=== PATIENT | male | born 1970 | race Caucasian/White ===

== ENCOUNTER 2016-05-06 15:39 | Emergency (ER) | payer MEDICARE ==
[2015-06-15 11:07] VITALS: BMI 22.3
[~2016-05-06 15:39] MED LIST: HYDROCODONE-APA1 TAB PO; KEFLEX500 MG PO; OXYCONTIN80 MG PO; PROTONIX40 MG PO; ROXICODONE30 MG PO; XANAX2 MG PO
[2016-05-06 21:13] LABS: BASOPHILS 0.2 % (0.0-2.0); EOSINOPHILS 1.8 % (0-7); HEMATOCRIT 40.6 % (42.0-54.0); HEMOGLOBIN 13.5 g/dL (13.5-17.5); IMMATURE GRANULOCYTES 0.3 % (0-5); LYMPHOCYTES 9.7 % (15-50); MCH 29.2 pg (26.0-34.0); MCHC 33.3 g/dL (31.0-37.0); MCV 87.7 fL (80.0-100.0); MEAN PLATELET VOLUME 9.4 fL (7.4-10.4); MONOCYTES 12.5 % (2-11); NEUTROPHILS 75.5 % (40-80); PLATELET COUNT 202 10x3/uL (130-400); RBC 4.63 10x6/uL (4.20-6.10); RDW 13.8 % (11.5-14.5); WBC 11.7 10x3/uL (4.8-10.8)
[2016-05-06 21:39] LABS: ALKALINE PHOSPHATASE 358 U/L (46-116); ALT (SGPT) 145 U/L (10-68); BILIRUBIN - TOTAL 0.99 mg/dL (0.2-1.3); CALC OSMOLALITY 279 mosm/kg (275-300); CALCIUM 8.1 mg/dL (8.5-10.1); CARBON DIOXIDE 29.6 mmol/L (21.0-32.0); CHLORIDE - SERUM 101 mmol/L (98-107); CREATINE KINASE 122 UL (21-232); CREATININE - SERUM 0.7 mg/dL (0.6-1.3); GLUCOSE 99 mg/dL (74-106); POTASSIUM - SERUM 3.8 mmol/L (3.5-5.1); PROTEIN - SERUM 6.8 g/dL (6.4-8.2); SODIUM 140 mmol/L (136-145); UREA NITROGEN 14 mg/dL (7-18); eGFR NON AFRICAN AMERICAN > 90 mL/min (90-120)
[2016-05-16 16:14] LABS: AEROBE ID Final report (())
== END 2016-05-06 23:58 | disposition home or self-care (01) ==
LOC: D.ER 15:39
PROVIDERS: Emergency Medicine
DX: T24.311A Burn of third degree of right thigh, initial encounter (principal); T79.9XXA Unspecified early complication of trauma, initial encounter; W29.2XXA Contact with other powered household machinery, initial encounter; Y93.84 Activity, sleeping; Y92.019 Unspecified place in single-family (private) house as the place of occurrence of the external cause; R50.9 Fever, unspecified; G82.20 Paraplegia, unspecified; B19.20 Unspecified viral hepatitis C without hepatic coma; F32.9 Major depressive disorder, single episode, unspecified; F60.9 Personality disorder, unspecified

== ENCOUNTER 2016-06-04 15:12 | Emergency (ER) | payer MEDICARE ==
[2015-06-15 11:07] VITALS: BMI 22.3
== END 2016-06-04 17:37 | disposition home or self-care (01) ==
LOC: D.ER 15:12
DX: T24.201A Burn of second degree of unspecified site of right lower limb, except ankle and foot, initial encounter (principal); T31.0 Burns involving less than 10% of body surface; X16.XXXA Contact with hot heating appliances, radiators and pipes, initial encounter; Y93.89 Activity, other specified; Y92.019 Unspecified place in single-family (private) house as the place of occurrence of the external cause; L03.115 Cellulitis of right lower limb; B19.20 Unspecified viral hepatitis C without hepatic coma; F33.9 Major depressive disorder, recurrent, unspecified; F60.9 Personality disorder, unspecified

== ENCOUNTER 2016-07-09 11:14 | Emergency (ER) | payer MEDICARE ==
[2015-06-15 11:07] VITALS: BMI 22.3
== END 2016-07-09 15:56 | disposition home or self-care (01) ==
LOC: D.ER 11:14
DX: T24.001D Burn of unspecified degree of unspecified site of right lower limb, except ankle and foot, subsequent encounter (principal); X08.8XXD Exposure to other specified smoke, fire and flames, subsequent encounter; B19.20 Unspecified viral hepatitis C without hepatic coma; F60.9 Personality disorder, unspecified

== ENCOUNTER 2016-08-21 13:43 | Emergency (ER) | payer MEDICARE ==
[2015-06-15 11:07] VITALS: BMI 22.3
[2016-08-21 15:42] LABS: BASOPHILS 0.4 % (0-2); HEMATOCRIT 45.2 % (42.0-54.0); HEMOGLOBIN 14.3 g/dL (13.5-17.5); IMMATURE GRANULOCYTES 0.4 % (0-5); LYMPHOCYTES 17.4 % (15-50); MCH 28.8 pg (26.0-34.0); MCHC 31.6 g/dL (31.0-37.0); MCV 91.1 fL (80.0-100.0); MEAN PLATELET VOLUME 9.6 fL (7.4-10.4); MONOCYTES 9.2 % (2-11); NEUTROPHILS 70.6 % (40-80); PLATELET COUNT 237 10x3/uL (130-400); RBC 4.96 10x6/uL (4.20-6.10); RDW 14.1 % (11.5-14.5); WBC 9.7 10x3/uL (4.8-10.8)
[2016-08-21 16:16] LABS: ALBUMIN 3.5 g/dL (3.4-5.0); ALKALINE PHOSPHATASE 217 U/L (46-116); ALT (SGPT) 17 U/L (10-68); BILIRUBIN - TOTAL 0.29 mg/dL (0.2-1.3); CALC OSMOLALITY 278 mosm/kg (275-300); CALCIUM 8.5 mg/dL (8.5-10.1); CARBON DIOXIDE 25.1 mmol/L (21.0-32.0); CHLORIDE - SERUM 105 mmol/L (98-107); CREATININE - SERUM 0.6 mg/dL (0.6-1.3); GLUCOSE 89 mg/dL (74-106); LIPASE 60 U/L (73-393); POTASSIUM - SERUM 4.3 mmol/L (3.5-5.1); PROTEIN - SERUM 7.4 g/dL (6.4-8.2); SODIUM 141 mmol/L (136-145); UREA NITROGEN 11 mg/dL (7-18); eGFR NON AFRICAN AMERICAN > 90 mL/min (90-120)
== END 2016-08-21 17:28 | disposition home or self-care (01) ==
LOC: D.ER 13:43
PROVIDERS: Emergency Medicine
DX: S80.811A Abrasion, right lower leg, initial encounter (principal); X58.XXXA Exposure to other specified factors, initial encounter; Y93.89 Activity, other specified; Y92.89 Other specified places as the place of occurrence of the external cause; F17.200 Nicotine dependence, unspecified, uncomplicated

== ENCOUNTER 2017-02-18 12:05 | Inpatient (IN) | payer MEDICARE ==
[~2017-02-18] VITALS: Ht 180.3 cm; Wt 97.5 kg
[2017-02-18 13:53] LABS: BASOPHILS 0.4 % (0-2); EOSINOPHILS 3.8 % (0-7); HEMATOCRIT 44.2 % (42.0-54.0); HEMOGLOBIN 14.1 g/dL (13.5-17.5); IMMATURE GRANULOCYTES 0.2 % (0-5); LYMPHOCYTES 10.9 % (15-50); MCHC 31.9 g/dL (31.0-37.0); MCV 90.8 fL (80.0-100.0); MEAN PLATELET VOLUME 9.1 fL (7.4-10.4); MONOCYTES 8.1 % (2-11); NEUTROPHILS 76.6 % (40-80); PLATELET COUNT 271 10x3/uL (130-400); RBC 4.87 10x6/uL (4.20-6.10); RDW 14.2 % (11.5-14.5); WBC 10.5 10x3/uL (4.8-10.8)
[2017-02-18 14:04] LABS: INR 0.95 (0.85-1.17); PROTIME 12.5 SECONDS (11.6-15.0)
[2017-02-18 14:07] LABS: ALBUMIN 3.6 g/dL (3.4-5.0); ALKALINE PHOSPHATASE 182 U/L (46-116); ALT (SGPT) 17 U/L (10-68); BILIRUBIN - TOTAL 0.59 mg/dL (0.2-1.3); CALC OSMOLALITY 278 mosm/kg (275-300); CALCIUM 8.9 mg/dL (8.5-10.1); CARBON DIOXIDE 30.2 mmol/L (21.0-32.0); CHLORIDE - SERUM 101 mmol/L (98-107); CREATININE - SERUM 0.8 mg/dL (0.6-1.3); GLUCOSE 89 mg/dL (74-106); POTASSIUM - SERUM 3.6 mmol/L (3.5-5.1); PROTEIN - SERUM 8.6 g/dL (6.4-8.2); SODIUM 140 mmol/L (136-145); UREA NITROGEN 14 mg/dL (7-18); eGFR NON AFRICAN AMERICAN > 90 mL/min (90-120)
[2017-02-18 14:15] LABS: MAGNESIUM - SERUM 2.4 mg/dL (1.8-2.4); PRO BNP 38 pg/mL (0-125)
[2017-02-18 14:30] LABS: UDS - AMPHET NEGATIVE QUAL (NEGATIVE); UDS - BARB NEGATIVE QUAL (NEGATIVE); UDS - BENZO NEGATIVE QUAL (NEGATIVE); UDS - COCAINE NEGATIVE QUAL (NEGATIVE); UDS - OPIATE NEGATIVE QUAL (NEGATIVE); UDS - PCP NEGATIVE QUAL (NEGATIVE); UDS - THC NEGATIVE QUAL (NEGATIVE)
[2017-02-18 14:33] LABS: APPEARANCE CLOUDY (CLEAR); COLOR YELLOW (YELLOW)
[2017-02-18 14:34] LABS: BACTERIA MANY /hpf (NONE SEEN); BILIRUBIN NEGATIVE (NEGATIVE); EPITHELIAL CELLS 0-5 /hpf (0-5); GLUCOSE NEGATIVE (NEGATIVE); KETONE NEGATIVE (NEGATIVE); MUCUS <1+ /lpf (NONE SEEN); NITRITE POSITIVE (NEGATIVE); PROTEIN TRACE mg/dL (NEGATIVE); SPECIFIC GRAVITY 1.015 (1.005-1.020); UROBILINOGEN NORMAL (NORMAL); WHITE CELLS - URINE >50 /hpf (0-5)
[2017-02-18 16:51] LABS: ERYTHROCYTE SEDIMENTATION RATE 37 mm/hr (0-15)
[2017-02-18] MEDS ORDERED: XANAX1 MG PO (18:25)
[2017-02-18 18:28] VITALS: BP 111/60
--- NOTE | 2017-02-18 18:45 | NUR ---
ADMISSION COMPLETED. MIDLIINE TO R AC PATENT. REDNESS NOTED TO R FOOT WITH MULTIPLE SCABBED AREAS AND SORES TO RLE. REDNESS NOTED TO BUTTOCKS AND BACK. PARALYSIS TO LOWER EXTREMITES.
[2017-02-18 20:00] VITALS: BP 106/63
--- NOTE | 2017-02-18 20:00 | NUR ---
ASSESSMENT PER FLOWSHEET. IV PATENT RT AC MIDLINE OF NS AT 30CC'S/HR SITE CLEAR. RT FOOT RED SWOLLEN WITH FLAKES OF SKIN PEELING OFF. SCABS AND SORES NOTED TO BACK AND LEGS. PT IS A PARAPLEGIC VOIDS IN URINAL. SR UP X2 CALL LIGHT WITHIN REACH.
--- NOTE | 2017-02-18 21:00 | NUR ---
MEDS GIVEN PER MAR.
--- NOTE | 2017-02-19 00:09 | NUR ---
C/O PAIN IN RT FOOT AREA. RATES PAIN LEVEL #5-6. MORPHINE 4MG IVP GIVEN FOR PAIN CONTROL.
--- NOTE | 2017-02-19 02:45 | NUR ---
EYES CLOSED RESPIRATIONS WITH EASE AND UNLABORED. SR UP X2 CALL LIGHT WITHIN REACH.
[2017-02-19 04:00] VITALS: BP 100/56
[2017-02-19 05:12] LABS: BASOPHILS 0.1 % (0-2); EOSINOPHILS 4.4 % (0-7); HEMATOCRIT 35.8 % (42.0-54.0); HEMOGLOBIN 11.6 g/dL (13.5-17.5); IMMATURE GRANULOCYTES 0.3 % (0-5); LYMPHOCYTES 13.2 % (15-50); MCH 29.3 pg (26.0-34.0); MCHC 32.4 g/dL (31.0-37.0); MCV 90.4 fL (80.0-100.0); MONOCYTES 8.8 % (2-11); NEUTROPHILS 73.2 % (40-80); PLATELET COUNT 220 10x3/uL (130-400); RBC 3.96 10x6/uL (4.20-6.10); RDW 14.4 % (11.5-14.5)
[2017-02-19 05:15] LABS: WBC 7.3 10x3/uL (4.8-10.8)
[2017-02-19 05:49] LABS: ALKALINE PHOSPHATASE 186 U/L (46-116); CALC OSMOLALITY 273 mosm/kg (275-300); CALCIUM 8.1 mg/dL (8.5-10.1); CHLORIDE - SERUM 103 mmol/L (98-107); CREATININE - SERUM 0.8 mg/dL (0.6-1.3); GLUCOSE 104 mg/dL (74-106); POTASSIUM - SERUM 3.7 mmol/L (3.5-5.1); SODIUM 137 mmol/L (136-145); UREA NITROGEN 13 mg/dL (7-18); eGFR NON AFRICAN AMERICAN > 90 mL/min (90-120)
[2017-02-19 06:11] LABS: ALBUMIN 2.6 g/dL (3.4-5.0); ALT (SGPT) 58 U/L (10-68); PROTEIN - SERUM 6.4 g/dL (6.4-8.2)
--- NOTE | 2017-02-19 07:40 | NUR ---
ASSESSMENT PER FLOW SHEET.PT WITHOUT DISTRESS.REQUEST PAIN MEDS WITH AM MEDS. STATES PAIN 8/10 TO RIGHT FOOT.SWELLING NOTED TO BLE,BUT SWELLING MORE PROMINENT ON RIGHT. SCATTERED SCABS SPORATIC ON BODY.MONITOR FOR NEEDS.CALL LIGHT IN REACH.
[2017-02-19 08:13] VITALS: BP 97/64
[2017-02-19 11:48] VITALS: BP 107/67
[2017-02-19 16:56] VITALS: BP 107/72
--- NOTE | 2017-02-19 18:14 | NUR ---
REMAINS WITHOUT NEEDS.PAIN CONTROLLED WITH MEDS ORDERED.CONT PLAN OF CARE
[2017-02-19 20:00] VITALS: BP 121/70
[2017-02-20] VITALS: BP 108/56
[2017-02-20 04:00] VITALS: BP 105/62
[2017-02-20 05:51] LABS: BASOPHILS 0.2 % (0-2); EOSINOPHILS 9.6 % (0-7); HEMATOCRIT 36.5 % (42.0-54.0); HEMOGLOBIN 11.4 g/dL (13.5-17.5); IMMATURE GRANULOCYTES 0.3 % (0-5); LYMPHOCYTES 21.1 % (15-50); MCH 28.3 pg (26.0-34.0); MCHC 31.2 g/dL (31.0-37.0); MCV 90.6 fL (80.0-100.0); MEAN PLATELET VOLUME 9.2 fL (7.4-10.4); MONOCYTES 12.2 % (2-11); NEUTROPHILS 56.6 % (40-80); PLATELET COUNT 232 10x3/uL (130-400); RBC 4.03 10x6/uL (4.20-6.10); RDW 14.7 % (11.5-14.5); WBC 5.8 10x3/uL (4.8-10.8)
[2017-02-20 06:24] LABS: ALBUMIN 2.6 g/dL (3.4-5.0); ALKALINE PHOSPHATASE 162 U/L (46-116); ALT (SGPT) 51 U/L (10-68); CALC OSMOLALITY 275 mosm/kg (275-300); CHLORIDE - SERUM 103 mmol/L (98-107); CREATININE - SERUM 0.9 mg/dL (0.6-1.3); GLUCOSE 104 mg/dL (74-106); PROTEIN - SERUM 6.4 g/dL (6.4-8.2); SODIUM 137 mmol/L (136-145); UREA NITROGEN 17 mg/dL (7-18); eGFR NON AFRICAN AMERICAN > 90 mL/min (90-120)
[2017-02-20 07:54] VITALS: BP 101/66
--- NOTE | 2017-02-20 08:45 | NUR ---
PT RESTING, FAMILY AT BEDSIDE, NO SIGNS OF ACUTE DISTRESS. BED IN LOWEST POSITION, SIDE RAILS UP X 2, CALL LIGHT WITHIN REACH.
--- NOTE | 2017-02-20 10:16 | NUR ---
Patient Name: SIDNEY KOWALSKI Admission Status: ER Accout number: [id number] Admission Date: 02-18-2017 : 1970 Admission Diagnosis: Attending: JERRY ALATORRE Current LOS: 2 Anticipated DC Date: 02-25-2017 Planned Disposition: Home Primary Insurance: MEDICARE A & B Discharge Planning Comments: CM MET WITH PATIENT AND FAMILY REGARDING D/C NEEDS AND PLANS. PATIENT STATED HE LIVES WITH HIS FAMILY AND THEY WILL DRIVE HIM HOME AT DISCHARGE. PATIENT IS A PARAPLEGIC. PAITIENT STATED NO STEPS TO ENTER HOME BUT HAS STAIRS INSIDE HOME. PATIENTS ROOM IS DOWNSTAIRS AND FAMILY HELPS TAKE CARE OF HIM. PATIENT HAS A HOSPITAL BED AND WHEELCHAIR AT HOME. PATIENT DOES NOT HAVE A PCP AND PHARMACY IS [facility]. PATIENT DOES NOT WANT HH AT THIS TIME. CM WILL CONTINUE TO FOLLOW PATIENT WITH D/C NEEDS AND PLANS. PCP NONE [facility]- [phone] MATT ([facility]) [phone] Rerecording Mixer: Agnes Dumont Is the patient Alert and Oriented? Yes 0 * How many steps to enter\exit or inside your home? 0 0 * PCP NONE 0 * Pharmacy [facility] 0 * Preadmission Environment Home with Family 0 * ADLs Partial Dependent 0 * Partial ADLs (Assistance needed) Bathing Dressing Toileting Transfers 0 * Equipment Hospital Bed Wheelchair 0 * List name and contact numbers for known caregivers / representatives who currently or will assist patient after discharge: MATT ([facility]) [phone] 0 * Community resources currently utilized None 0 * Additional services required to return to the preadmission environment? Yes 0 * Can the patient safely return to the preadmission environment? Yes 0 * Has this patient been hospitalized within the prior 30 days at any hospital? No 0 Grand Total: 0
[2017-02-20 12:00] VITALS: BP 109/61
[2017-02-20 12:34] VITALS: Ht 180.3 cm; Wt 97.5 kg
[2017-02-20 15:27] VITALS: BP 90/52
[2017-02-20 20:00] VITALS: BP 97/54
--- NOTE | 2017-02-20 21:57 | NUR ---
C/O OF 8/10 BURNING PAIN TO EXTREMITIES. NO OTHER NEEDS NOTED.
[2017-02-21] VITALS: BP 95/42
[2017-02-21 04:00] VITALS: BP 97/53
--- NOTE | 2017-02-21 04:40 | NUR ---
NO CHANGES SINCE ASSESSMENT
--- NOTE | 2017-02-21 04:43 | NUR ---
PT SITTING UP IN BED AWAKE. NO DISTRESS NOTED. DENIES NEEDS. EMPTIED URINAL 350 CC'S. CONTINUE AUTOMOTIVE BUYER'S PLAN OF CARE.
[2017-02-21 05:12] LABS: BASOPHILS 0.3 % (0-2); EOSINOPHILS 10.6 % (0-7); HEMATOCRIT 37.1 % (42.0-54.0); HEMOGLOBIN 11.8 g/dL (13.5-17.5); IMMATURE GRANULOCYTES 0.3 % (0-5); LYMPHOCYTES 17.4 % (15-50); MCH 28.7 pg (26.0-34.0); MCHC 31.8 g/dL (31.0-37.0); MCV 90.3 fL (80.0-100.0); MEAN PLATELET VOLUME 9.1 fL (7.4-10.4); MONOCYTES 10.3 % (2-11); NEUTROPHILS 61.1 % (40-80); PLATELET COUNT 224 10x3/uL (130-400); RBC 4.11 10x6/uL (4.20-6.10); RDW 14.7 % (11.5-14.5); WBC 5.9 10x3/uL (4.8-10.8)
[2017-02-21 05:55] LABS: ALBUMIN 2.7 g/dL (3.4-5.0); ALKALINE PHOSPHATASE 175 U/L (46-116); ALT (SGPT) 54 U/L (10-68); CALC OSMOLALITY 275 mosm/kg (275-300); CALCIUM 7.8 mg/dL (8.5-10.1); CARBON DIOXIDE 26.9 mmol/L (21.0-32.0); CHLORIDE - SERUM 102 mmol/L (98-107); CREATININE - SERUM 0.8 mg/dL (0.6-1.3); GLUCOSE 123 mg/dL (74-106); POTASSIUM - SERUM 3.8 mmol/L (3.5-5.1); PROTEIN - SERUM 6.7 g/dL (6.4-8.2); SODIUM 137 mmol/L (136-145); UREA NITROGEN 16 mg/dL (7-18); eGFR NON AFRICAN AMERICAN > 90 mL/min (90-120)
[2017-02-21 07:06] VITALS: BP 108/64
--- NOTE | 2017-02-21 08:00 | NUR ---
ASSESSMENT PER FLOW SHEET.PT WITHOUT DISTRESS.CALL LIGHT IN REACH
[2017-02-21 10:58] VITALS: BP 112/69
[2017-02-21] MEDS ORDERED: LEVAQUIN750 MG PO (12:21)
[2017-02-21] MEDS ORDERED: CLEOCIN HCL300 MG PO (12:21)
--- NOTE | 2017-02-21 12:30 | NUR ---
TO PT ROOM TO GO OVER DISCHARGE PAPERS.PT IS WANTING TO EAT LUNCH BEFORE PAPERS ARE REVIEWED.PAIN MEDS ORDERED PER MAR
--- NOTE | 2017-02-21 14:40 | NUR ---
STILL HASNT EATEN LUNCH. PT IS RESERVED. INSTRUCTED PT WE WOULD BE GOING OVER DC PAPERS AND INSTRUCTED HIM HE WOULD NEED TO CALL FOR RIDE HOME. HE SAID HE NEEEDED A BIT LONGER.
[2017-02-21 15:02] VITALS: BP 121/62
--- NOTE | 2017-02-21 15:12 | NUR ---
IV ABX ORDERED. PT STILL VERY RELUCTANT ABOUT DISCARGE PAPERS AND DC HOME.
--- NOTE | 2017-02-21 16:15 | NUR ---
ATTEMPTED TO GO OVER DC PAPERS. PT STILL NOT WANTING TO AT THIS TIME.PT STATES HE HAS SOME NAUSEA.
--- NOTE | 2017-02-21 18:09 | NUR ---
DISCHARGE INSTRUCTIONS WITH PT. HE STATES FAMILY IS NOT HOME AT THIS TIME.HE ALSO STATED HE WOULD NOT HAVE A RIDE HOME TODAY,BUT WOULD IN AM. I HAVE SPOKE TO VAL WITH CASE MANAGEMENT AND PT WOULD QUALIFY FOR AMBULANCS TRANSPORT TO HOME.
--- NOTE | 2017-02-21 18:14 | NUR ---
SPOKE WITH MATT KOWALSKI [phone] SHE IS HIS CAREGIVER. SHE IS UNABLE TO DRIVE AT NIGHT.
--- NOTE | 2017-02-21 18:17 | NUR ---
CALL TO DR. ABRAHAM RYAN. PT POSS DC IN AM WHEN FAMILY CAN COME PICK HIM UP.PT STATES HE DOESNT WANT AMBULANCE TRANSPORT BECAUSE HE HAS TO PAY 3800.00 EACH TIME.
--- NOTE | 2017-02-21 18:25 | NUR ---
SPOKE WITH PT WILL DC IN AM.
--- NOTE | 2017-02-21 18:30 | NUR ---
SPOKE WITH MATT, PT MOTHER AND CAREGIVER. SHE HAS BEEN INFORMED PT WILL DC BY 0800 IN AM. SHE SAYS SHE WILL BE HERE TO PICK HIM UP.
[2017-02-21 20:00] VITALS: BP 102/50
[2017-02-22] VITALS: BP 110/63
--- NOTE | 2017-02-22 00:36 | NUR ---
PATIENT REQUESTED PAIN MEDICATION FOR 8/10 PAIN. NURSE AND AIDE DOING BED BATH WITH LINEN CHANGE
--- NOTE | 2017-02-22 01:00 | NUR ---
OPEN SORE NOTED TO THE HEAD OF THE PENIS
--- NOTE | 2017-02-22 01:32 | NUR ---
PT SITTING UP IN BED AWAKE WATCHING TV. DENIES NEEDS. NO DISTRESS NOTED. CONTINUE SHIPPING CLERK CRATING'S PLAN OF CARE.
[2017-02-22 04:00] VITALS: BP 113/71
[2017-02-22 05:50] LABS: BASOPHILS 0.5 % (0-2); EOSINOPHILS 8.6 % (0-7); HEMATOCRIT 36.8 % (42.0-54.0); HEMOGLOBIN 11.9 g/dL (13.5-17.5); IMMATURE GRANULOCYTES 0.5 % (0-5); LYMPHOCYTES 16.3 % (15-50); MCH 29.2 pg (26.0-34.0); MCHC 32.3 g/dL (31.0-37.0); MCV 90.4 fL (80.0-100.0); MEAN PLATELET VOLUME 9.2 fL (7.4-10.4); MONOCYTES 13.7 % (2-11); NEUTROPHILS 60.4 % (40-80); PLATELET COUNT 211 10x3/uL (130-400); RBC 4.07 10x6/uL (4.20-6.10); RDW 14.9 % (11.5-14.5); WBC 6.4 10x3/uL (4.8-10.8)
[2017-02-22 06:20] LABS: ALBUMIN 2.6 g/dL (3.4-5.0); ALKALINE PHOSPHATASE 281 U/L (46-116); CALC OSMOLALITY 275 mosm/kg (275-300); CALCIUM 7.8 mg/dL (8.5-10.1); CHLORIDE - SERUM 105 mmol/L (98-107); CREATININE - SERUM 0.6 mg/dL (0.6-1.3); GLUCOSE 99 mg/dL (74-106); POTASSIUM - SERUM 3.9 mmol/L (3.5-5.1); PROTEIN - SERUM 6.5 g/dL (6.4-8.2); SODIUM 138 mmol/L (136-145); UREA NITROGEN 12 mg/dL (7-18); eGFR NON AFRICAN AMERICAN > 90 mL/min (90-120)
[2017-02-22 06:24] LABS: ALT (SGPT) 101 U/L (10-68)
--- NOTE | 2017-02-22 07:30 | NUR ---
ASSESSMENT PER FLOW SHEET.PT WITHOUT DISTRESS.MIDLINE DCD WITH CATH TIP INTACT.
[2017-02-22 08:54] VITALS: BP 106/63
[2017-02-22] MEDS ORDERED: ULTRAM50 MG PO (09:00)
--- NOTE | 2017-02-22 09:15 | NUR ---
MEDS CALLED TO [facility]
--- NOTE | 2017-02-22 09:25 | NUR ---
LEFT UNIT VIA WHEELCHAIR FOR TRANSPORT HOME
== END 2017-02-22 09:25 | disposition home or self-care (01) | DRG 603 ==
LOC: D.ER 12:05 → D.MS 14:48
PROVIDERS: Nurse Practitioner Family; Orthopaedic Surgery; ADMIT Family Medicine Adult Medicine
PROC: 05HB33Z Insertion of Infusion Device into Right Basilic Vein, Percutaneous Approach (ICD-10-PCS; principal; 2017-02-18)
PROC: B54MZZA Ultrasonography of Right Upper Extremity Veins, Guidance (ICD-10-PCS; 2017-02-18)
DX: L03.115 Cellulitis of right lower limb (principal); G82.20 Paraplegia, unspecified; S91.301A Unspecified open wound, right foot, initial encounter; X58.XXXA Exposure to other specified factors, initial encounter; B19.20 Unspecified viral hepatitis C without hepatic coma; F60.9 Personality disorder, unspecified; F41.9 Anxiety disorder, unspecified; G89.29 Other chronic pain; R21 Rash and other nonspecific skin eruption

== ENCOUNTER 2017-02-25 10:35 | Emergency (ER) | payer MEDICARE ==
[2017-02-20 12:34] VITALS: BMI 29.9
[~2017-02-25 10:35] MED LIST changes: +CLEOCIN HCL300 MG PO; +LEVAQUIN750 MG PO; +ULTRAM50 MG PO; +XANAX1 MG PO
== END 2017-02-25 12:53 | disposition home or self-care (01) ==
LOC: D.ER 10:35
DX: L03.115 Cellulitis of right lower limb (principal); G82.20 Paraplegia, unspecified; B19.20 Unspecified viral hepatitis C without hepatic coma

== ENCOUNTER 2017-04-09 07:30 | Inpatient (IN) | payer MEDICARE ==
[~2017-04-09] VITALS: Ht 180.3 cm; Wt 90.7 kg
[2017-04-09 08:36] LABS: HEMATOCRIT 42.1 % (42.0-54.0); HEMOGLOBIN 13.9 g/dL (13.5-17.5); LYMPHOCYTES 10.3 % (15-50); MCH 28.7 pg (26.0-34.0); MCV 86.8 fL (80.0-100.0); MEAN PLATELET VOLUME 8.9 fL (7.4-10.4); NEUTROPHILS 78.3 % (40-80); PLATELET COUNT 250 10x3/uL (130-400); RBC 4.85 10x6/uL (4.20-6.10); WBC 11.1 10x3/uL (4.8-10.8)
[2017-04-09 08:54] LABS: ALBUMIN 3.5 g/dL (3.4-5.0); ALKALINE PHOSPHATASE 171 U/L (46-116); ALT (SGPT) 17 U/L (10-68); BILIRUBIN - TOTAL 0.74 mg/dL (0.2-1.3); CALC OSMOLALITY 270 mosm/kg (275-300); CALCIUM 8.7 mg/dL (8.5-10.1); CARBON DIOXIDE 28.4 mmol/L (21.0-32.0); CHLORIDE - SERUM 100 mmol/L (98-107); CREATININE - SERUM 0.9 mg/dL (0.6-1.3); GLUCOSE 96 mg/dL (74-106); POTASSIUM - SERUM 3.7 mmol/L (3.5-5.1); PROTEIN - SERUM 7.7 g/dL (6.4-8.2); SODIUM 136 mmol/L (136-145); UREA NITROGEN 10 mg/dL (7-18); eGFR NON AFRICAN AMERICAN > 90 mL/min (90-120)
[2017-04-09] MEDS ORDERED: OXYCONTIN30 MG PO (15:46)
[2017-04-09] MEDS ORDERED: XANAX2 MG PO (15:47)
[2017-04-09 15:48] VITALS: BP 147/84; BMI 27.9
[2017-04-09 15:59] VITALS: BP 147/84
[2017-04-09 20:00] VITALS: BP 129/75
[2017-04-10] VITALS: BP 131/82
[2017-04-10 04:00] VITALS: BP 119/83
[2017-04-10 05:19] LABS: BASOPHILS 0.4 % (0-2); EOSINOPHILS 5.6 % (0-7); HEMATOCRIT 40.1 % (42.0-54.0); HEMOGLOBIN 12.8 g/dL (13.5-17.5); IMMATURE GRANULOCYTES 0.2 % (0-5); LYMPHOCYTES 12.7 % (15-50); MCH 28.6 pg (26.0-34.0); MCHC 31.9 g/dL (31.0-37.0); MEAN PLATELET VOLUME 9.3 fL (7.4-10.4); MONOCYTES 10.8 % (2-11); NEUTROPHILS 70.3 % (40-80); PLATELET COUNT 225 10x3/uL (130-400); RBC 4.47 10x6/uL (4.20-6.10); RDW 14.5 % (11.5-14.5)
[2017-04-10 05:23] LABS: MCV 89.7 fL (80.0-100.0); WBC 8.3 10x3/uL (4.8-10.8)
[2017-04-10 05:34] LABS: ALBUMIN 2.7 g/dL (3.4-5.0); ALKALINE PHOSPHATASE 171 U/L (46-116); BILIRUBIN - TOTAL 0.36 mg/dL (0.2-1.3); CALCIUM 8.1 mg/dL (8.5-10.1); CARBON DIOXIDE 25.4 mmol/L (21.0-32.0); CHLORIDE - SERUM 104 mmol/L (98-107); CREATININE - SERUM 0.8 mg/dL (0.6-1.3); GLUCOSE 113 mg/dL (74-106); POTASSIUM - SERUM 3.6 mmol/L (3.5-5.1); PROTEIN - SERUM 6.6 g/dL (6.4-8.2); SODIUM 137 mmol/L (136-145); eGFR NON AFRICAN AMERICAN > 90 mL/min (90-120)
[2017-04-10 05:36] LABS: ALT (SGPT) 24 U/L (10-68); CALC OSMOLALITY 274 mosm/kg (275-300); UREA NITROGEN 13 mg/dL (7-18)
[2017-04-10 07:55] VITALS: BP 134/85
[2017-04-10 11:11] VITALS: BMI 27.9
[2017-04-10 12:13] VITALS: BP 136/83
[2017-04-10 16:30] VITALS: BP 121/83
[2017-04-10 20:00] VITALS: BP 109/63
[2017-04-11] VITALS: BP 96/56
[2017-04-11 04:00] VITALS: BP 131/83
[2017-04-11 07:49] LABS: BASOPHILS 0.2 % (0-2); EOSINOPHILS 5.5 % (0-7); HEMATOCRIT 41.2 % (42.0-54.0); HEMOGLOBIN 13.2 g/dL (13.5-17.5); IMMATURE GRANULOCYTES 0.3 % (0-5); LYMPHOCYTES 10.7 % (15-50); MCH 28.6 pg (26.0-34.0); MCV 89.4 fL (80.0-100.0); MEAN PLATELET VOLUME 9.1 fL (7.4-10.4); NEUTROPHILS 74.3 % (40-80); PLATELET COUNT 207 10x3/uL (130-400); RBC 4.61 10x6/uL (4.20-6.10); RDW 14.3 % (11.5-14.5); WBC 9.1 10x3/uL (4.8-10.8)
[2017-04-11 08:10] LABS: ALBUMIN 2.9 g/dL (3.4-5.0); ALKALINE PHOSPHATASE 209 U/L (46-116); ALT (SGPT) 40 U/L (10-68); BILIRUBIN - TOTAL 0.47 mg/dL (0.2-1.3); CALC OSMOLALITY 276 mosm/kg (275-300); CALCIUM 8.1 mg/dL (8.5-10.1); CARBON DIOXIDE 28.2 mmol/L (21.0-32.0); CHLORIDE - SERUM 102 mmol/L (98-107); CREATININE - SERUM 0.7 mg/dL (0.6-1.3); GLUCOSE 100 mg/dL (74-106); POTASSIUM - SERUM 4.4 mmol/L (3.5-5.1); PROTEIN - SERUM 6.3 g/dL (6.4-8.2); SODIUM 138 mmol/L (136-145); UREA NITROGEN 14 mg/dL (7-18); eGFR NON AFRICAN AMERICAN > 90 mL/min (90-120)
[2017-04-11 09:56] VITALS: BP 132/66
[2017-04-11 12:38] VITALS: BP 123/83
[2017-04-11 16:45] VITALS: BP 145/73
[2017-04-11 20:00] VITALS: BP 130/80
[2017-04-12] VITALS: BP 130/79
[2017-04-12 06:18] LABS: BASOPHILS 0.3 % (0-2); EOSINOPHILS 8.2 % (0-7); HEMATOCRIT 39.4 % (42.0-54.0); HEMOGLOBIN 12.7 g/dL (13.5-17.5); IMMATURE GRANULOCYTES 0.9 % (0-5); LYMPHOCYTES 12.3 % (15-50); MCH 28.5 pg (26.0-34.0); MCHC 32.2 g/dL (31.0-37.0); MCV 88.3 fL (80.0-100.0); MEAN PLATELET VOLUME 9.4 fL (7.4-10.4); MONOCYTES 10.1 % (2-11); NEUTROPHILS 68.2 % (40-80); PLATELET COUNT 222 10x3/uL (130-400); RBC 4.46 10x6/uL (4.20-6.10); RDW 14.4 % (11.5-14.5); WBC 7.8 10x3/uL (4.8-10.8)
[2017-04-12 06:56] LABS: ALBUMIN 2.8 g/dL (3.4-5.0); ALKALINE PHOSPHATASE 197 U/L (46-116); ALT (SGPT) 50 U/L (10-68); BILIRUBIN - TOTAL 0.27 mg/dL (0.2-1.3); CALC OSMOLALITY 278 mosm/kg (275-300); CALCIUM 7.9 mg/dL (8.5-10.1); CARBON DIOXIDE 26.8 mmol/L (21.0-32.0); CHLORIDE - SERUM 103 mmol/L (98-107); CREATININE - SERUM 0.8 mg/dL (0.6-1.3); GLUCOSE 91 mg/dL (74-106); POTASSIUM - SERUM 4.3 mmol/L (3.5-5.1); PROTEIN - SERUM 6.3 g/dL (6.4-8.2); SODIUM 139 mmol/L (136-145); UREA NITROGEN 16 mg/dL (7-18); eGFR NON AFRICAN AMERICAN > 90 mL/min (90-120)
[2017-04-12 08:44] VITALS: BP 116/83
[2017-04-12 16:36] VITALS: BP 144/79
[2017-04-12 20:00] VITALS: BP 129/83
[2017-04-13] VITALS: BP 124/76
[2017-04-13 04:50] LABS: BASOPHILS 0.3 % (0-2); EOSINOPHILS 10.1 % (0-7); HEMATOCRIT 39.2 % (42.0-54.0); HEMOGLOBIN 12.4 g/dL (13.5-17.5); IMMATURE GRANULOCYTES 0.8 % (0-5); LYMPHOCYTES 18.2 % (15-50); MCH 28.2 pg (26.0-34.0); MCHC 31.6 g/dL (31.0-37.0); MCV 89.1 fL (80.0-100.0); MEAN PLATELET VOLUME 9.2 fL (7.4-10.4); MONOCYTES 11.7 % (2-11); NEUTROPHILS 58.9 % (40-80); PLATELET COUNT 213 10x3/uL (130-400); RDW 14.2 % (11.5-14.5); WBC 6.4 10x3/uL (4.8-10.8)
[2017-04-13 05:21] LABS: ALBUMIN 2.7 g/dL (3.4-5.0); ALKALINE PHOSPHATASE 256 U/L (46-116); BILIRUBIN - TOTAL 0.26 mg/dL (0.2-1.3); CALC OSMOLALITY 276 mosm/kg (275-300); CALCIUM 8.5 mg/dL (8.5-10.1); CARBON DIOXIDE 28.8 mmol/L (21.0-32.0); CHLORIDE - SERUM 102 mmol/L (98-107); CREATININE - SERUM 0.8 mg/dL (0.6-1.3); GLUCOSE 105 mg/dL (74-106); POTASSIUM - SERUM 4.2 mmol/L (3.5-5.1); PROTEIN - SERUM 6.2 g/dL (6.4-8.2); SODIUM 138 mmol/L (136-145); UREA NITROGEN 15 mg/dL (7-18); eGFR NON AFRICAN AMERICAN > 90 mL/min (90-120)
[2017-04-13 05:22] LABS: ALT (SGPT) 109 U/L (10-68)
[2017-04-13 06:00] VITALS: BP 121/67
[2017-04-13 08:04] VITALS: BP 141/90
[2017-04-13 12:07] VITALS: BP 139/78
[2017-04-13 14:27] VITALS: Ht 180.3 cm; Wt 90.7 kg
[2017-04-13 16:55] VITALS: BP 135/72
[2017-04-13 22:05] VITALS: BP 113/68
[2017-04-14 01:44] VITALS: BP 122/50
[2017-04-14 04:00] VITALS: BP 133/88
[2017-04-14 04:42] LABS: BASOPHILS 0.4 % (0-2); EOSINOPHILS 9.8 % (0-7); HEMATOCRIT 37.8 % (42.0-54.0); HEMOGLOBIN 12.1 g/dL (13.5-17.5); IMMATURE GRANULOCYTES 0.7 % (0-5); LYMPHOCYTES 17.8 % (15-50); MCH 28.3 pg (26.0-34.0); MCV 88.3 fL (80.0-100.0); MEAN PLATELET VOLUME 9.4 fL (7.4-10.4); MONOCYTES 10.3 % (2-11); PLATELET COUNT 231 10x3/uL (130-400); RBC 4.28 10x6/uL (4.20-6.10); RDW 14.4 % (11.5-14.5); WBC 6.7 10x3/uL (4.8-10.8)
[2017-04-14 04:51] LABS: ALBUMIN 2.7 g/dL (3.4-5.0); ALKALINE PHOSPHATASE 332 U/L (46-116); BILIRUBIN - TOTAL 0.38 mg/dL (0.2-1.3); CALC OSMOLALITY 272 mosm/kg (275-300); CALCIUM 8.4 mg/dL (8.5-10.1); CARBON DIOXIDE 26.5 mmol/L (21.0-32.0); CHLORIDE - SERUM 101 mmol/L (98-107); CREATININE - SERUM 0.8 mg/dL (0.6-1.3); GLUCOSE 93 mg/dL (74-106); PROTEIN - SERUM 6.8 g/dL (6.4-8.2); SODIUM 136 mmol/L (136-145); UREA NITROGEN 14 mg/dL (7-18); eGFR NON AFRICAN AMERICAN > 90 mL/min (90-120)
[2017-04-14 04:55] LABS: ALT (SGPT) 220 U/L (10-68)
[2017-04-14 08:35] VITALS: BP 140/90
[2017-04-14] MEDS ORDERED: VIBRAMYCIN 100100 MG PO (11:23)
[2017-04-14 12:30] VITALS: BP 140/80
== END 2017-04-14 19:02 | disposition home or self-care (01) | DRG 603 ==
LOC: D.ER 07:30 → D.MS 13:51
PROVIDERS: Emergency Medicine
DX: L03.115 Cellulitis of right lower limb (principal); G82.20 Paraplegia, unspecified; F41.9 Anxiety disorder, unspecified; K21.9 Gastro-esophageal reflux disease without esophagitis; R21 Rash and other nonspecific skin eruption; S91.301A Unspecified open wound, right foot, initial encounter; G89.29 Other chronic pain; B95.7 Other staphylococcus as the cause of diseases classified elsewhere

== ENCOUNTER 2017-04-15 08:59 | Emergency (ER) | payer MEDICARE ==
[2017-04-13 14:27] VITALS: BMI 27.9
[~2017-04-15 08:59] MED LIST changes: +OXYCONTIN30 MG PO; +VIBRAMYCIN 100100 MG PO
== END 2017-04-15 11:25 | disposition home or self-care (01) ==
LOC: D.ER 08:59
DX: R42 Dizziness and giddiness (principal)

== ENCOUNTER 2017-04-16 16:32 | Emergency (ER) | payer MEDICARE ==
[2017-04-13 14:27] VITALS: BMI 27.9
[2017-04-16 17:09] LABS: APPEARANCE CLEAR (CLEAR); BILIRUBIN NEGATIVE (NEGATIVE); COLOR DK YELLOW (YELLOW); GLUCOSE NEGATIVE (NEGATIVE); KETONE NEGATIVE (NEGATIVE); NITRITE NEGATIVE (NEGATIVE); PROTEIN NEGATIVE (NEGATIVE); SPECIFIC GRAVITY 1.015 (1.005-1.020); UROBILINOGEN NORMAL (NORMAL)
[2017-04-16 17:11] LABS: BACTERIA FEW /hpf (NONE SEEN); EPITHELIAL CELLS 0-5 /hpf (0-5)
== END 2017-04-16 17:33 | disposition home or self-care (01) ==
LOC: D.ER 16:32
PROVIDERS: Emergency Medicine
DX: N39.0 Urinary tract infection, site not specified (principal); M79.661 Pain in right lower leg; M54.9 Dorsalgia, unspecified; B19.20 Unspecified viral hepatitis C without hepatic coma

== ENCOUNTER 2017-05-08 12:09 | Emergency (ER) | payer MEDICARE ==
[2017-04-13 14:27] VITALS: BMI 27.9
== END 2017-05-08 16:29 | disposition home or self-care (01) ==
LOC: D.ER 12:09
DX: L03.115 Cellulitis of right lower limb (principal); B19.20 Unspecified viral hepatitis C without hepatic coma

== ENCOUNTER 2017-05-14 03:40 | Emergency (ER) | payer MEDICARE ==
[2017-04-13 14:27] VITALS: BMI 27.9
[2017-05-14 05:22] LABS: BASOPHILS 0.4 % (0-2); EOSINOPHILS 7.5 % (0-7); HEMATOCRIT 37.9 % (42.0-54.0); HEMOGLOBIN 12.2 g/dL (13.5-17.5); IMMATURE GRANULOCYTES 0.3 % (0-5); LYMPHOCYTES 18.7 % (15-50); MCH 28.3 pg (26.0-34.0); MCHC 32.2 g/dL (31.0-37.0); MCV 87.9 fL (80.0-100.0); MEAN PLATELET VOLUME 8.7 fL (7.4-10.4); MONOCYTES 10.6 % (2-11); NEUTROPHILS 62.5 % (40-80); RBC 4.31 10x6/uL (4.20-6.10); RDW 14.6 % (11.5-14.5); WBC 6.9 10x3/uL (4.8-10.8)
[2017-05-14 05:25] LABS: PLATELET COUNT 170 10x3/uL (130-400)
[2017-05-14 05:38] LABS: ALBUMIN 3.2 g/dL (3.4-5.0); ALKALINE PHOSPHATASE 172 U/L (46-116); ALT (SGPT) 37 U/L (10-68); CALC OSMOLALITY 277 mosm/kg (275-300); CALCIUM 8.4 mg/dL (8.5-10.1); CARBON DIOXIDE 30.4 mmol/L (21.0-32.0); CHLORIDE - SERUM 103 mmol/L (98-107); CREATININE - SERUM 0.9 mg/dL (0.6-1.3); GLUCOSE 97 mg/dL (74-106); POTASSIUM - SERUM 4.7 mmol/L (3.5-5.1); PROTEIN - SERUM 7.1 g/dL (6.4-8.2); SODIUM 138 mmol/L (136-145); UREA NITROGEN 19 mg/dL (7-18); eGFR NON AFRICAN AMERICAN > 90 mL/min (90-120)
[2017-05-14 05:45] LABS: PRO BNP 82 pg/mL (0-125)
== END 2017-05-14 06:40 | disposition home or self-care (01) ==
LOC: D.ER 03:40
PROVIDERS: Emergency Medicine
DX: L03.116 Cellulitis of left lower limb (principal); L03.115 Cellulitis of right lower limb; B19.20 Unspecified viral hepatitis C without hepatic coma; F17.200 Nicotine dependence, unspecified, uncomplicated

== ENCOUNTER 2017-06-09 08:43 | Inpatient (IN) | payer MEDICARE ==
[~2017-06-09] VITALS: Ht 180.3 cm; Wt 97.7 kg
[2017-06-09 09:33] LABS: BASOPHILS 0.7 % (0-2); EOSINOPHILS 4.3 % (0-7); HEMATOCRIT 42.5 % (42.0-54.0); HEMOGLOBIN 13.5 g/dL (13.5-17.5); IMMATURE GRANULOCYTES 0.4 % (0-5); MCH 28.5 pg (26.0-34.0); MCHC 31.8 g/dL (31.0-37.0); MCV 89.9 fL (80.0-100.0); MEAN PLATELET VOLUME 9.5 fL (7.4-10.4); MONOCYTES 11.6 % (2-11); RBC 4.73 10x6/uL (4.20-6.10); RDW 14.6 % (11.5-14.5); WBC 7.6 10x3/uL (4.8-10.8)
[2017-06-09 09:34] LABS: PLATELET COUNT 212 10x3/uL (130-400)
[2017-06-09 09:46] LABS: ALBUMIN 3.5 g/dL (3.4-5.0); ALKALINE PHOSPHATASE 168 U/L (46-116); ALT (SGPT) 20 U/L (10-68); BILIRUBIN - TOTAL 0.32 mg/dL (0.2-1.3); CALC OSMOLALITY 281 mosm/kg (275-300); CALCIUM 9.2 mg/dL (8.5-10.1); CARBON DIOXIDE 29.6 mmol/L (21.0-32.0); CHLORIDE - SERUM 104 mmol/L (98-107); CREATININE - SERUM 0.8 mg/dL (0.6-1.3); GLUCOSE 92 mg/dL (74-106); POTASSIUM - SERUM 4.1 mmol/L (3.5-5.1); SODIUM 141 mmol/L (136-145); UREA NITROGEN 16 mg/dL (7-18); eGFR NON AFRICAN AMERICAN > 90 mL/min (90-120)
[2017-06-09 10:21] LABS: APPEARANCE CLEAR (CLEAR); BACTERIA FEW /hpf (NONE SEEN); BILIRUBIN NEGATIVE (NEGATIVE); COLOR YELLOW (YELLOW); EPITHELIAL CELLS 0-5 /hpf (0-5); GLUCOSE NEGATIVE (NEGATIVE); KETONE NEGATIVE (NEGATIVE); MUCUS <1+ /lpf (NONE SEEN); NITRITE NEGATIVE (NEGATIVE); PROTEIN NEGATIVE (NEGATIVE); SPECIFIC GRAVITY 1.015 (1.005-1.020); UROBILINOGEN NORMAL (NORMAL)
[2017-06-10 04:00] VITALS: BP 117/87
[2017-06-10 04:23] VITALS: BP 93/62
[2017-06-10 04:50] LABS: BASOPHILS 0.5 % (0-2); EOSINOPHILS 5.4 % (0-7); HEMATOCRIT 37.6 % (42.0-54.0); HEMOGLOBIN 11.7 g/dL (13.5-17.5); IMMATURE GRANULOCYTES 0.3 % (0-5); LYMPHOCYTES 21.7 % (15-50); MCH 27.9 pg (26.0-34.0); MCHC 31.1 g/dL (31.0-37.0); MCV 89.7 fL (80.0-100.0); MEAN PLATELET VOLUME 9.5 fL (7.4-10.4); MONOCYTES 10.4 % (2-11); NEUTROPHILS 61.7 % (40-80); PLATELET COUNT 194 10x3/uL (130-400); RBC 4.19 10x6/uL (4.20-6.10); RDW 14.8 % (11.5-14.5); WBC 6.1 10x3/uL (4.8-10.8)
[2017-06-10 05:01] LABS: CALC OSMOLALITY 282 mosm/kg (275-300); CALCIUM 7.9 mg/dL (8.5-10.1); CHLORIDE - SERUM 104 mmol/L (98-107); CREATININE - SERUM 0.9 mg/dL (0.6-1.3); GLUCOSE 95 mg/dL (74-106); POTASSIUM - SERUM 3.8 mmol/L (3.5-5.1); SODIUM 141 mmol/L (136-145); UREA NITROGEN 18 mg/dL (7-18); eGFR NON AFRICAN AMERICAN > 90 mL/min (90-120)
[2017-06-10 08:08] VITALS: BP 130/78
[2017-06-10 10:53] VITALS: BMI 29.9
[2017-06-10 12:53] VITALS: BP 152/94
[2017-06-10 12:57] VITALS: Ht 180.3 cm; Wt 97.7 kg
[2017-06-10 15:54] VITALS: BP 134/83
[2017-06-10 20:00] VITALS: BP 97/65
[2017-06-11] VITALS: BP 177/60
[2017-06-11 04:00] VITALS: BP 99/53
[2017-06-11 04:45] LABS: BASOPHILS 0.5 % (0-2); HEMOGLOBIN 11.9 g/dL (13.5-17.5); IMMATURE GRANULOCYTES 0.3 % (0-5); LYMPHOCYTES 21.7 % (15-50); MCH 28.1 pg (26.0-34.0); MCHC 31.3 g/dL (31.0-37.0); MCV 89.6 fL (80.0-100.0); MEAN PLATELET VOLUME 9.5 fL (7.4-10.4); MONOCYTES 10.7 % (2-11); NEUTROPHILS 61.8 % (40-80); PLATELET COUNT 185 10x3/uL (130-400); RBC 4.24 10x6/uL (4.20-6.10); RDW 14.6 % (11.5-14.5); WBC 5.8 10x3/uL (4.8-10.8)
[2017-06-11 04:56] LABS: CALC OSMOLALITY 275 mosm/kg (275-300); CARBON DIOXIDE 30.5 mmol/L (21.0-32.0); CHLORIDE - SERUM 102 mmol/L (98-107); CREATININE - SERUM 0.9 mg/dL (0.6-1.3); GLUCOSE 109 mg/dL (74-106); POTASSIUM - SERUM 3.7 mmol/L (3.5-5.1); SODIUM 137 mmol/L (136-145); UREA NITROGEN 15 mg/dL (7-18); eGFR NON AFRICAN AMERICAN > 90 mL/min (90-120)
[2017-06-11 07:55] VITALS: BP 119/79
[2017-06-11 12:30] VITALS: BP 98/68
[2017-06-11 15:46] VITALS: BP 112/72
[2017-06-11 20:00] VITALS: BP 122/71
[2017-06-12] VITALS: BP 115/59
[2017-06-12 04:00] VITALS: BP 123/69
[2017-06-12 04:25] LABS: BASOPHILS 0.6 % (0-2); EOSINOPHILS 6.1 % (0-7); HEMATOCRIT 39.7 % (42.0-54.0); HEMOGLOBIN 12.6 g/dL (13.5-17.5); IMMATURE GRANULOCYTES 0.2 % (0-5); LYMPHOCYTES 20.7 % (15-50); MCH 28.3 pg (26.0-34.0); MCHC 31.7 g/dL (31.0-37.0); MEAN PLATELET VOLUME 9.7 fL (7.4-10.4); MONOCYTES 9.6 % (2-11); NEUTROPHILS 62.8 % (40-80); PLATELET COUNT 186 10x3/uL (130-400); RBC 4.46 10x6/uL (4.20-6.10); RDW 14.7 % (11.5-14.5); WBC 5.4 10x3/uL (4.8-10.8)
[2017-06-12 04:27] LABS: CALC OSMOLALITY 274 mosm/kg (275-300); CALCIUM 8.2 mg/dL (8.5-10.1); CHLORIDE - SERUM 98 mmol/L (98-107); CREATININE - SERUM 0.8 mg/dL (0.6-1.3); GLUCOSE 107 mg/dL (74-106); POTASSIUM - SERUM 3.4 mmol/L (3.5-5.1); SODIUM 137 mmol/L (136-145); UREA NITROGEN 16 mg/dL (7-18); eGFR NON AFRICAN AMERICAN > 90 mL/min (90-120)
[2017-06-12 08:08] VITALS: BP 92/54
[2017-06-12 12:57] VITALS: BP 104/52
[2017-06-12 16:37] VITALS: BP 100/52
[2017-06-12 22:00] VITALS: BP 97/48
[2017-06-13 00:32] VITALS: BP 103/55
[2017-06-13 04:00] VITALS: BP 115/79
[2017-06-13 06:28] LABS: BASOPHILS 0.5 % (0-2); EOSINOPHILS 6.6 % (0-7); HEMATOCRIT 39.6 % (42.0-54.0); HEMOGLOBIN 12.7 g/dL (13.5-17.5); IMMATURE GRANULOCYTES 0.5 % (0-5); LYMPHOCYTES 25.4 % (15-50); MCH 28.5 pg (26.0-34.0); MCHC 32.1 g/dL (31.0-37.0); MCV 88.8 fL (80.0-100.0); MEAN PLATELET VOLUME 9.4 fL (7.4-10.4); MONOCYTES 11.2 % (2-11); NEUTROPHILS 55.8 % (40-80); PLATELET COUNT 179 10x3/uL (130-400); RBC 4.46 10x6/uL (4.20-6.10); RDW 14.9 % (11.5-14.5); WBC 5.9 10x3/uL (4.8-10.8)
[2017-06-13 06:39] LABS: CALC OSMOLALITY 270 mosm/kg (275-300); CALCIUM 8.5 mg/dL (8.5-10.1); CARBON DIOXIDE 32.6 mmol/L (21.0-32.0); CHLORIDE - SERUM 94 mmol/L (98-107); GLUCOSE 100 mg/dL (74-106); POTASSIUM - SERUM 3.4 mmol/L (3.5-5.1); SODIUM 134 mmol/L (136-145); eGFR NON AFRICAN AMERICAN 86 mL/min (90-120)
[2017-06-13 06:42] LABS: UREA NITROGEN 21 mg/dL (7-18)
[2017-06-13 08:03] VITALS: BP 100/62
[2017-06-13 12:16] VITALS: BP 125/56
[2017-06-13 16:14] VITALS: BP 106/65
[2017-06-13 20:00] VITALS: BP 98/48
[2017-06-14] VITALS: BP 110/60
[2017-06-14 04:00] VITALS: BP 108/58
[2017-06-14 04:12] LABS: BASOPHILS 0.5 % (0-2); EOSINOPHILS 9.3 % (0-7); HEMATOCRIT 38.9 % (42.0-54.0); HEMOGLOBIN 12.5 g/dL (13.5-17.5); IMMATURE GRANULOCYTES 0.4 % (0-5); LYMPHOCYTES 24.2 % (15-50); MCH 28.3 pg (26.0-34.0); MCHC 32.1 g/dL (31.0-37.0); MEAN PLATELET VOLUME 9.5 fL (7.4-10.4); MONOCYTES 11.5 % (2-11); NEUTROPHILS 54.1 % (40-80); PLATELET COUNT 186 10x3/uL (130-400); RBC 4.42 10x6/uL (4.20-6.10); RDW 14.9 % (11.5-14.5); WBC 5.5 10x3/uL (4.8-10.8)
[2017-06-14 04:31] LABS: CALC OSMOLALITY 276 mosm/kg (275-300); CALCIUM 8.5 mg/dL (8.5-10.1); CARBON DIOXIDE 32.7 mmol/L (21.0-32.0); CHLORIDE - SERUM 98 mmol/L (98-107); CREATININE - SERUM 1.1 mg/dL (0.6-1.3); GLUCOSE 116 mg/dL (74-106); POTASSIUM - SERUM 3.5 mmol/L (3.5-5.1); SODIUM 137 mmol/L (136-145); UREA NITROGEN 17 mg/dL (7-18); eGFR NON AFRICAN AMERICAN 77 mL/min (90-120)
[2017-06-14 08:06] VITALS: BP 133/78
[2017-06-14 12:12] VITALS: BP 115/65
[2017-06-14 15:51] LABS: INR 0.99 (0.85-1.17); PROTIME 12.7 SECONDS (11.6-15.0)
[2017-06-14 16:27] VITALS: BP 131/78
[2017-06-14 20:00] VITALS: BP 103/57
[2017-06-15] VITALS: BP 116/68
[2017-06-15 05:00] LABS: BASOPHILS 0.4 % (0-2); EOSINOPHILS 7.9 % (0-7); HEMATOCRIT 38.7 % (42.0-54.0); HEMOGLOBIN 12.5 g/dL (13.5-17.5); IMMATURE GRANULOCYTES 0.2 % (0-5); LYMPHOCYTES 23.4 % (15-50); MCH 28.5 pg (26.0-34.0); MCHC 32.3 g/dL (31.0-37.0); MCV 88.2 fL (80.0-100.0); MEAN PLATELET VOLUME 9.6 fL (7.4-10.4); MONOCYTES 14.5 % (2-11); NEUTROPHILS 53.6 % (40-80); PLATELET COUNT 188 10x3/uL (130-400); RBC 4.39 10x6/uL (4.20-6.10)
[2017-06-15 05:19] LABS: CALC OSMOLALITY 270 mosm/kg (275-300); CALCIUM 8.6 mg/dL (8.5-10.1); CHLORIDE - SERUM 98 mmol/L (98-107); GLUCOSE 100 mg/dL (74-106); POTASSIUM - SERUM 3.3 mmol/L (3.5-5.1); SODIUM 135 mmol/L (136-145); UREA NITROGEN 16 mg/dL (7-18)
[2017-06-15 05:20] LABS: CREATININE - SERUM 0.8 mg/dL (0.6-1.3); eGFR NON AFRICAN AMERICAN > 90 mL/min (90-120)
[2017-06-15 06:00] VITALS: BP 114/77
[2017-06-15 08:45] VITALS: BP 100/64
[2017-06-15 13:11] VITALS: BP 123/74
[2017-06-15 16:44] VITALS: BP 103/74
[2017-06-15 20:00] VITALS: BP 115/61
[2017-06-16 04:00] VITALS: BP 106/69
[2017-06-16 06:06] LABS: INR 1.03 (0.85-1.17); PROTIME 13.1 SECONDS (11.6-15.0)
[2017-06-16 07:44] LABS: POTASSIUM - SERUM 3.2 mmol/L (3.5-5.1)
[2017-06-16 08:55] VITALS: BP 120/75
[2017-06-16 09:47] LABS: ALBUMIN 3.3 g/dL (3.4-5.0); ALKALINE PHOSPHATASE 518 U/L (46-116); ALT (SGPT) 478 U/L (10-68); CALC OSMOLALITY 275 mosm/kg (275-300); CALCIUM 8.8 mg/dL (8.5-10.1); CARBON DIOXIDE 31.3 mmol/L (21.0-32.0); CHLORIDE - SERUM 98 mmol/L (98-107); CREATININE - SERUM 0.8 mg/dL (0.6-1.3); GLUCOSE 90 mg/dL (74-106); PROTEIN - SERUM 7.6 g/dL (6.4-8.2); SODIUM 138 mmol/L (136-145); UREA NITROGEN 13 mg/dL (7-18); eGFR NON AFRICAN AMERICAN > 90 mL/min (90-120)
[2017-06-16 09:54] LABS: BASOPHILS 0.5 % (0-2); EOSINOPHILS 8.9 % (0-7); HEMATOCRIT 39.9 % (42.0-54.0); HEMOGLOBIN 12.7 g/dL (13.5-17.5); IMMATURE GRANULOCYTES 0.4 % (0-5); LYMPHOCYTES 23.4 % (15-50); MCH 28.5 pg (26.0-34.0); MCHC 31.8 g/dL (31.0-37.0); MCV 89.5 fL (80.0-100.0); MEAN PLATELET VOLUME 10.1 fL (7.4-10.4); MONOCYTES 13.2 % (2-11); NEUTROPHILS 53.6 % (40-80); PLATELET COUNT 210 10x3/uL (130-400); RBC 4.46 10x6/uL (4.20-6.10); RDW 15.1 % (11.5-14.5); WBC 5.5 10x3/uL (4.8-10.8)
[2017-06-16 13:05] VITALS: BP 103/63
[2017-06-16 16:00] VITALS: BP 136/72
[2017-06-16 20:00] VITALS: BP 116/71
[2017-06-17] VITALS: BP 110/61
[2017-06-17 04:00] VITALS: BP 112/62
[2017-06-17 07:00] LABS: BASOPHILS 0.7 % (0-2); EOSINOPHILS 6.5 % (0-7); HEMATOCRIT 38.7 % (42.0-54.0); HEMOGLOBIN 12.3 g/dL (13.5-17.5); IMMATURE GRANULOCYTES 0.3 % (0-5); LYMPHOCYTES 21.1 % (15-50); MCH 28.1 pg (26.0-34.0); MCHC 31.8 g/dL (31.0-37.0); MCV 88.4 fL (80.0-100.0); MEAN PLATELET VOLUME 9.8 fL (7.4-10.4); MONOCYTES 12.2 % (2-11); NEUTROPHILS 59.2 % (40-80); PLATELET COUNT 206 10x3/uL (130-400); RBC 4.38 10x6/uL (4.20-6.10); WBC 5.9 10x3/uL (4.8-10.8)
[2017-06-17 07:35] LABS: ALBUMIN 3.1 g/dL (3.4-5.0); ALKALINE PHOSPHATASE 517 U/L (46-116); ALT (SGPT) 376 U/L (10-68); BILIRUBIN - TOTAL 0.64 mg/dL (0.2-1.3); CALC OSMOLALITY 272 mosm/kg (275-300); CALCIUM 8.6 mg/dL (8.5-10.1); CARBON DIOXIDE 31.4 mmol/L (21.0-32.0); CHLORIDE - SERUM 98 mmol/L (98-107); CREATININE - SERUM 0.7 mg/dL (0.6-1.3); GLUCOSE 112 mg/dL (74-106); POTASSIUM - SERUM 3.2 mmol/L (3.5-5.1); PROTEIN - SERUM 7.4 g/dL (6.4-8.2); SODIUM 136 mmol/L (136-145); UREA NITROGEN 12 mg/dL (7-18); eGFR NON AFRICAN AMERICAN > 90 mL/min (90-120)
[2017-06-17 08:49] VITALS: BP 134/85
[2017-06-17 11:22] LABS: INR 1.01 (0.85-1.17); PROTIME 12.9 SECONDS (11.6-15.0)
[2017-06-17 12:56] VITALS: BP 122/62
[2017-06-17 16:23] VITALS: BP 106/63
[2017-06-17 20:00] VITALS: BP 115/71
[2017-06-18] VITALS: BP 107/77
[2017-06-18 04:00] VITALS: BP 136/87
[2017-06-18 05:01] LABS: BASOPHILS 0.6 % (0-2); EOSINOPHILS 7.2 % (0-7); HEMATOCRIT 38.9 % (42.0-54.0); HEMOGLOBIN 12.6 g/dL (13.5-17.5); IMMATURE GRANULOCYTES 0.3 % (0-5); MCH 28.7 pg (26.0-34.0); MCHC 32.4 g/dL (31.0-37.0); MCV 88.6 fL (80.0-100.0); MEAN PLATELET VOLUME 9.6 fL (7.4-10.4); MONOCYTES 10.3 % (2-11); NEUTROPHILS 55.6 % (40-80); PLATELET COUNT 217 10x3/uL (130-400); RBC 4.39 10x6/uL (4.20-6.10); WBC 6.2 10x3/uL (4.8-10.8)
[2017-06-18 05:21] LABS: ALBUMIN 3.1 g/dL (3.4-5.0); ALKALINE PHOSPHATASE 463 U/L (46-116); ALT (SGPT) 312 U/L (10-68); CALCIUM 8.6 mg/dL (8.5-10.1); CARBON DIOXIDE 30.4 mmol/L (21.0-32.0); CHLORIDE - SERUM 100 mmol/L (98-107); CREATININE - SERUM 0.8 mg/dL (0.6-1.3); GLUCOSE 93 mg/dL (74-106); INR 1.13 (0.85-1.17); POTASSIUM - SERUM 3.5 mmol/L (3.5-5.1); PROTEIN - SERUM 7.4 g/dL (6.4-8.2); PROTIME 14.1 SECONDS (11.6-15.0); SODIUM 137 mmol/L (136-145); eGFR NON AFRICAN AMERICAN > 90 mL/min (90-120)
[2017-06-18 05:28] LABS: CALC OSMOLALITY 274 mosm/kg (275-300); UREA NITROGEN 16 mg/dL (7-18)
[2017-06-18 07:58] VITALS: BP 130/78
[2017-06-18] MEDS ORDERED: LOVENOX INJ100 MG/ML SC (11:39)
[2017-06-18] MEDS ORDERED: COUMADIN5 MG PO (11:39)
[2017-06-18] MEDS ORDERED: LASIX40 MG PO (11:40)
[2017-06-18 12:17] VITALS: BP 105/65
[2017-06-18 20:00] VITALS: BP 111/66
[2017-06-18 23:52] VITALS: BP 107/66
[2017-06-19 04:00] VITALS: BP 111/59
[2017-06-19 05:25] LABS: BASOPHILS 0.4 % (0-2); EOSINOPHILS 7.1 % (0-7); HEMATOCRIT 40.1 % (42.0-54.0); IMMATURE GRANULOCYTES 0.3 % (0-5); LYMPHOCYTES 26.2 % (15-50); MCH 28.6 pg (26.0-34.0); MCHC 32.4 g/dL (31.0-37.0); MCV 88.1 fL (80.0-100.0); MEAN PLATELET VOLUME 9.9 fL (7.4-10.4); MONOCYTES 10.8 % (2-11); NEUTROPHILS 55.2 % (40-80); PLATELET COUNT 254 10x3/uL (130-400); RBC 4.55 10x6/uL (4.20-6.10); RDW 15.2 % (11.5-14.5); WBC 6.9 10x3/uL (4.8-10.8)
[2017-06-19 05:31] LABS: INR 1.37 (0.85-1.17); PROTIME 16.4 SECONDS (11.6-15.0)
[2017-06-19 05:39] LABS: ALBUMIN 3.2 g/dL (3.4-5.0); ALKALINE PHOSPHATASE 451 U/L (46-116); ALT (SGPT) 258 U/L (10-68); BILIRUBIN - TOTAL 0.36 mg/dL (0.2-1.3); CALC OSMOLALITY 272 mosm/kg (275-300); CALCIUM 8.5 mg/dL (8.5-10.1); CARBON DIOXIDE 30.5 mmol/L (21.0-32.0); CHLORIDE - SERUM 98 mmol/L (98-107); CREATININE - SERUM 0.8 mg/dL (0.6-1.3); GLUCOSE 104 mg/dL (74-106); POTASSIUM - SERUM 3.2 mmol/L (3.5-5.1); PROTEIN - SERUM 7.7 g/dL (6.4-8.2); SODIUM 136 mmol/L (136-145); UREA NITROGEN 15 mg/dL (7-18); eGFR NON AFRICAN AMERICAN > 90 mL/min (90-120)
[2017-06-19 08:04] VITALS: BP 113/87
[2017-06-19 12:14] VITALS: BP 121/74
[2017-06-19 16:16] VITALS: BP 105/63
[2017-06-19 20:00] VITALS: BP 110/53
[2017-06-19 23:30] VITALS: BP 87/55
[2017-06-20 04:00] VITALS: BP 101/58
[2017-06-20 04:54] LABS: BASOPHILS 0.4 % (0-2); EOSINOPHILS 7.8 % (0-7); HEMATOCRIT 38.8 % (42.0-54.0); HEMOGLOBIN 12.4 g/dL (13.5-17.5); IMMATURE GRANULOCYTES 0.4 % (0-5); LYMPHOCYTES 27.4 % (15-50); MCH 28.3 pg (26.0-34.0); MCV 88.6 fL (80.0-100.0); MEAN PLATELET VOLUME 9.6 fL (7.4-10.4); MONOCYTES 11.3 % (2-11); NEUTROPHILS 52.7 % (40-80); PLATELET COUNT 244 10x3/uL (130-400); RBC 4.38 10x6/uL (4.20-6.10); WBC 7.2 10x3/uL (4.8-10.8)
[2017-06-20 05:18] LABS: INR 1.49 (0.85-1.17); PROTIME 17.6 SECONDS (11.6-15.0)
[2017-06-20 05:23] LABS: ALKALINE PHOSPHATASE 396 U/L (46-116); ALT (SGPT) 194 U/L (10-68); BILIRUBIN - TOTAL 0.28 mg/dL (0.2-1.3); CALC OSMOLALITY 275 mosm/kg (275-300); CALCIUM 8.3 mg/dL (8.5-10.1); CARBON DIOXIDE 31.6 mmol/L (21.0-32.0); CHLORIDE - SERUM 99 mmol/L (98-107); CREATININE - SERUM 0.8 mg/dL (0.6-1.3); GLUCOSE 94 mg/dL (74-106); POTASSIUM - SERUM 3.4 mmol/L (3.5-5.1); PROTEIN - SERUM 7.3 g/dL (6.4-8.2); SODIUM 137 mmol/L (136-145); UREA NITROGEN 17 mg/dL (7-18); eGFR NON AFRICAN AMERICAN > 90 mL/min (90-120)
[2017-06-20 10:56] VITALS: BP 103/63
[2017-06-20 15:03] VITALS: BP 108/60
[2017-06-20 16:52] VITALS: BP 113/70
[2017-06-20 20:00] VITALS: BP 138/75
[2017-06-21] VITALS: BP 116/72
[2017-06-21 04:00] VITALS: BP 138/81
[2017-06-21 06:16] LABS: BASOPHILS 0.6 % (0-2); HEMATOCRIT 41.3 % (42.0-54.0); HEMOGLOBIN 13.1 g/dL (13.5-17.5); IMMATURE GRANULOCYTES 0.3 % (0-5); LYMPHOCYTES 23.2 % (15-50); MCH 28.2 pg (26.0-34.0); MCHC 31.7 g/dL (31.0-37.0); MEAN PLATELET VOLUME 9.5 fL (7.4-10.4); MONOCYTES 9.1 % (2-11); NEUTROPHILS 58.8 % (40-80); PLATELET COUNT 256 10x3/uL (130-400); RBC 4.64 10x6/uL (4.20-6.10); RDW 14.9 % (11.5-14.5); WBC 6.3 10x3/uL (4.8-10.8)
[2017-06-21 06:22] LABS: INR 1.59 (0.85-1.17); PROTIME 18.4 SECONDS (11.6-15.0)
[2017-06-21 06:59] LABS: ALBUMIN 3.2 g/dL (3.4-5.0); ALKALINE PHOSPHATASE 465 U/L (46-116); ALT (SGPT) 166 U/L (10-68); CALC OSMOLALITY 279 mosm/kg (275-300); CALCIUM 8.6 mg/dL (8.5-10.1); CARBON DIOXIDE 32.5 mmol/L (21.0-32.0); CHLORIDE - SERUM 99 mmol/L (98-107); CREATININE - SERUM 0.8 mg/dL (0.6-1.3); GLUCOSE 135 mg/dL (74-106); POTASSIUM - SERUM 3.3 mmol/L (3.5-5.1); PROTEIN - SERUM 7.7 g/dL (6.4-8.2); SODIUM 138 mmol/L (136-145); UREA NITROGEN 18 mg/dL (7-18); eGFR NON AFRICAN AMERICAN > 90 mL/min (90-120)
[2017-06-21 08:07] VITALS: BP 120/79
[2017-06-21 11:57] VITALS: BP 116/70
[2017-06-21 15:29] VITALS: BP 114/64
[2017-06-21 20:55] VITALS: BP 120/69
[2017-06-22 05:40] VITALS: BP 99/60
[2017-06-22 06:00] LABS: BASOPHILS 0.3 % (0-2); EOSINOPHILS 5.7 % (0-7); HEMATOCRIT 39.7 % (42.0-54.0); HEMOGLOBIN 12.8 g/dL (13.5-17.5); IMMATURE GRANULOCYTES 0.2 % (0-5); MCH 28.4 pg (26.0-34.0); MCHC 32.2 g/dL (31.0-37.0); MCV 88.2 fL (80.0-100.0); MEAN PLATELET VOLUME 9.5 fL (7.4-10.4); MONOCYTES 8.9 % (2-11); NEUTROPHILS 66.9 % (40-80); PLATELET COUNT 272 10x3/uL (130-400); RDW 14.7 % (11.5-14.5); WBC 6.7 10x3/uL (4.8-10.8)
[2017-06-22 06:18] LABS: ALBUMIN 3.1 g/dL (3.4-5.0); ALKALINE PHOSPHATASE 552 U/L (46-116); ALT (SGPT) 197 U/L (10-68); BILIRUBIN - TOTAL 0.29 mg/dL (0.2-1.3); CALC OSMOLALITY 283 mosm/kg (275-300); CALCIUM 8.3 mg/dL (8.5-10.1); CARBON DIOXIDE 32.3 mmol/L (21.0-32.0); CHLORIDE - SERUM 103 mmol/L (98-107); CREATININE - SERUM 0.8 mg/dL (0.6-1.3); GLUCOSE 124 mg/dL (74-106); POTASSIUM - SERUM 3.8 mmol/L (3.5-5.1); PROTEIN - SERUM 7.5 g/dL (6.4-8.2); SODIUM 141 mmol/L (136-145); UREA NITROGEN 19 mg/dL (7-18); eGFR NON AFRICAN AMERICAN > 90 mL/min (90-120)
[2017-06-22 06:22] LABS: INR 2.14 (0.85-1.17); PROTIME 23.3 SECONDS (11.6-15.0)
[2017-06-22 09:39] VITALS: BP 135/68
== END 2017-06-22 11:16 | disposition home or self-care (01) | DRG 300 ==
LOC: D.ER 08:43 → D.EDHOLD 10:19 → D.MS 10:19
PROVIDERS: Emergency Medicine; Family Medicine Adult Medicine; Internal Medicine Nephrology
DX: I82.411 Acute embolism and thrombosis of right femoral vein (principal); G82.20 Paraplegia, unspecified; L03.115 Cellulitis of right lower limb; N39.0 Urinary tract infection, site not specified; G72.81 Critical illness myopathy; I82.441 Acute embolism and thrombosis of right tibial vein; I82.431 Acute embolism and thrombosis of right popliteal vein; K21.9 Gastro-esophageal reflux disease without esophagitis; I10 Essential (primary) hypertension; S91.301A Unspecified open wound, right foot, initial encounter; R21 Rash and other nonspecific skin eruption; Z91.19 Patient's noncompliance with other medical treatment and regimen

== ENCOUNTER 2017-10-15 15:52 | Emergency (ER) | payer MEDICARE ==
[~2017-10-15] VITALS: Ht 180.3 cm; Wt 81.8 kg
[~2017-10-15 15:52] MED LIST changes: +COUMADIN5 MG PO; +LASIX40 MG PO; +LOVENOX INJ100 MG/ML SC
[2017-10-15 16:05] VITALS: Ht 180.3 cm; Wt 81.8 kg
[2017-10-15 16:34] LABS: APPEARANCE CLEAR (CLEAR); BILIRUBIN NEGATIVE (NEGATIVE); COLOR YELLOW (YELLOW); GLUCOSE NEGATIVE (NEGATIVE); KETONE NEGATIVE (NEGATIVE); NITRITE NEGATIVE (NEGATIVE); PROTEIN NEGATIVE (NEGATIVE); UROBILINOGEN NORMAL (NORMAL)
[2017-10-15 16:37] LABS: BACTERIA MODERATE /hpf (NONE SEEN); EPITHELIAL CELLS 0-5 /hpf (0-5); MUCUS <1+ /lpf (NONE SEEN)
[2017-10-15] MEDS ORDERED: CIPRO500 MG PO (17:42)
[2017-10-15 17:48] LABS: BASOPHILS 0.3 % (0-2); EOSINOPHILS 2.9 % (0-7); HEMATOCRIT 43.2 % (42.0-54.0); HEMOGLOBIN 14.5 g/dL (13.5-17.5); IMMATURE GRANULOCYTES 0.3 % (0-5); LYMPHOCYTES 15.5 % (15-50); MCH 28.8 pg (26.0-34.0); MCHC 33.6 g/dL (31.0-37.0); MCV 85.7 fL (80.0-100.0); MEAN PLATELET VOLUME 9.2 fL (7.4-10.4); MONOCYTES 8.1 % (2-11); NEUTROPHILS 72.9 % (40-80); RBC 5.04 10x6/uL (4.20-6.10); RDW 15.2 % (11.5-14.5)
[2017-10-15 17:51] LABS: PLATELET COUNT 217 10x3/uL (130-400)
[2017-10-15 17:56] LABS: INR 0.96 (0.85-1.17); PROTIME 12.4 SECONDS (11.6-15.0)
[2017-10-15 17:58] LABS: D-DIMER-QUANTITATIVE 0.74 ug/mLFEU (0.20-0.54)
[2017-10-15 18:01] LABS: ALBUMIN 3.4 g/dL (3.4-5.0); ALKALINE PHOSPHATASE 176 U/L (46-116); ALT (SGPT) 22 U/L (10-68); CALC OSMOLALITY 275 mosm/kg (275-300); CALCIUM 8.3 mg/dL (8.5-10.1); CARBON DIOXIDE 27.9 mmol/L (21.0-32.0); CHLORIDE - SERUM 102 mmol/L (98-107); CREATININE - SERUM 0.8 mg/dL (0.6-1.3); GLUCOSE 85 mg/dL (74-106); POTASSIUM - SERUM 3.5 mmol/L (3.5-5.1); PROTEIN - SERUM 7.8 g/dL (6.4-8.2); SODIUM 140 mmol/L (136-145); UREA NITROGEN 8 mg/dL (7-18); eGFR NON AFRICAN AMERICAN > 90 mL/min (90-120)
[2017-10-15 18:21] LABS: APTT 20.4 SECONDS (22.8-39.4)
[2017-10-15 21:48] VITALS: BP 169/99
== END 2017-10-15 21:36 | disposition home or self-care (01) ==
LOC: D.ER 15:52
PROVIDERS: Emergency Medicine
DX: N39.0 Urinary tract infection, site not specified (principal); Z86.718 Personal history of other venous thrombosis and embolism; R20.0 Anesthesia of skin; Z86.73 Personal history of transient ischemic attack (TIA), and cerebral infarction without residual deficits; G82.20 Paraplegia, unspecified

== ENCOUNTER 2017-11-13 20:49 | Inpatient (IN) | payer MEDICARE ==
[~2017-11-13] VITALS: Ht 180.3 cm; Wt 97.5 kg
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
[~2017-11-13 20:49] MED LIST changes: +CIPRO500 MG PO
[2017-11-13 22:57] LABS: BASOPHILS 0.2 % (0-2); EOSINOPHILS 1.7 % (0-7); HEMATOCRIT 41.6 % (42.0-54.0); HEMOGLOBIN 13.9 g/dL (13.5-17.5); IMMATURE GRANULOCYTES 0.4 % (0-5); LYMPHOCYTES 7.8 % (15-50); MCH 28.5 pg (26.0-34.0); MCHC 33.4 g/dL (31.0-37.0); MCV 85.2 fL (80.0-100.0); MONOCYTES 10.1 % (2-11); NEUTROPHILS 79.8 % (40-80); RBC 4.88 10x6/uL (4.20-6.10); RDW 15.7 % (11.5-14.5); WBC 14.1 10x3/uL (4.8-10.8)
[2017-11-13 22:59] LABS: PLATELET COUNT 356 10x3/uL (130-400)
[2017-11-13 23:21] LABS: ALBUMIN 3.5 g/dL (3.4-5.0); ALKALINE PHOSPHATASE 369 U/L (46-116); ALT (SGPT) 63 U/L (10-68); BILIRUBIN - TOTAL 0.82 mg/dL (0.2-1.3); CALC OSMOLALITY 271 mosm/kg (275-300); CALCIUM 8.8 mg/dL (8.5-10.1); CARBON DIOXIDE 29.1 mmol/L (21.0-32.0); CHLORIDE - SERUM 102 mmol/L (98-107); CREATININE - SERUM 0.8 mg/dL (0.6-1.3); GLUCOSE 123 mg/dL (74-106); POTASSIUM - SERUM 3.2 mmol/L (3.5-5.1); PROTEIN - SERUM 8.7 g/dL (6.4-8.2); SODIUM 136 mmol/L (136-145); UREA NITROGEN 10 mg/dL (7-18); eGFR NON AFRICAN AMERICAN > 90 mL/min (90-120)
[2017-11-14] VITALS (8 sets, daily range): BP systolic 129–150; BP diastolic 75–94
[2017-11-14 00:47] LABS: C-REACTIVE PROTEIN 7.7 mg/dL (0.0-0.9)
[2017-11-14 00:52] LABS: INR 1.19 (0.85-1.17); PROTIME 14.7 SECONDS (11.6-15.0)
[2017-11-14 02:52] LABS: UDS - AMPHET NEGATIVE QUAL (NEGATIVE); UDS - BARB NEGATIVE QUAL (NEGATIVE); UDS - BENZO POSITIVE QUAL (NEGATIVE); UDS - COCAINE NEGATIVE QUAL (NEGATIVE); UDS - OPIATE POSITIVE QUAL (NEGATIVE); UDS - PCP NEGATIVE QUAL (NEGATIVE); UDS - THC POSITIVE QUAL (NEGATIVE)
[2017-11-15 01:11] VITALS: BP 129/82
[2017-11-15 04:30] VITALS: BP 134/84
[2017-11-15 09:37] VITALS: BP 134/81
[2017-11-15 14:35] VITALS: BP 131/66
[2017-11-15 16:50] VITALS: BP 129/66
[2017-11-15 20:35] VITALS: BP 116/74
[2017-11-16 01:31] VITALS: BP 111/75
[2017-11-16 04:18] VITALS: BP 118/76
[2017-11-16 06:56] LABS: CALC OSMOLALITY 278 mosm/kg (275-300); CALCIUM 8.3 mg/dL (8.5-10.1); CARBON DIOXIDE 28.5 mmol/L (21.0-32.0); CHLORIDE - SERUM 104 mmol/L (98-107); CREATININE - SERUM 0.7 mg/dL (0.6-1.3); GLUCOSE 80 mg/dL (74-106); POTASSIUM - SERUM 3.6 mmol/L (3.5-5.1); SODIUM 141 mmol/L (136-145); UREA NITROGEN 11 mg/dL (7-18); eGFR NON AFRICAN AMERICAN > 90 mL/min (90-120)
[2017-11-16 07:09] LABS: BASOPHILS 0.9 % (0-2); EOSINOPHILS 5.5 % (0-7); IMMATURE GRANULOCYTES 0.3 % (0-5); LYMPHOCYTES 21.9 % (15-50); MCHC 32.4 g/dL (31.0-37.0); MCV 86.4 fL (80.0-100.0); MEAN PLATELET VOLUME 9.4 fL (7.4-10.4); MONOCYTES 10.7 % (2-11); NEUTROPHILS 60.7 % (40-80); PLATELET COUNT 324 10x3/uL (130-400); RBC 4.28 10x6/uL (4.20-6.10); RDW 15.6 % (11.5-14.5); WBC 5.8 10x3/uL (4.8-10.8)
[2017-11-16 08:43] VITALS: BP 134/71
[2017-11-16 13:04] VITALS: BP 118/76
[2017-11-16 14:04] VITALS: Ht 180.3 cm; Wt 97.5 kg
[2017-11-16 16:24] VITALS: BP 132/79
[2017-11-16 21:16] VITALS: BP 156/92
[2017-11-17 04:27] VITALS: BP 93/62
[2017-11-17 21:06] VITALS: BP 129/83
[2017-11-18 04:56] VITALS: BP 124/69
[2017-11-18] MEDS ORDERED: VIBRAMYCIN 100100 MG PO (08:43)
[2017-11-18 09:00] VITALS: BP 130/72
[2017-11-18] MEDS ORDERED: ELIQUIS5 MG PO (10:42)
[2017-11-18] MEDS ORDERED: ACETAMINOPHEN500 M1 PO (10:44)
[2017-11-18] MEDS ORDERED: XANAX2 MG PO (10:45)
[2017-11-18] MEDS ORDERED: DULCOLAX10 MG/SUPP RC (10:46)
[2017-11-18] MEDS ORDERED: MELATONIN 3 MG1 TAB PO (10:47)
[2017-11-18 11:45] VITALS: BP 103/62
== END 2017-11-18 16:39 | disposition home or self-care (01) | DRG 603 ==
LOC: D.ER 20:49 → D.EDHOLD 11-14 00:43 → D.MS 11-14 00:43
PROVIDERS: Emergency Medicine; Family Medicine
DX: L03.116 Cellulitis of left lower limb (principal); G82.20 Paraplegia, unspecified; I82.411 Acute embolism and thrombosis of right femoral vein; I82.441 Acute embolism and thrombosis of right tibial vein; G72.81 Critical illness myopathy; L03.311 Cellulitis of abdominal wall; L03.115 Cellulitis of right lower limb; X58.XXXA Exposure to other specified factors, initial encounter; S30.1XXA Contusion of abdominal wall, initial encounter; G89.29 Other chronic pain; F41.9 Anxiety disorder, unspecified; E87.6 Hypokalemia

== ENCOUNTER 2017-12-24 18:27 | Inpatient (IN) | payer MEDICARE ==
[~2017-12-24] VITALS: Ht 180.3 cm
[~2017-12-24 18:27] MED LIST changes: +ACETAMINOPHEN500 M1 PO; +DULCOLAX10 MG/SUPP RC; +ELIQUIS5 MG PO; +MELATONIN 3 MG1 TAB PO
[2017-12-24 19:16] LABS: BASOPHILS 0.3 % (0-2); EOSINOPHILS 2.6 % (0-7); HEMATOCRIT 42.1 % (42.0-54.0); HEMOGLOBIN 13.5 g/dL (13.5-17.5); IMMATURE GRANULOCYTES 0.3 % (0-5); LYMPHOCYTES 10.6 % (15-50); MCHC 32.1 g/dL (31.0-37.0); MCV 87.2 fL (80.0-100.0); MEAN PLATELET VOLUME 9.3 fL (7.4-10.4); MONOCYTES 8.4 % (2-11); NEUTROPHILS 77.8 % (40-80); RBC 4.83 10x6/uL (4.20-6.10)
[2017-12-24 19:22] LABS: PLATELET COUNT 238 10x3/uL (130-400)
[2017-12-24 19:26] LABS: APTT 24.3 SECONDS (22.8-39.4); INR 1.03 (0.85-1.17); PROTIME 13.1 SECONDS (11.6-15.0)
[2017-12-24 19:38] LABS: ALBUMIN 3.4 g/dL (3.4-5.0); ALKALINE PHOSPHATASE 174 U/L (46-116); ALT (SGPT) 16 U/L (10-68); BILIRUBIN - TOTAL 0.59 mg/dL (0.2-1.3); CALC OSMOLALITY 272 mosm/kg (275-300); CALCIUM 8.8 mg/dL (8.5-10.1); CARBON DIOXIDE 27.4 mmol/L (21.0-32.0); CHLORIDE - SERUM 103 mmol/L (98-107); CREATININE - SERUM 0.9 mg/dL (0.6-1.3); GLUCOSE 83 mg/dL (74-106); POTASSIUM - SERUM 3.7 mmol/L (3.5-5.1); SODIUM 138 mmol/L (136-145); UREA NITROGEN 8 mg/dL (7-18); eGFR NON AFRICAN AMERICAN > 90 mL/min (90-120)
[2017-12-24 20:00] VITALS: BP 127/66
[2017-12-24 21:00] VITALS: BP 130/83
[2017-12-24 22:00] VITALS: BP 139/90
[2017-12-24] MEDS ORDERED: HYSINGLA ER30 MG PO (23:27)
[2017-12-25] VITALS: BP 121/59
[2017-12-25 01:00] VITALS: BP 121/59
[2017-12-25 05:22] VITALS: BP 115/61
[2017-12-25 05:46] LABS: CALC OSMOLALITY 272 mosm/kg (275-300); CALCIUM 8.1 mg/dL (8.5-10.1); CARBON DIOXIDE 28.1 mmol/L (21.0-32.0); CHLORIDE - SERUM 103 mmol/L (98-107); CREATININE - SERUM 0.8 mg/dL (0.6-1.3); GLUCOSE 89 mg/dL (74-106); POTASSIUM - SERUM 3.8 mmol/L (3.5-5.1); SODIUM 138 mmol/L (136-145); UREA NITROGEN 7 mg/dL (7-18); eGFR NON AFRICAN AMERICAN > 90 mL/min (90-120)
[2017-12-25 06:26] LABS: BASOPHILS 0.5 % (0-2); EOSINOPHILS 5.7 % (0-7); HEMATOCRIT 37.3 % (42.0-54.0); HEMOGLOBIN 11.9 g/dL (13.5-17.5); IMMATURE GRANULOCYTES 0.3 % (0-5); LYMPHOCYTES 14.5 % (15-50); MCH 27.7 pg (26.0-34.0); MCHC 31.9 g/dL (31.0-37.0); MCV 86.9 fL (80.0-100.0); MEAN PLATELET VOLUME 9.5 fL (7.4-10.4); MONOCYTES 10.3 % (2-11); NEUTROPHILS 68.7 % (40-80); PLATELET COUNT 238 10x3/uL (130-400); RBC 4.29 10x6/uL (4.20-6.10); RDW 15.3 % (11.5-14.5)
[2017-12-25 06:30] LABS: WBC 8.8 10x3/uL (4.8-10.8)
[2017-12-25 08:30] VITALS: BP 139/86
[2017-12-25 11:51] VITALS: BP 184/97
[2017-12-25 16:06] VITALS: BP 118/71
[2017-12-26 04:59] VITALS: BP 127/79
[2017-12-26 06:55] LABS: BASOPHILS 0.4 % (0-2); EOSINOPHILS 7.5 % (0-7); HEMATOCRIT 37.4 % (42.0-54.0); HEMOGLOBIN 11.8 g/dL (13.5-17.5); IMMATURE GRANULOCYTES 0.2 % (0-5); LYMPHOCYTES 15.6 % (15-50); MCH 27.8 pg (26.0-34.0); MCHC 31.6 g/dL (31.0-37.0); MEAN PLATELET VOLUME 9.2 fL (7.4-10.4); MONOCYTES 15.6 % (2-11); NEUTROPHILS 60.7 % (40-80); PLATELET COUNT 198 10x3/uL (130-400); RBC 4.25 10x6/uL (4.20-6.10); RDW 15.4 % (11.5-14.5); WBC 5.2 10x3/uL (4.8-10.8)
[2017-12-26 07:23] LABS: ALBUMIN 2.8 g/dL (3.4-5.0); ALKALINE PHOSPHATASE 135 U/L (46-116); ALT (SGPT) 15 U/L (10-68); BILIRUBIN - TOTAL 0.41 mg/dL (0.2-1.3); CALC OSMOLALITY 271 mosm/kg (275-300); CALCIUM 8.2 mg/dL (8.5-10.1); CARBON DIOXIDE 29.7 mmol/L (21.0-32.0); CHLORIDE - SERUM 102 mmol/L (98-107); CREATININE - SERUM 0.8 mg/dL (0.6-1.3); GLUCOSE 92 mg/dL (74-106); POTASSIUM - SERUM 3.7 mmol/L (3.5-5.1); PROTEIN - SERUM 6.8 g/dL (6.4-8.2); SODIUM 137 mmol/L (136-145); UREA NITROGEN 7 mg/dL (7-18); eGFR NON AFRICAN AMERICAN > 90 mL/min (90-120)
[2017-12-26 10:01] VITALS: BP 123/69
[2017-12-26 11:36] VITALS: BP 104/71
[2017-12-26 16:00] VITALS: BP 128/80
[2017-12-26 17:16] LABS: APPEARANCE CLEAR (CLEAR); BILIRUBIN NEGATIVE (NEGATIVE); COLOR YELLOW (YELLOW); GLUCOSE NEGATIVE (NEGATIVE); KETONE NEGATIVE (NEGATIVE); NITRITE NEGATIVE (NEGATIVE); PROTEIN NEGATIVE (NEGATIVE); UROBILINOGEN NORMAL (NORMAL)
[2017-12-26 17:18] LABS: BACTERIA FEW /hpf (NONE SEEN); RED CELLS - URINE 0-5 /hpf (0-5); WHITE CELLS - URINE 0-5 /hpf (0-5)
[2017-12-26 17:19] LABS: MUCUS <1+ /lpf (NONE SEEN)
[2017-12-26 21:10] VITALS: BP 134/86
[2017-12-27 05:13] VITALS: BP 145/73
[2017-12-27 10:12] LABS: BASOPHILS 0.5 % (0-2); EOSINOPHILS 9.5 % (0-7); HEMATOCRIT 37.9 % (42.0-54.0); HEMOGLOBIN 12.1 g/dL (13.5-17.5); IMMATURE GRANULOCYTES 0.4 % (0-5); LYMPHOCYTES 19.7 % (15-50); MCH 27.8 pg (26.0-34.0); MCHC 31.9 g/dL (31.0-37.0); MCV 87.1 fL (80.0-100.0); MEAN PLATELET VOLUME 9.2 fL (7.4-10.4); MONOCYTES 10.9 % (2-11); PLATELET COUNT 218 10x3/uL (130-400); RBC 4.35 10x6/uL (4.20-6.10); RDW 15.1 % (11.5-14.5); WBC 5.7 10x3/uL (4.8-10.8)
[2017-12-27 10:29] LABS: ALBUMIN 2.9 g/dL (3.4-5.0); ALKALINE PHOSPHATASE 121 U/L (46-116); ALT (SGPT) 16 U/L (10-68); BILIRUBIN - TOTAL 0.22 mg/dL (0.2-1.3); CALCIUM 8.5 mg/dL (8.5-10.1); CARBON DIOXIDE 28.9 mmol/L (21.0-32.0); CHLORIDE - SERUM 104 mmol/L (98-107); CREATININE - SERUM 0.9 mg/dL (0.6-1.3); GLUCOSE 108 mg/dL (74-106); POTASSIUM - SERUM 4.1 mmol/L (3.5-5.1); PROTEIN - SERUM 7.3 g/dL (6.4-8.2); SODIUM 139 mmol/L (136-145); eGFR NON AFRICAN AMERICAN > 90 mL/min (90-120)
[2017-12-27 10:30] LABS: CALC OSMOLALITY 278 mosm/kg (275-300); UREA NITROGEN 12 mg/dL (7-18)
[2017-12-27 20:00] VITALS: BP 128/65
[2017-12-28] VITALS: BP 153/94
[2017-12-28 04:00] VITALS: BP 146/97
[2017-12-28 05:18] LABS: BASOPHILS 0.7 % (0-2); EOSINOPHILS 10.9 % (0-7); HEMATOCRIT 38.1 % (42.0-54.0); HEMOGLOBIN 12.2 g/dL (13.5-17.5); IMMATURE GRANULOCYTES 0.3 % (0-5); LYMPHOCYTES 23.5 % (15-50); MCV 87.4 fL (80.0-100.0); MEAN PLATELET VOLUME 9.2 fL (7.4-10.4); MONOCYTES 12.1 % (2-11); NEUTROPHILS 52.5 % (40-80); PLATELET COUNT 207 10x3/uL (130-400); RBC 4.36 10x6/uL (4.20-6.10); RDW 15.1 % (11.5-14.5); WBC 6.1 10x3/uL (4.8-10.8)
[2017-12-28 06:23] LABS: ALKALINE PHOSPHATASE 120 U/L (46-116); ALT (SGPT) 17 U/L (10-68); BILIRUBIN - TOTAL 0.28 mg/dL (0.2-1.3); CALC OSMOLALITY 273 mosm/kg (275-300); CALCIUM 8.3 mg/dL (8.5-10.1); CARBON DIOXIDE 27.7 mmol/L (21.0-32.0); CHLORIDE - SERUM 102 mmol/L (98-107); CREATININE - SERUM 0.8 mg/dL (0.6-1.3); GLUCOSE 87 mg/dL (74-106); POTASSIUM - SERUM 4.1 mmol/L (3.5-5.1); PROTEIN - SERUM 7.4 g/dL (6.4-8.2); SODIUM 138 mmol/L (136-145); UREA NITROGEN 10 mg/dL (7-18); eGFR NON AFRICAN AMERICAN > 90 mL/min (90-120)
[2017-12-28 08:38] VITALS: BP 136/78
[2017-12-28 12:15] VITALS: BP 118/80
[2017-12-28 15:59] VITALS: BP 125/91
[2017-12-28 21:24] VITALS: BP 145/89
[2017-12-29] VITALS: BP 145/80
[2017-12-29 04:44] VITALS: BP 148/83
[2017-12-29 07:30] VITALS: BP 134/75
[2017-12-29 11:00] VITALS: BP 161/87
[2017-12-29 13:49] LABS: BASOPHILS 0.5 % (0-2); EOSINOPHILS 10.6 % (0-7); HEMATOCRIT 38.4 % (42.0-54.0); HEMOGLOBIN 12.5 g/dL (13.5-17.5); IMMATURE GRANULOCYTES 0.2 % (0-5); MCH 28.3 pg (26.0-34.0); MCHC 32.6 g/dL (31.0-37.0); MCV 86.9 fL (80.0-100.0); MEAN PLATELET VOLUME 8.9 fL (7.4-10.4); MONOCYTES 10.1 % (2-11); NEUTROPHILS 59.6 % (40-80); PLATELET COUNT 205 10x3/uL (130-400); RBC 4.42 10x6/uL (4.20-6.10); RDW 14.9 % (11.5-14.5); WBC 6.2 10x3/uL (4.8-10.8)
[2017-12-29 13:58] VITALS: Ht 180.3 cm
[2017-12-29 14:15] LABS: ALBUMIN 2.9 g/dL (3.4-5.0); ALKALINE PHOSPHATASE 123 U/L (46-116); BILIRUBIN - TOTAL 0.25 mg/dL (0.2-1.3); CALCIUM 8.2 mg/dL (8.5-10.1); CARBON DIOXIDE 28.3 mmol/L (21.0-32.0); CHLORIDE - SERUM 103 mmol/L (98-107); CREATININE - SERUM 0.8 mg/dL (0.6-1.3); GLUCOSE 102 mg/dL (74-106); POTASSIUM - SERUM 4.2 mmol/L (3.5-5.1); PROTEIN - SERUM 7.3 g/dL (6.4-8.2); SODIUM 136 mmol/L (136-145); eGFR NON AFRICAN AMERICAN > 90 mL/min (90-120)
[2017-12-29 14:20] LABS: ALT (SGPT) 28 U/L (10-68); CALC OSMOLALITY 271 mosm/kg (275-300); UREA NITROGEN 13 mg/dL (7-18)
[2017-12-29 15:00] VITALS: BP 128/48
[2017-12-29 20:00] VITALS: BP 136/82
[2017-12-30] VITALS: BP 115/71
[2017-12-30 06:37] VITALS: BP 133/88
[2017-12-30 09:00] VITALS: BP 134/73
[2017-12-30 11:02] VITALS: BP 129/76
[2017-12-30] MEDS ORDERED: AUGMENTIN 875-11 TAB PO (11:56)
[2017-12-30 15:39] VITALS: BP 120/67
== END 2017-12-30 19:02 | disposition home health service (06) | DRG 603 ==
LOC: D.ER 18:27 → D.M2 21:23 → D.EDHOLD 21:23 → D.ER 21:23 → D.M2 12-30 19:02
PROVIDERS: Family Medicine
DX: L03.115 Cellulitis of right lower limb (principal); G82.20 Paraplegia, unspecified; K21.9 Gastro-esophageal reflux disease without esophagitis; Z87.891 Personal history of nicotine dependence; Z86.718 Personal history of other venous thrombosis and embolism; Z86.73 Personal history of transient ischemic attack (TIA), and cerebral infarction without residual deficits

== ENCOUNTER 2018-01-10 02:27 | Inpatient (IN) | payer MEDICARE ==
[~2018-01-10] VITALS: Ht 180.3 cm; Wt 94.8 kg
--- NOTE | ~2018-01-10 | MORECARE ---
CASE MANAGEMENT DISCHARGE SUMMARY PATIENT: SIDNEY KOWALSKI UNIT: [id number] ADM DATE: 01/10/18 AGE: 47 : 74 SEX: M ROOM/BED: D.1209 AUTHOR: MARIAN WALL PHYSICIAN: REFERRING PHYSICIAN: JUNE COLIN MD DATE OF SERVICE: 01/11/18 Discharge Plan Patient Name: SIDNEY KOWALSKI Facility: [facility]:[place] : 1970 Planned Disposition: Home Anticipated Discharge Date: Discharge Date: Expected LOS: Initial Reviewer: [email or web address] Initial Review Date: 01/11/2018 Generated: 01/11/18 7:21 pm Patient Name: SIDNEY KOWALSKI Page [id number] at 1821 All edits/amendments must be made on the electronic document DICTATION DATE: 01/11/181820 SENIOR PRODUCT DEVELOPMENT MANAGER: MENG 01/11/181820 RPT#: [id number] DC DATE: STATUS: ADM IN [facility] [address] [place] [address] END OF REPORT
--- NOTE | ~2018-01-10 | MORECARE ---
CASE MANAGEMENT DISCHARGE SUMMARY PATIENT: SIDNEY VUONG UNIT: [id number] ADM DATE: 01/10/18 AGE: 47 : 74 SEX: M ROOM/BED: D.1209 AUTHOR: MARIAN WALL PHYSICIAN: REFERRING PHYSICIAN: JUNE COLIN MD DATE OF SERVICE: 01/15/18 Discharge Plan Patient Name: SIDNEY VUONG Facility: [facility]:[place] : 1970 Planned Disposition: Home Anticipated Discharge Date: Discharge Date: Expected LOS: Initial Reviewer: [email or web address] Initial Review Date: 01/11/2018 Generated: 01/15/18 6:42 pm Comments DCP- Discharge Planning Updated by [email or web address]: Emily Brady on 01/15/18 4:[address] CM notified of discharge. Patient denies any discharge needs at this time. He states his mother takes care of him. He states he doesn't need Home Health services or Physical Therapy. IMM explained and served @6142. 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 CM will continue to follow and assist with discharge needs DCP- Discharge Planning Updated by [email or web address]: Emily Brady on 01/11/18 5:[address] Patient Name: SIDNEY VUONG Admission Status: ER Accout number: [id number] Admission Date: 01-10-2018 : 1970 Admission Diagnosis: Attending: JUNE COLIN Current LOS: 1 Anticipated DC Date: Planned Disposition: Home Primary Insurance: MEDICARE A & B Discharge Planning Comments: CM met with patient states he lives at home with his mother. Patient states he plans to return to his home upon discharge. Patient states he has a wheelchair and bedside commode at home. He states he had home health come out a few times since he was last here. According to records it was Care IV for PT in the home. Patients mother was doing wound care. Patient denies any discharge needs at this time. CM will continue to follow and assist as needed with discharge planning / needs. Extender: Emily Brady DCPIA - Discharge Planning Initial Assessment Updated by [email or web address]: Emily Brady on 01/11/18 6:23 pm * Is the patient Alert and Oriented? Yes * How many steps to enter\exit or inside your home? * PCP N/A * Pharmacy [facility] * Preadmission Environment Home with Family * ADLs Partial Dependent * Partial ADLs (Assistance needed) Ambulation Bathing Dressing * Other Equipment wheelchair , bsc, * List name and contact numbers for known caregivers / representatives who currently or will assist patient after discharge: Andressa Vuong [phone] * Verbal permission to speak to the caregivers and representatives has been obtained from the patient. Yes * Community resources currently utilized Home Health * Please name any agencies selected above. Care IV for PT * Additional services required to return to the preadmission environment? No * Can the patient safely return to the preadmission environment? Yes * Has this patient been hospitalized within the prior 30 days at any hospital? Yes Last DP export: 01/11/18 5:36 Patient Name: SIDNEY VUONG Page [id number] at 1742 All edits/amendments must be made on the electronic document DICTATION DATE: 01/15/181740 RIBBON HANKING MACHINE OPERATOR: MENG 01/15/181740 RPT#: [id number] DC DATE: STATUS: ADM IN [facility] [address] [place] [address] END OF REPORT
--- NOTE | ~2018-01-10 | MORECARE ---
CASE MANAGEMENT DISCHARGE SUMMARY PATIENT: SIDNEY VUONG UNIT: [id number] ADM DATE: 01/10/18 AGE: 47 : 74 SEX: M ROOM/BED: D.1209 AUTHOR: DUKE,DOC PHYSICIAN: REFERRING PHYSICIAN: JUNE COLIN MD DATE OF SERVICE: 01/11/18 Discharge Plan Patient Name: SIDNEY VUONG Facility: [facility]:[place] : 1970 Planned Disposition: Home Anticipated Discharge Date: Discharge Date: Expected LOS: Initial Reviewer: [email or web address] Initial Review Date: 01/11/2018 Generated: 01/11/18 7:36 pm Comments DCP- Discharge Planning Updated by [id number]: Emily Brady on 01/11/18 5:[address] Patient Name: SIDNEY VUONG Admission Status: ER Accout number: [id number] Admission Date: 01-10-2018 : 1970 Admission Diagnosis: Attending: JUNE COLIN Current LOS: 1 Anticipated DC Date: Planned Disposition: Home Primary Insurance: MEDICARE A & B Discharge Planning Comments: CM met with patient states he lives at home with his mother. Patient states he plans to return to his home upon discharge. Patient states he has a wheelchair and bedside commode at home. He states he had home health come out a few times since he was last here. According to records it was Care IV for PT in the home. Patients mother was doing wound care. Patient denies any discharge needs at this time. CM will continue to follow and assist as needed with discharge planning / needs. E Commerce Retailer: Emily Brady DCPIA - Discharge Planning Initial Assessment Updated by [email or web address]: Emily Brady on 01/11/18 6:23 pm * Is the patient Alert and Oriented? Yes * How many steps to enter\exit or inside your home? * PCP N/A * Pharmacy [facility] * Preadmission Environment Home with Family * ADLs Partial Dependent * Partial ADLs (Assistance needed) Ambulation Bathing Dressing * Other Equipment wheelchair , bsc, * List name and contact numbers for known caregivers / representatives who currently or will assist patient after discharge: Andressa Vuong [phone] * Verbal permission to speak to the caregivers and representatives has been obtained from the patient. Yes * Community resources currently utilized Home Health * Please name any agencies selected above. Care IV for PT * Additional services required to return to the preadmission environment? No * Can the patient safely return to the preadmission environment? Yes * Has this patient been hospitalized within the prior 30 days at any hospital? Yes Last DP export: 01/11/18 5:29 Patient Name: SIDNEY VUONG Page [id number] at 1836 All edits/amendments must be made on the electronic document DICTATION DATE: 01/11/181834 OCCUPATIONAL HEALTH PHYSIOTHERAPIST: MENG 01/11/181834 RPT#: [id number] [place] DATE: STATUS: ADM IN [facility] [address] [place] [address] END OF REPORT
--- NOTE | ~2018-01-10 | MORECARE ---
CASE MANAGEMENT DISCHARGE SUMMARY PATIENT: SIDNEY VUONG UNIT: [id number] ADM DATE: 01/10/18 AGE: 47 : 74 SEX: M ROOM/BED: D.1209 AUTHOR: MARIAN WALL PHYSICIAN: REFERRING PHYSICIAN: JUNE COLIN MD DATE OF SERVICE: 01/18/18 Discharge Plan Patient Name: SIDNEY VUONG Facility: [facility]:[place] : 1970 Planned Disposition: Home Anticipated Discharge Date: Discharge Date: 01/16/2018 Expected LOS: Initial Reviewer: [email or web address] Initial Review Date: 01/11/2018 Generated: 01/18/18 10:56 am DCP- Discharge Planning Updated by [email or web address]: Emily Brady on 01/15/18 4:[address] CM notified of discharge. Patient denies any discharge needs at this time. He states his mother takes care of him. He states he doesn't need Home Health services or Physical Therapy. IMM explained and served @1702. 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 CM will continue to follow and assist with discharge needs DCP- Discharge Planning Updated by [email or web address]: Emily Brady on 01/11/18 5:[address] Patient Name: SIDNEY VUONG Admission Status: ER Accout number: [id number] Admission Date: 01-10-2018 : 1970 Admission Diagnosis: Attending: JUNE COLIN Current LOS: 1 Anticipated DC Date: Planned Disposition: Home Primary Insurance: MEDICARE A & B Discharge Planning Comments: CM met with patient states he lives at home with his mother. Patient states he plans to return to his home upon discharge. Patient states he has a wheelchair and bedside commode at home. He states he had home health come out a few times since he was last here. According to records it was Care IV for PT in the home. Patients mother was doing wound care. Patient denies any discharge needs at this time. CM will continue to follow and assist as needed with discharge planning / needs. Actuarial Assistant: Emily Brady DCPIA - Discharge Planning Initial Assessment Updated by [email or web address]: Emily Brady on 01/11/18 6:23 pm * Is the patient Alert and Oriented? Yes * How many steps to enter\exit or inside your home? * PCP N/A * Pharmacy [facility] * Preadmission Environment Home with Family * ADLs Partial Dependent * Partial ADLs (Assistance needed) Ambulation Bathing Dressing * Other Equipment wheelchair , bsc, * List name and contact numbers for known caregivers / representatives who currently or will assist patient after discharge: Andressa Vuong [phone] * Verbal permission to speak to the caregivers and representatives has been obtained from the patient. Yes * Community resources currently utilized Home Health * Please name any agencies selected above. Care IV for PT * Additional services required to return to the preadmission environment? No * Can the patient safely return to the preadmission environment? Yes * Has this patient been hospitalized within the prior 30 days at any hospital? Yes Coverage Notice Reviewer: [email or web address] - Emily Brady Notice Issued Date-Time: 01/15/2018 17:02 Notice Type: IM Discharge Notice Notice Delivered To: Patient Relationship to Patient: Self Cognos Report Developer Name: Delivery Method: - Daniella Days: Prior Verbal Notification: Recipient Understood Notice: Yes Recipient Signature: Yes Med Rec Note Co-signed by Attending: Coverage Notice Comment: Last DP export: 01/15/18 4:42 Patient Name: SIDNEY VUONG Page 24926 at 0957 All edits/amendments must be made on the electronic document DICTATION DATE: 01/18/18955 SENIOR IT SECURITY ANALYST: MENG 01/18/18955 RPT#: [id number] DC DATE:01/16/18 STATUS: DIS IN [facility] [address] [place] [address] END OF REPORT
--- NOTE | ~2018-01-10 | MORECARE ---
CASE MANAGEMENT DISCHARGE SUMMARY PATIENT: SIDNEY VUONG UNIT: [id number] ADM DATE: 01/10/18 AGE: 47 : 74 SEX: M ROOM/BED: D.1209 AUTHOR: MARIAN WALL PHYSICIAN: REFERRING PHYSICIAN: JUNE COLIN MD DATE OF SERVICE: 01/11/18 Discharge Plan Patient Name: SIDNEY VUONG Facility: [facility]:[place] : 1970 Planned Disposition: Home Anticipated Discharge Date: Discharge Date: Expected LOS: Initial Reviewer: [email or web address] Initial Review Date: 01/11/2018 Generated: 01/11/18 7:29 pm DCPIA - Discharge Planning Initial Assessment Updated by [email or web address]: Emily Brady on 01/11/18 6:23 pm * Is the patient Alert and Oriented? Yes * How many steps to enter\exit or inside your home? * PCP N/A * Pharmacy [facility] * Preadmission Environment Home with Family * ADLs Partial Dependent * Partial ADLs (Assistance needed) Ambulation Bathing Dressing * Other Equipment wheelchair , bsc, * List name and contact numbers for known caregivers / representatives who currently or will assist patient after discharge: Andressa Vuong [phone] * Verbal permission to speak to the caregivers and representatives has been obtained from the patient. Yes * Community resources currently utilized Home Health * Please name any agencies selected above. Care IV for PT * Additional services required to return to the preadmission environment? No * Can the patient safely return to the preadmission environment? Yes * Has this patient been hospitalized within the prior 30 days at any hospital? Yes Last DP export: 01/11/18 5:21 Patient Name: SIDNEY VUONG Page [id number] at 1829 All edits/amendments must be made on the electronic document DICTATION DATE: 01/11/181827 SUPERVISOR WOOD ROOM: MENG 01/11/181827 RPT#: [id number] DC DATE: STATUS: ADM IN [facility] [address] [place] [address] END OF REPORT
[~2018-01-10 02:27] MED LIST changes: +AUGMENTIN 875-11 TAB PO; +HYSINGLA ER30 MG PO
[2018-01-10 02:56] LABS: BASOPHILS 0.4 % (0-2); EOSINOPHILS 3.4 % (0-7); HEMATOCRIT 35.4 % (42.0-54.0); HEMOGLOBIN 11.6 g/dL (13.5-17.5); IMMATURE GRANULOCYTES 0.4 % (0-5); LYMPHOCYTES 11.8 % (15-50); MCH 28.1 pg (26.0-34.0); MCHC 32.8 g/dL (31.0-37.0); MCV 85.7 fL (80.0-100.0); MONOCYTES 15.1 % (2-11); NEUTROPHILS 68.9 % (40-80); RBC 4.13 10x6/uL (4.20-6.10); RDW 14.7 % (11.5-14.5); WBC 7.4 10x3/uL (4.8-10.8)
[2018-01-10 03:01] LABS: PLATELET COUNT 255 10x3/uL (130-400)
[2018-01-10 03:03] LABS: COLOR YELLOW (YELLOW)
[2018-01-10 03:04] LABS: APPEARANCE HAZY (CLEAR); BACTERIA FEW /hpf (NONE SEEN); BILIRUBIN NEGATIVE (NEGATIVE); EPITHELIAL CELLS RARE /hpf (0-5); GLUCOSE NEGATIVE (NEGATIVE); KETONE NEGATIVE (NEGATIVE); NITRITE NEGATIVE (NEGATIVE); PROTEIN NEGATIVE (NEGATIVE); RED CELLS - URINE 25-50 /hpf (0-5); SPECIFIC GRAVITY 1.005 (1.005-1.020); UROBILINOGEN NORMAL (NORMAL); WHITE CELLS - URINE 25-50 /hpf (0-5)
[2018-01-10 03:06] LABS: ALKALINE PHOSPHATASE 162 U/L (46-116); ALT (SGPT) 32 U/L (10-68); BILIRUBIN - TOTAL 0.59 mg/dL (0.2-1.3); CALC OSMOLALITY 275 mosm/kg (275-300); CALCIUM 8.6 mg/dL (8.5-10.1); CARBON DIOXIDE 27.3 mmol/L (21.0-32.0); CHLORIDE - SERUM 104 mmol/L (98-107); CREATININE - SERUM 0.8 mg/dL (0.6-1.3); GLUCOSE 103 mg/dL (74-106); POTASSIUM - SERUM 3.5 mmol/L (3.5-5.1); SODIUM 139 mmol/L (136-145); UREA NITROGEN 8 mg/dL (7-18); eGFR NON AFRICAN AMERICAN > 90 mL/min (90-120)
[2018-01-10 03:07] LABS: INR 1.11 (0.85-1.17); PROTIME 13.9 SECONDS (11.6-15.0)
[2018-01-10] MEDS ORDERED: ACETAMINOPHEN500 M1 PO (05:49)
[2018-01-10 06:11] VITALS: BP 122/78
[2018-01-10 06:59] VITALS: BP 122/78
[2018-01-10 08:00] VITALS: BP 110/59
[2018-01-10 12:00] VITALS: BP 115/59
[2018-01-10 16:00] VITALS: BP 104/57
[2018-01-10 19:51] VITALS: BP 129/78
[2018-01-11] VITALS: BP 135/65
[2018-01-11 04:00] VITALS: BP 101/72
[2018-01-11 05:48] LABS: BASOPHILS 0.7 % (0-2); EOSINOPHILS 6.6 % (0-7); HEMATOCRIT 34.2 % (42.0-54.0); HEMOGLOBIN 10.9 g/dL (13.5-17.5); IMMATURE GRANULOCYTES 0.3 % (0-5); MCH 27.7 pg (26.0-34.0); MCHC 31.9 g/dL (31.0-37.0); MCV 86.8 fL (80.0-100.0); MEAN PLATELET VOLUME 9.2 fL (7.4-10.4); MONOCYTES 13.2 % (2-11); NEUTROPHILS 54.2 % (40-80); PLATELET COUNT 255 10x3/uL (130-400); RBC 3.94 10x6/uL (4.20-6.10); WBC 6.7 10x3/uL (4.8-10.8)
[2018-01-11 06:00] LABS: CALC OSMOLALITY 277 mosm/kg (275-300); CARBON DIOXIDE 27.2 mmol/L (21.0-32.0); CHLORIDE - SERUM 104 mmol/L (98-107); CREATININE - SERUM 0.8 mg/dL (0.6-1.3); GLUCOSE 95 mg/dL (74-106); POTASSIUM - SERUM 3.7 mmol/L (3.5-5.1); SODIUM 140 mmol/L (136-145); UREA NITROGEN 10 mg/dL (7-18); eGFR NON AFRICAN AMERICAN > 90 mL/min (90-120)
[2018-01-11 07:36] VITALS: BP 120/68
[2018-01-11 10:43] VITALS: BMI 29.9
[2018-01-11 12:00] VITALS: BP 125/81
[2018-01-11 17:30] VITALS: Ht 180.3 cm; Wt 94.8 kg
[2018-01-11 19:57] VITALS: BP 127/79
[2018-01-12] VITALS: BP 117/51
[2018-01-12 04:00] VITALS: BP 149/78
[2018-01-12 06:12] LABS: BASOPHILS 0.6 % (0-2); EOSINOPHILS 7.7 % (0-7); HEMATOCRIT 33.7 % (42.0-54.0); HEMOGLOBIN 10.6 g/dL (13.5-17.5); IMMATURE GRANULOCYTES 0.4 % (0-5); MCH 27.7 pg (26.0-34.0); MCHC 31.5 g/dL (31.0-37.0); MCV 88.2 fL (80.0-100.0); MEAN PLATELET VOLUME 9.1 fL (7.4-10.4); NEUTROPHILS 59.3 % (40-80); PLATELET COUNT 227 10x3/uL (130-400); RBC 3.82 10x6/uL (4.20-6.10); RDW 15.1 % (11.5-14.5); WBC 5.4 10x3/uL (4.8-10.8)
[2018-01-12 06:36] LABS: ALBUMIN 2.6 g/dL (3.4-5.0); ALKALINE PHOSPHATASE 110 U/L (46-116); ALT (SGPT) 21 U/L (10-68); BILIRUBIN - TOTAL 0.19 mg/dL (0.2-1.3); CALC OSMOLALITY 276 mosm/kg (275-300); CALCIUM 8.1 mg/dL (8.5-10.1); CARBON DIOXIDE 29.6 mmol/L (21.0-32.0); CHLORIDE - SERUM 104 mmol/L (98-107); CREATININE - SERUM 0.7 mg/dL (0.6-1.3); GLUCOSE 96 mg/dL (74-106); PROTEIN - SERUM 6.6 g/dL (6.4-8.2); SODIUM 139 mmol/L (136-145); UREA NITROGEN 9 mg/dL (7-18); eGFR NON AFRICAN AMERICAN > 90 mL/min (90-120)
[2018-01-12 06:37] LABS: POTASSIUM - SERUM 4.3 mmol/L (3.5-5.1)
[2018-01-12 15:48] VITALS: BP 108/64
[2018-01-12 20:25] VITALS: BP 115/64
[2018-01-13 00:33] VITALS: BP 110/59
[2018-01-13 05:19] VITALS: BP 131/68
[2018-01-13 07:19] VITALS: BP 124/71
[2018-01-13 08:07] LABS: BASOPHILS 0.8 % (0-2); EOSINOPHILS 10.9 % (0-7); HEMATOCRIT 36.1 % (42.0-54.0); HEMOGLOBIN 11.4 g/dL (13.5-17.5); IMMATURE GRANULOCYTES 0.2 % (0-5); LYMPHOCYTES 21.4 % (15-50); MCH 28.1 pg (26.0-34.0); MCHC 31.6 g/dL (31.0-37.0); MCV 88.9 fL (80.0-100.0); MONOCYTES 11.3 % (2-11); NEUTROPHILS 55.4 % (40-80); PLATELET COUNT 216 10x3/uL (130-400); RBC 4.06 10x6/uL (4.20-6.10); RDW 15.1 % (11.5-14.5); WBC 4.9 10x3/uL (4.8-10.8)
[2018-01-13 08:21] LABS: ALBUMIN 2.8 g/dL (3.4-5.0); ALKALINE PHOSPHATASE 111 U/L (46-116); ALT (SGPT) 22 U/L (10-68); BILIRUBIN - TOTAL 0.18 mg/dL (0.2-1.3); CALC OSMOLALITY 276 mosm/kg (275-300); CALCIUM 8.2 mg/dL (8.5-10.1); CARBON DIOXIDE 28.8 mmol/L (21.0-32.0); CHLORIDE - SERUM 103 mmol/L (98-107); CREATININE - SERUM 0.8 mg/dL (0.6-1.3); GLUCOSE 98 mg/dL (74-106); POTASSIUM - SERUM 4.3 mmol/L (3.5-5.1); PROTEIN - SERUM 7.1 g/dL (6.4-8.2); SODIUM 139 mmol/L (136-145); UREA NITROGEN 10 mg/dL (7-18); eGFR NON AFRICAN AMERICAN > 90 mL/min (90-120)
[2018-01-13 11:34] VITALS: BP 117/61
[2018-01-13 15:20] VITALS: BP 118/59
[2018-01-13 20:00] VITALS: BP 104/56
[2018-01-14] VITALS (7 sets, daily range): BP systolic 107–139; BP diastolic 56–77
[2018-01-14 16:15] LABS: BASOPHILS 0.6 % (0-2); EOSINOPHILS 8.5 % (0-7); HEMATOCRIT 34.9 % (42.0-54.0); HEMOGLOBIN 10.9 g/dL (13.5-17.5); IMMATURE GRANULOCYTES 0.4 % (0-5); LYMPHOCYTES 22.8 % (15-50); MCH 27.3 pg (26.0-34.0); MCHC 31.2 g/dL (31.0-37.0); MCV 87.3 fL (80.0-100.0); MEAN PLATELET VOLUME 8.9 fL (7.4-10.4); MONOCYTES 8.1 % (2-11); NEUTROPHILS 59.6 % (40-80); PLATELET COUNT 216 10x3/uL (130-400); WBC 5.1 10x3/uL (4.8-10.8)
[2018-01-14 16:18] LABS: CALC OSMOLALITY 279 mosm/kg (275-300); CALCIUM 8.1 mg/dL (8.5-10.1); CARBON DIOXIDE 29.6 mmol/L (21.0-32.0); CHLORIDE - SERUM 104 mmol/L (98-107); CREATININE - SERUM 0.8 mg/dL (0.6-1.3); GLUCOSE 113 mg/dL (74-106); POTASSIUM - SERUM 4.1 mmol/L (3.5-5.1); SODIUM 140 mmol/L (136-145); eGFR NON AFRICAN AMERICAN > 90 mL/min (90-120)
[2018-01-14 16:19] LABS: UREA NITROGEN 13 mg/dL (7-18)
[2018-01-15 04:00] VITALS: BP 112/66
[2018-01-15 06:39] LABS: BASOPHILS 0.3 % (0-2); EOSINOPHILS 7.3 % (0-7); HEMATOCRIT 34.9 % (42.0-54.0); IMMATURE GRANULOCYTES 0.3 % (0-5); LYMPHOCYTES 19.5 % (15-50); MCH 27.6 pg (26.0-34.0); MCHC 31.5 g/dL (31.0-37.0); MCV 87.7 fL (80.0-100.0); MEAN PLATELET VOLUME 8.9 fL (7.4-10.4); MONOCYTES 9.7 % (2-11); NEUTROPHILS 62.9 % (40-80); PLATELET COUNT 230 10x3/uL (130-400); RBC 3.98 10x6/uL (4.20-6.10); RDW 15.4 % (11.5-14.5); WBC 6.3 10x3/uL (4.8-10.8)
[2018-01-15 07:00] LABS: ALBUMIN 2.7 g/dL (3.4-5.0); ALKALINE PHOSPHATASE 104 U/L (46-116); BILIRUBIN - TOTAL 0.36 mg/dL (0.2-1.3); CALC OSMOLALITY 276 mosm/kg (275-300); CALCIUM 8.3 mg/dL (8.5-10.1); CARBON DIOXIDE 28.4 mmol/L (21.0-32.0); CHLORIDE - SERUM 104 mmol/L (98-107); CREATININE - SERUM 0.7 mg/dL (0.6-1.3); GLUCOSE 88 mg/dL (74-106); POTASSIUM - SERUM 4.1 mmol/L (3.5-5.1); PROTEIN - SERUM 6.7 g/dL (6.4-8.2); SODIUM 140 mmol/L (136-145); UREA NITROGEN 11 mg/dL (7-18); eGFR NON AFRICAN AMERICAN > 90 mL/min (90-120)
[2018-01-15 07:01] LABS: ALT (SGPT) 41 U/L (10-68)
[2018-01-15 08:09] VITALS: BP 143/87
[2018-01-15 08:20] LABS: HEXAGONAL PHASE PHOS 10 sec (0-11); LUPUS - INTERPRETATION Comment: (()); LUPUS - THROMBIN TIME 18.3 sec (0.0-23.0); LUPUS - dRVVT 52.2 sec (0.0-47.0); PTT-LA 58.8 sec (0.0-51.9); PTT-LA MIX 49.8 sec (0.0-48.9)
[2018-01-15 15:03] VITALS: BP 141/74
[2018-01-15] MEDS ORDERED: ELIQUIS5 MG PO (15:18)
[2018-01-15] MEDS ORDERED: CLEOCIN HCL300 MG PO (15:26)
[2018-01-15 19:25] VITALS: BP 120/80
[2018-01-16 04:45] VITALS: BP 149/76
[2018-01-16 07:20] LABS: BASOPHILS 0.6 % (0-2); EOSINOPHILS 8.1 % (0-7); HEMATOCRIT 36.2 % (42.0-54.0); HEMOGLOBIN 11.7 g/dL (13.5-17.5); IMMATURE GRANULOCYTES 0.4 % (0-5); LYMPHOCYTES 20.2 % (15-50); MCH 28.1 pg (26.0-34.0); MCHC 32.3 g/dL (31.0-37.0); MONOCYTES 8.1 % (2-11); NEUTROPHILS 62.6 % (40-80); PLATELET COUNT 212 10x3/uL (130-400); RBC 4.16 10x6/uL (4.20-6.10); RDW 15.2 % (11.5-14.5); WBC 5.3 10x3/uL (4.8-10.8)
[2018-01-16 07:23] VITALS: BP 122/77
[2018-01-16 07:36] LABS: ALBUMIN 2.8 g/dL (3.4-5.0); ALKALINE PHOSPHATASE 109 U/L (46-116); ALT (SGPT) 40 U/L (10-68); BILIRUBIN - TOTAL 0.27 mg/dL (0.2-1.3); CALC OSMOLALITY 277 mosm/kg (275-300); CALCIUM 8.4 mg/dL (8.5-10.1); CARBON DIOXIDE 26.9 mmol/L (21.0-32.0); CHLORIDE - SERUM 106 mmol/L (98-107); CREATININE - SERUM 0.7 mg/dL (0.6-1.3); GLUCOSE 92 mg/dL (74-106); SODIUM 140 mmol/L (136-145); UREA NITROGEN 10 mg/dL (7-18); eGFR NON AFRICAN AMERICAN > 90 mL/min (90-120)
[2018-01-18 18:09] LABS: FACTOR II DNA ANALYSIS Negative (())
== END 2018-01-16 09:00 | disposition home or self-care (01) | DRG 300 ==
LOC: D.ER 02:27 → D.MS 04:05 → D.M3 04:05
PROVIDERS: Emergency Medicine; Family Medicine; Internal Medicine Hematology & Oncology
DX: I82.402 Acute embolism and thrombosis of unspecified deep veins of left lower extremity (principal); L03.116 Cellulitis of left lower limb; I96 Gangrene, not elsewhere classified; G82.20 Paraplegia, unspecified; G72.81 Critical illness myopathy; L03.115 Cellulitis of right lower limb; D64.9 Anemia, unspecified; E87.6 Hypokalemia; Z91.19 Patient's noncompliance with other medical treatment and regimen; F41.9 Anxiety disorder, unspecified; Z79.01 Long term (current) use of anticoagulants; K21.9 Gastro-esophageal reflux disease without esophagitis; G89.29 Other chronic pain; S81.831A Puncture wound without foreign body, right lower leg, initial encounter; W45.8XXA Other foreign body or object entering through skin, initial encounter; Y92.230 Patient room in hospital as the place of occurrence of the external cause; Z86.73 Personal history of transient ischemic attack (TIA), and cerebral infarction without residual deficits; Z87.891 Personal history of nicotine dependence; Z86.718 Personal history of other venous thrombosis and embolism

== ENCOUNTER 2018-07-20 17:45 | Emergency (ER) | payer MEDICARE ==
[~2018-07-20] VITALS: Ht 180.3 cm; Wt 97.7 kg
[2018-07-20 17:52] VITALS: Ht 180.3 cm; Wt 97.7 kg
[2018-07-20 18:30] LABS: BASOPHILS 0.2 % (0-2); EOSINOPHILS 3.8 % (0-7); HEMATOCRIT 39.2 % (42.0-54.0); HEMOGLOBIN 13.2 g/dL (13.5-17.5); IMMATURE GRANULOCYTES 0.2 % (0-5); LYMPHOCYTES 13.2 % (15-50); MCH 29.8 pg (26.0-34.0); MCHC 33.7 g/dL (31.0-37.0); MCV 88.5 fL (80.0-100.0); MEAN PLATELET VOLUME 8.9 fL (7.4-10.4); MONOCYTES 12.8 % (2-11); NEUTROPHILS 69.8 % (40-80); PLATELET COUNT 232 10x3/uL (130-400); RBC 4.43 10x6/uL (4.20-6.10); RDW 14.2 % (11.5-14.5); WBC 8.1 10x3/uL (4.8-10.8)
[2018-07-20 18:44] LABS: APTT 24.5 SECONDS (22.8-39.4); INR 1.14 (0.85-1.17); PROTIME 14.1 SECONDS (11.6-15.0)
[2018-07-20 19:05] LABS: ALBUMIN 3.3 g/dL (3.4-5.0); ALKALINE PHOSPHATASE 150 U/L (46-116); ALT (SGPT) 22 U/L (10-68); BILIRUBIN - TOTAL 0.74 mg/dL (0.2-1.3); CALC OSMOLALITY 273 mosm/kg (275-300); CALCIUM 8.6 mg/dL (8.5-10.1); CARBON DIOXIDE 29.3 mmol/L (21.0-32.0); CHLORIDE - SERUM 101 mmol/L (98-107); CREATININE - SERUM 0.6 mg/dL (0.6-1.3); GLUCOSE 95 mg/dL (74-106); PROTEIN - SERUM 7.2 g/dL (6.4-8.2); SODIUM 138 mmol/L (136-145); UREA NITROGEN 8 mg/dL (7-18); eGFR NON AFRICAN AMERICAN > 90 mL/min (90-120)
[2018-07-21 00:35] LABS: APPEARANCE CLEAR (CLEAR); BILIRUBIN NEGATIVE (NEGATIVE); COLOR YELLOW (YELLOW); GLUCOSE NEGATIVE (NEGATIVE); KETONE NEGATIVE (NEGATIVE); NITRITE NEGATIVE (NEGATIVE); PH 7.5 (5.0-6.0); PROTEIN TRACE mg/dL (NEGATIVE); SPECIFIC GRAVITY 1.005 (1.005-1.020); UROBILINOGEN NORMAL (NORMAL)
[2018-07-21 00:38] LABS: WHITE CELLS - URINE 0-5 /hpf (0-5)
[2018-07-21 00:39] LABS: BACTERIA FEW /hpf (NONE SEEN); EPITHELIAL CELLS RARE /hpf (0-5)
[2018-07-21 02:08] VITALS: BP 124/73
== END 2018-07-21 02:55 | disposition short-term general hospital (02) ==
LOC: D.ER 17:45
PROVIDERS: Family Medicine
DX: N99.840 Postprocedural hematoma of a genitourinary system organ or structure following a genitourinary system procedure (principal); K21.9 Gastro-esophageal reflux disease without esophagitis; R41.82 Altered mental status, unspecified

== ENCOUNTER 2018-11-02 18:49 | Inpatient (IN) | payer MEDICARE ==
[~2018-11-02] VITALS: Ht 180.3 cm; Wt 97.1 kg
[2018-11-02 21:24] LABS: APPEARANCE HAZY (CLEAR); BILIRUBIN NEGATIVE (NEGATIVE); COLOR DK YELLOW (YELLOW); GLUCOSE NEGATIVE (NEGATIVE); KETONE NEGATIVE (NEGATIVE); NITRITE NEGATIVE (NEGATIVE); PROTEIN TRACE mg/dL (NEGATIVE); SPECIFIC GRAVITY 1.015 (1.005-1.020); UROBILINOGEN NORMAL (NORMAL)
[2018-11-02 21:25] LABS: BACTERIA MODERATE /hpf (NONE SEEN); RED CELLS - URINE 0-5 /hpf (0-5); WHITE CELLS - URINE >50 /hpf (0-5)
[2018-11-02 21:25] LABS: BASOPHILS 0.3 % (0-2); HEMATOCRIT 34.9 % (42.0-54.0); HEMOGLOBIN 11.6 g/dL (13.5-17.5); IMMATURE GRANULOCYTES 0.2 % (0-5); LYMPHOCYTES 17.6 % (15-50); MCHC 33.2 g/dL (31.0-37.0); MCV 84.3 fL (80.0-100.0); MEAN PLATELET VOLUME 8.6 fL (7.4-10.4); MONOCYTES 11.3 % (2-11); NEUTROPHILS 64.6 % (40-80); PLATELET COUNT 228 10x3/uL (130-400); RBC 4.14 10x6/uL (4.20-6.10); RDW 14.6 % (11.5-14.5); WBC 6.4 10x3/uL (4.8-10.8)
[2018-11-02 21:50] LABS: ALBUMIN 2.7 g/dL (3.4-5.0); ALKALINE PHOSPHATASE 153 U/L (46-116); ALT (SGPT) 56 U/L (10-68); BILIRUBIN - TOTAL 0.46 mg/dL (0.2-1.3); CALC OSMOLALITY 270 mosm/kg (275-300); CALCIUM 8.4 mg/dL (8.5-10.1); CARBON DIOXIDE 29.9 mmol/L (21.0-32.0); CHLORIDE - SERUM 101 mmol/L (98-107); CREATININE - SERUM 0.7 mg/dL (0.6-1.3); GLUCOSE 88 mg/dL (74-106); POTASSIUM - SERUM 3.4 mmol/L (3.5-5.1); PROTEIN - SERUM 6.7 g/dL (6.4-8.2); SODIUM 137 mmol/L (136-145); UREA NITROGEN 7 mg/dL (7-18); eGFR NON AFRICAN AMERICAN > 90 mL/min (90-120)
--- NOTE | 2018-11-02 23:19 | NUR ---
NS AND ROCEPHIN STOPPED WHEN PT TAKEN TO ROOM AT 2317
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
[2018-11-03 00:57] VITALS: BP 132/81; BMI 29.9
--- NOTE | 2018-11-03 02:07 | NUR ---
MEDICATED WITH MORPHINE FOR C/O PAIN IN BLE. V/S STABLE. CL IN REACH.
--- NOTE | 2018-11-03 04:35 | NUR ---
22G INSERTED IN LT HAND AFTER ATTEMPT X3.
[2018-11-03 04:58] LABS: BASOPHILS 0.2 % (0-2); EOSINOPHILS 7.2 % (0-7); HEMATOCRIT 33.9 % (42.0-54.0); HEMOGLOBIN 11.2 g/dL (13.5-17.5); IMMATURE GRANULOCYTES 0.2 % (0-5); LYMPHOCYTES 19.4 % (15-50); MCV 84.8 fL (80.0-100.0); MEAN PLATELET VOLUME 8.7 fL (7.4-10.4); MONOCYTES 10.4 % (2-11); NEUTROPHILS 62.6 % (40-80); PLATELET COUNT 232 10x3/uL (130-400); RDW 14.4 % (11.5-14.5)
[2018-11-03 05:37] LABS: CALC OSMOLALITY 273 mosm/kg (275-300); CALCIUM 8.2 mg/dL (8.5-10.1); CARBON DIOXIDE 29.7 mmol/L (21.0-32.0); CHLORIDE - SERUM 103 mmol/L (98-107); CREATININE - SERUM 0.6 mg/dL (0.6-1.3); GLUCOSE 88 mg/dL (74-106); MAGNESIUM - SERUM 1.8 mg/dL (1.8-2.4); PHOSPHOROUS 2.7 mg/dL (2.5-4.9); POTASSIUM - SERUM 3.5 mmol/L (3.5-5.1); SODIUM 139 mmol/L (136-145); eGFR NON AFRICAN AMERICAN > 90 mL/min (90-120)
[2018-11-03 05:48] LABS: APTT 29.2 SECONDS (22.8-39.4); INR 1.1 (0.85-1.17); PROTIME 13.7 SECONDS (11.6-15.0)
[2018-11-03 06:24] LABS: UREA NITROGEN 5 mg/dL (7-18)
--- NOTE | 2018-11-03 06:33 | NUR ---
MEDICATED WITH MORPHINE FOR C/O PAIN IN BLE. CL IN REACH. TALKATIVE WITH STAFF. NO DISTRESS.
--- NOTE | 2018-11-03 08:05 | NUR ---
PT RESTING IN BED WITH EYES CLOSED. AROUSES EASILY STAFF CALLS NAME. NO ACUTE DISTRESS NOTED. RATES PAIN 4/10 AT THIS TIME. EDUCATED PT TO PAIN MEDICATION ADMINISTRATION TIMES. PT VOICES UNDERSTANDING. IV TO LEFT HAND WITH NS @100ML/HR INFUSING VIA PUMP. SITE WITHOUT REDNESS OR EDEMA. DENIES FURTHER NEEDS AT THIS TIME. CL WITHIN REACH. ENCOURAGED TO CALL WITH NEEDS. CONTINUE POC
[2018-11-03 12:39] VITALS: Ht 180.3 cm; Wt 97.1 kg
--- NOTE | 2018-11-03 20:50 | NUR ---
LYING IN BED. ALERT AND ORIENTED X4. DENIES PAIN. RESP EVEN AND NONLABORED. TELEMETRY SHOWS SR WITH RATE OF 67. GEN EDEMA NOTED. 4+ TO BLE. SCABS NOTED TO ABD, PELVIS AND BLE. BLE RED AND WARM TO TOUCH. NS @ 100 ML/HR INFUSING IN LT HAND. USES URINAL. PARAPLEGIC. CONTACT ISO IN USE DUE TO HEAD LICE. NO DISTRESS. SR ELEVATED X2. CL IN REACH.
[2018-11-04 02:02] VITALS: BP 97/57
--- NOTE | 2018-11-04 02:09 | NUR ---
HAS BEEN AWAKE ALL NIGHT. EATING SNACKS. NO DISTRESS. CL IN REACH.
[2018-11-04 02:44] VITALS: BP 106/59
[2018-11-04 04:06] LABS: BASOPHILS 0.5 % (0-2); EOSINOPHILS 6.5 % (0-7); HEMATOCRIT 31.9 % (42.0-54.0); HEMOGLOBIN 10.4 g/dL (13.5-17.5); IMMATURE GRANULOCYTES 0.2 % (0-5); LYMPHOCYTES 16.2 % (15-50); MCHC 32.6 g/dL (31.0-37.0); MCV 85.8 fL (80.0-100.0); MEAN PLATELET VOLUME 8.4 fL (7.4-10.4); MONOCYTES 10.2 % (2-11); NEUTROPHILS 66.4 % (40-80); PLATELET COUNT 206 10x3/uL (130-400); RBC 3.72 10x6/uL (4.20-6.10); RDW 14.8 % (11.5-14.5); WBC 5.7 10x3/uL (4.8-10.8)
[2018-11-04 05:04] VITALS: BP 109/51
[2018-11-04 06:16] LABS: CALCIUM 7.3 mg/dL (8.5-10.1); CARBON DIOXIDE 26.5 mmol/L (21.0-32.0); CHLORIDE - SERUM 105 mmol/L (98-107); GLUCOSE 119 mg/dL (74-106); MAGNESIUM - SERUM 1.8 mg/dL (1.8-2.4); SODIUM 139 mmol/L (136-145)
[2018-11-04 06:17] LABS: CALC OSMOLALITY 277 mosm/kg (275-300); CREATININE - SERUM 0.8 mg/dL (0.6-1.3); PHOSPHOROUS 3.5 mg/dL (2.5-4.9); UREA NITROGEN 9 mg/dL (7-18); eGFR NON AFRICAN AMERICAN > 90 mL/min (90-120)
[2018-11-04 08:34] VITALS: BP 108/69
[2018-11-04] MEDS ORDERED: FLORAJEN3 CAPS460 MG PO (10:46)
[2018-11-04] MEDS ORDERED: PROTONIX40 MG PO (10:46)
[2018-11-04] MEDS ORDERED: CLEOCIN HCL300 MG PO (10:46)
[2018-11-04] MEDS ORDERED: ELIQUIS5 MG PO (10:47)
[2018-11-04] MEDS ORDERED: PERMETHRIN60 GM TOPICAL (10:49)
--- NOTE | 2018-11-04 12:35 | MORECARE ---
CASE MANAGEMENT DISCHARGE SUMMARY PATIENT: SIDNEY KOWALSKI UNIT: [id number] ADM DATE: 11/02/18 AGE: 47 : 74 SEX: M ROOM/BED: D.2206 AUTHOR: MARIAN WALL PHYSICIAN: REFERRING PHYSICIAN: JUD PEREZ MD DATE OF SERVICE: 11/04/18 Discharge Plan Patient Name: SIDNEY KOWALSKI Facility: [facility]:[place] : 1970 Planned Disposition: Home Anticipated Discharge Date: Discharge Date: Expected LOS: Initial Reviewer: [email or web address] Initial Review Date: 11/02/2018 Generated: 11/04/18 1:35 pm DCPIA - Discharge Planning Initial Assessment Updated by [email or web address]: Flakita Bonner on 11/04/18 12:34 pm * Is the patient Alert and Oriented? Yes * PCP none * Pharmacy doesn't know * Preadmission Environment Home with Family * ADLs Partial Dependent * Partial ADLs (Assistance needed) Ambulation Bathing Medication Management * Equipment Rolling Walker Shower Chair Wheelchair * List name and contact numbers for known caregivers / representatives who currently or will assist patient after discharge: Andressa (Mother) [phone] * Verbal permission to speak to the caregivers and representatives has been obtained from the patient. Yes * Community resources currently utilized None * Additional services required to return to the preadmission environment? No * Can the patient safely return to the preadmission environment? Yes * Has this patient been hospitalized within the prior 30 days at any hospital? No Patient Name: SIDNEY KOWALSKI Page [phone] at 1235 All edits/amendments must be made on the electronic document DICTATION DATE: 11/04/18 1235 BUDGET CLERK: MENG 11/04/18 1235 RPT#: [id number] DC DATE: STATUS: ADM IN [facility] [address] [place] [address] END OF REPORT
--- NOTE | 2018-11-04 12:43 | MORECARE ---
CASE MANAGEMENT DISCHARGE SUMMARY PATIENT: SIDNEY KOWALSKI UNIT: [id number] ADM DATE: 11/02/18 AGE: 47 : 74 SEX: M ROOM/BED: D.2206 AUTHOR: MARIAN WALL PHYSICIAN: REFERRING PHYSICIAN: JUD PEREZ MD DATE OF SERVICE: 11/04/18 Discharge Plan Patient Name: SIDNEY KOWALSKI Facility: [facility]:[place] : 1970 Planned Disposition: Home Anticipated Discharge Date: Discharge Date: Expected LOS: Initial Reviewer: [email or web address] Initial Review Date: 11/02/2018 Generated: 11/04/18 1:43 pm Comments DCP- Discharge Planning Updated by [email or web address]: Flakita Bonner on 11/04/18 11:[address] Patient Name: SIDNEY KOWALSKI Admission Status: ER Accout number: [id number] Admission Date: 11-02-2018 : 1970 Admission Diagnosis:CELLULITIS OF LEFT LOWER LIMB Attending: JUD PEREZ Current LOS: 2 Anticipated DC Date: Planned Disposition: Home Primary Insurance: MEDICARE A & B Discharge Planning Comments: CM met with patient to complete initial dc planning assessment. CM educated patient on the CM role and verbal consent given by patient to complete assessment. Patient lives at home with his brother and mother, who is his primary residential caregiver. At discharge patient plans to return home and feels this is a safe discharge. CM discussed availability of home health, rehab services, and medical equipment. He does not want home health (and last admission had a hard time finding a HH who would take him, he has been fired by all) He stated that he has all the medical equipment he needs. I spoke to him about [place] choices, but he did know is he had that. Patient denied known discharge needs at this time. I have attempted to call his mother multiple times but her number is quick busy tone. CM will continue to follow and will assist as needed with dc plans/needs. Nursing Instructor: Flakita Bonner DCPIA - Discharge Planning Initial Assessment Updated by [email or web address]: Flakita Bonner on 11/04/18 12:34 pm * Is the patient Alert and Oriented? Yes * PCP none * Pharmacy doesn't know * Preadmission Environment Home with Family * ADLs Partial Dependent * Partial ADLs (Assistance needed) Ambulation Bathing Medication Management * Equipment Rolling Walker Shower Chair Wheelchair * List name and contact numbers for known caregivers / representatives who currently or will assist patient after discharge: Andressa (Mother) [phone] * Verbal permission to speak to the caregivers and representatives has been obtained from the patient. Yes * Community resources currently utilized None * Additional services required to return to the preadmission environment? No * Can the patient safely return to the preadmission environment? Yes * Has this patient been hospitalized within the prior 30 days at any hospital? No Last DP export: 11/04/18 11:35 am Patient Name: SIDNEY KOWALSKI Page [phone] at 1243 All edits/amendments must be made on the electronic document DICTATION DATE: 11/04/181241 NETWORK ENGINEERING ADVISOR: MENG 11/04/18 1242 RPT#: [id number] DC DATE: STATUS: ADM IN [facility] [address] [place] [address] END OF REPORT
[2018-11-04 13:07] VITALS: BP 103/73
--- NOTE | 2018-11-04 14:15 | NUR ---
DISCHARGE INSTRUCTIONS GIVEN. PATIENT SAID THAT HE WOULD NOT SIGN ANYTHING UNTIL HIS MOM GOT HERE AND THAT HE WOULD SIGN THEM THEN. HE SAID HE WOULD TRY AND CALL HERE "IN A LITTLE WHILE". ALL ATTEMPTS TO REACH HER BY STAFF HAVE FAILED. CL IN REACH WCTM
--- NOTE | 2018-11-04 17:22 | NUR ---
PATIENT REFUSED TO SIGN DISCHARGE PAPERWORK. TOLD MOM AND BROTHER NOT TO SIGN PAPERWORK. SAID WE WOULD HEAR FROM HIS GOLF INSTRUCTOR. FAMILY WHEELED HIM DOWN AND ASSISTED TO CAR
--- NOTE | 2018-11-05 07:27 | MORECARE ---
CASE MANAGEMENT DISCHARGE SUMMARY PATIENT: SIDNEY KOWALSKI UNIT: [id number] ADM DATE: 11/02/18 AGE: 47 : 74 SEX: M ROOM/BED: D.2206 AUTHOR: MARIAN WALL PHYSICIAN: REFERRING PHYSICIAN: JUD PEREZ MD DATE OF SERVICE: 11/05/18 Discharge Plan Patient Name: SIDNEY KOWALSKI Facility: [facility]:[place] : 1970 Planned Disposition: Home Anticipated Discharge Date: Discharge Date: 11/04/2018 Expected LOS: 0 Initial Reviewer: [email or web address] Initial Review Date: 11/02/2018 Generated: 11/05/18 8:27 am Comments DCP- Discharge Planning Updated by [email or web address]: Flakita Bonner on 11/04/18 11:[address] Patient Name: SIDNEY KOWALSKI Admission Status: ER Accout number: [id number] Admission Date: 11-02-2018 : 1970 Admission Diagnosis:CELLULITIS OF LEFT LOWER LIMB Attending: JUD PEREZ Current LOS: 2 Anticipated DC Date: Planned Disposition: Home Primary Insurance: MEDICARE A & B Discharge Planning Comments: CM met with patient to complete initial dc planning assessment. CM educated patient on the CM role and verbal consent given by patient to complete assessment. Patient lives at home with his brother and mother, who is his primary healthcare sales representative. At discharge patient plans to return home and feels this is a safe discharge. CM discussed availability of home health, rehab services, and medical equipment. He does not want home health (and last admission had a hard time finding a HH who would take him, he has been fired by all) He stated that he has all the medical equipment he needs. I spoke to him about [place] choices, but he did know is he had that. Patient denied known discharge needs at this time. I have attempted to call his mother multiple times but her number is quick busy tone. CM will continue to follow and will assist as needed with dc plans/needs. Dip Painter: Flakita Bonner DCPIA - Discharge Planning Initial Assessment Updated by [id number]: Flakita Bonner on 11/04/18 12:34 pm * Is the patient Alert and Oriented? Yes * PCP none * Pharmacy doesn't know * Preadmission Environment Home with Family * ADLs Partial Dependent * Partial ADLs (Assistance needed) Ambulation Bathing Medication Management * Equipment Rolling Walker Shower Chair Wheelchair * List name and contact numbers for known caregivers / representatives who currently or will assist patient after discharge: Andressa (Mother) [phone] * Verbal permission to speak to the caregivers and representatives has been obtained from the patient. Yes * Community resources currently utilized None * Additional services required to return to the preadmission environment? No * Can the patient safely return to the preadmission environment? Yes * Has this patient been hospitalized within the prior 30 days at any hospital? No Last DP export: 11/04/18 11:43 am Patient Name: SIDNEY KOWALSKI Page [phone] at 0727 All edits/amendments must be made on the electronic document DICTATION DATE: 11/05/18725 MECHANISM ASSEMBLER: MENG 11/05/18725 RPT#: [id number] DC DATE:11/04/18 STATUS: DIS IN [facility] [address] [place] [address] END OF REPORT
== END 2018-11-04 17:23 | disposition home or self-care (01) | DRG 603 ==
LOC: D.ER 18:49 → D.MS 22:36
PROVIDERS: Family Medicine; ADMIT Emergency Medicine; ATTEND Emergency Medicine
DX: L03.116 Cellulitis of left lower limb (principal); G82.22 Paraplegia, incomplete; N39.0 Urinary tract infection, site not specified; L03.115 Cellulitis of right lower limb; B85.0 Pediculosis due to Pediculus humanus capitis; K21.9 Gastro-esophageal reflux disease without esophagitis; E87.6 Hypokalemia; D50.9 Iron deficiency anemia, unspecified

== ENCOUNTER 2019-03-05 16:18 | Emergency (ER) | payer MEDICARE ==
[2018-11-03 12:39] VITALS: Ht 180.3 cm; Wt 97.7 kg
[~2019-03-05] VITALS: Ht 180.3 cm; Wt 97.7 kg
[~2019-03-05 16:18] MED LIST changes: +FLORAJEN3 CAPS460 MG PO; +PERMETHRIN60 GM TOPICAL
[2019-03-05 21:37] VITALS: BP 123/77
== END 2019-03-05 21:37 | disposition home or self-care (01) ==
LOC: D.ER 16:18
DX: G82.20 Paraplegia, unspecified (principal); I70.249 Atherosclerosis of native arteries of left leg with ulceration of unspecified site; I70.239 Atherosclerosis of native arteries of right leg with ulceration of unspecified site; Z79.01 Long term (current) use of anticoagulants; Z86.718 Personal history of other venous thrombosis and embolism; Z86.73 Personal history of transient ischemic attack (TIA), and cerebral infarction without residual deficits

== ENCOUNTER 2019-10-01 07:44 | Inpatient (IN) | payer MEDICARE ==
[~2019-10-01] VITALS: Ht 180.3 cm; Wt 97.1 kg
[2019-10-01 08:24] LABS: BASOPHILS 0.6 % (0-2); EOSINOPHILS 3.7 % (0-7); HEMATOCRIT 43.4 % (42.0-54.0); HEMOGLOBIN 13.9 g/dL (13.5-17.5); IMMATURE GRANULOCYTES 0.5 % (0-5); LYMPHOCYTES 12.9 % (15-50); MCH 29.5 pg (26.0-34.0); MCV 92.1 fL (80.0-100.0); MEAN PLATELET VOLUME 8.7 fL (7.4-10.4); MONOCYTES 10.8 % (2-11); NEUTROPHILS 71.5 % (40-80); PLATELET COUNT 226 10x3/uL (130-400); RBC 4.71 10x6/uL (4.20-6.10); RDW 14.1 % (11.5-14.5); WBC 7.8 10x3/uL (4.8-10.8)
[2019-10-01 08:33] LABS: CALC OSMOLALITY 272 mosm/kg (275-300); CALCIUM 8.5 mg/dL (8.5-10.1); CHLORIDE - SERUM 101 mmol/L (98-107); GLUCOSE 90 mg/dL (74-106); POTASSIUM - SERUM 4.1 mmol/L (3.5-5.1); SODIUM 136 mmol/L (136-145); UREA NITROGEN 15 mg/dL (7-18); eGFR NON AFRICAN AMERICAN 85 mL/min (90-120)
[2019-10-01 08:38] LABS: ALBUMIN 3.3 g/dL (3.4-5.0); ALKALINE PHOSPHATASE 152 U/L (30-120); ALT (SGPT) 21 U/L (10-68); BILIRUBIN - TOTAL 0.36 mg/dL (0.2-1.3); PROTEIN - SERUM 7.2 g/dL (6.4-8.2)
--- NOTE | 2019-10-01 09:06 | NUR ---
ELEVATED LACTIC ACID CALLED BY FORESTRY PROFESSOR SERGIO AT THIS TIME. CRITICAL RESULT IS 2.2. NOTIFIED AND RN
[2019-10-01 11:28] VITALS: BP 158/96
--- NOTE | 2019-10-01 13:43 | NUR ---
ARRIVES TO UNIT PER STRETCHER, IV INFUSING PER L HAND, EDEMA TO LOWER LEGS 3+, C/O PAIN, CONT TO MONITOR
[2019-10-01 13:58] VITALS: BP 154/92
[2019-10-01 17:05] VITALS: BP 131/79
[2019-10-01 20:15] VITALS: BP 116/70
--- NOTE | 2019-10-01 22:00 | NUR ---
WATCHING TV QUEITLY WITH NO DISTRESS NOTED. RESP UNLAOBRED. IV TO LFA INTACT WITHOUT REDNESS OR EDEMA NOTED. CL IN REACH
[2019-10-02] VITALS (7 sets, daily range): BP systolic 106–146; BP diastolic 72–95
--- NOTE | 2019-10-02 03:45 | NUR ---
I have reviewed this patient and I concur with the Shift Assessment completed by the Licensed Practical Nurse today this shift.
[2019-10-02 07:02] LABS: BASOPHILS 0.6 % (0-2); EOSINOPHILS 3.8 % (0-7); HEMATOCRIT 40.1 % (42.0-54.0); IMMATURE GRANULOCYTES 1.3 % (0-5); LYMPHOCYTES 16.1 % (15-50); MCH 29.5 pg (26.0-34.0); MCHC 32.4 g/dL (31.0-37.0); MCV 91.1 fL (80.0-100.0); MEAN PLATELET VOLUME 9.4 fL (7.4-10.4); MONOCYTES 9.5 % (2-11); NEUTROPHILS 68.7 % (40-80); PLATELET COUNT 241 10x3/uL (130-400); RDW 14.1 % (11.5-14.5); WBC 7.2 10x3/uL (4.8-10.8)
[2019-10-02 07:04] LABS: APTT 28.1 SECONDS (22.8-39.4); INR 0.93 (0.85-1.17); PROTIME 12.5 SECONDS (11.6-15.0)
[2019-10-02 07:23] LABS: CALC OSMOLALITY 266 mosm/kg (275-300); CALCIUM 8.1 mg/dL (8.5-10.1); CARBON DIOXIDE 27.5 mmol/L (21.0-32.0); CHLORIDE - SERUM 103 mmol/L (98-107); CREATININE - SERUM 0.9 mg/dL (0.6-1.3); GLUCOSE 101 mg/dL (74-106); MAGNESIUM - SERUM 2.1 mg/dL (1.8-2.4); POTASSIUM - SERUM 4.4 mmol/L (3.5-5.1); SODIUM 133 mmol/L (136-145); UREA NITROGEN 14 mg/dL (7-18); eGFR NON AFRICAN AMERICAN > 90 mL/min (90-120)
--- NOTE | 2019-10-02 07:39 | NUR ---
HE IS AWAKE, TALKING. HE C/O PAIN 10/, HE HAS A BLISTER ON HIS LEFT THIGH,(HE POPPED IT, WHILE I WAS IN HIS ROOM). HE HAS AN ABRASION OR SORE ON HIS THOMAS AREA. HIS LEGS/FEET ARE SWOLLEN BILATERALLY. THE CALL LIGHT IS WITHIN REACH AND THE BED ALARM ON.
[2019-10-02 08:13] LABS: BILIRUBIN NEGATIVE (NEGATIVE); GLUCOSE NEGATIVE (NEGATIVE); KETONE NEGATIVE (NEGATIVE); NITRITE NEGATIVE (NEGATIVE); SPECIFIC GRAVITY 1.005 (1.005-1.020); UROBILINOGEN NORMAL (NORMAL)
[2019-10-02 08:15] LABS: BACTERIA FEW /hpf (NEGATIVE); RED CELLS - URINE 0-5 /hpf (0-5); WHITE CELLS - URINE 0-5 /hpf (NEGATIVE)
--- NOTE | 2019-10-02 15:00 | NUR ---
HE PULLED HIS IV OUT TRYING TO CLIMB OUT OF BED, HE WAS USING HIS ARMS TO MOVE HIS LEG OVER TO THE SIDE OF THE BED. HE DOES NOT WANT THE OVER LAY ON HIS BED. HE IS YELLING AND CURSING AT THE TECH BECAUSE SHE TOLD HIM HE HAD TO HAVE IT ON THE BED. HE STATES "IF I HAVE TO HAVE IT ON HERE I WILL GO HOME", I TOLD HIM IT WAS OK AND WE WOULD REMOVE IT. HE CALMED DOWN AFTER I TOLD HIM THAT AND WE REMOVED THE OVER LAY FROM HIS MATTRESS. THE CALL LIGHT IS WITHIN REACH. GOING TO THE LAB TO GET THE VEIN FINDER.
--- NOTE | 2019-10-02 15:46 | NUR ---
NEW IV STARTED TO THE RFA.
--- NOTE | 2019-10-02 19:24 | NUR ---
PATIENT RESTING IN BED WITH NO S/S OF DISTRESS. PATIENT DENIES NEEDS. BED IN LOWEST POSITION AND CALL LIGHT WITHIN REACH. ENCOURAGED THE PATIENT TO CALL IF HE HAS NEEDS. WILL CONTINUE TO MONITOR.
[2019-10-03 04:00] VITALS: BP 124/77
--- NOTE | 2019-10-03 07:05 | NUR ---
A&O RESTING IN BED WITH EYES OPEN. NO C/O PAIN. NO S/S OF ACUTE DISTRESS NOTED. BLE CELLULITIS. PARAPLEGIC. IV TO RIGHT FOREARM, NS INFUSING @ 75ML/HR. SITE PATENT WITHOUT REDNESS OR SWELLING. DENIES ANY NEEDS AT THIS TIME. CALL LIGHT IN REACH. WILL CONTINUE TO MONITOR.
[2019-10-03 09:12] VITALS: BP 121/62
[2019-10-03 09:31] LABS: CALC OSMOLALITY 269 mosm/kg (275-300); CALCIUM 8.2 mg/dL (8.5-10.1); CARBON DIOXIDE 31.3 mmol/L (21.0-32.0); CHLORIDE - SERUM 101 mmol/L (98-107); CREATININE - SERUM 0.8 mg/dL (0.6-1.3); GLUCOSE 100 mg/dL (74-106); PHOSPHOROUS 2.8 mg/dL (2.5-4.9); SODIUM 135 mmol/L (136-145); UREA NITROGEN 13 mg/dL (7-18); eGFR NON AFRICAN AMERICAN > 90 mL/min (90-120)
[2019-10-03 09:41] LABS: HEMATOCRIT 40.6 % (42.0-54.0); HEMOGLOBIN 12.9 g/dL (13.5-17.5); MCH 29.4 pg (26.0-34.0); MCHC 31.8 g/dL (31.0-37.0); MCV 92.5 fL (80.0-100.0); PLATELET COUNT 229 10x3/uL (130-400); RBC 4.39 10x6/uL (4.20-6.10); RDW 14.2 % (11.5-14.5)
[2019-10-03 10:52] LABS: LYMPHOCYTES 11 % (15-50); MONOCYTES 6 % (2-11); NEUTROPHILS 83 % (40-80)
[2019-10-03 10:53] LABS: PLATELET ESTIMATE NORMAL
--- NOTE | 2019-10-03 11:21 | NUR ---
I have reviewed this patient and I concur with the Shift Assessment completed by the Licensed Practical Nurse today this shift.
[2019-10-03 12:38] VITALS: BP 120/74
[2019-10-03 13:36] VITALS: Ht 180.3 cm; Wt 97.1 kg
[2019-10-03 16:55] VITALS: BP 114/68
--- NOTE | 2019-10-03 18:30 | NUR ---
RESTING IN BED WITH EYES OPEN. NO C/O PAIN. NO S/S OF ACUTE DISTRESS NOTED. DENIES ANY NEEDS AT THIS TIME. CALL LIGHT IN REACH. WILL CONTINUE TO MONITOR.
--- NOTE | 2019-10-03 19:26 | NUR ---
PATIENT RESTING IN BED WITH NO S/S OF DISTRESS AND DENIES NEEDS AT THIS TIME. BED IN LOWEST POSITION AND CALL LIGHT WITHIN REACH. ENCOURAGED THE PATIENT TO CALL IF HE HAS NEEDS. WILL CONTINUE TO MONITOR.
[2019-10-03 20:00] VITALS: BP 111/67
--- NOTE | 2019-10-03 20:58 | NUR ---
ADMINISTERED MEDS PER ORDERS. DENIES NEEDS AT THIS TIME. WILL CONTINUE TO MONITOR.
[2019-10-03 23:32] VITALS: BP 119/75
[2019-10-04 04:00] VITALS: BP 115/60
[2019-10-04 07:20] LABS: CALC OSMOLALITY 269 mosm/kg (275-300); CALCIUM 7.9 mg/dL (8.5-10.1); CARBON DIOXIDE 27.8 mmol/L (21.0-32.0); CHLORIDE - SERUM 102 mmol/L (98-107); CREATININE - SERUM 0.7 mg/dL (0.6-1.3); GLUCOSE 98 mg/dL (74-106); PHOSPHOROUS 2.6 mg/dL (2.5-4.9); POTASSIUM - SERUM 4.1 mmol/L (3.5-5.1); SODIUM 135 mmol/L (136-145); UREA NITROGEN 13 mg/dL (7-18); eGFR NON AFRICAN AMERICAN > 90 mL/min (90-120)
[2019-10-04 07:59] LABS: BASOPHILS 0.3 % (0-2); EOSINOPHILS 3.5 % (0-7); HEMATOCRIT 38.4 % (42.0-54.0); HEMOGLOBIN 12.2 g/dL (13.5-17.5); IMMATURE GRANULOCYTES 0.6 % (0-5); LYMPHOCYTES 9.7 % (15-50); MCH 29.2 pg (26.0-34.0); MCHC 31.8 g/dL (31.0-37.0); MCV 91.9 fL (80.0-100.0); MEAN PLATELET VOLUME 9.5 fL (7.4-10.4); MONOCYTES 10.1 % (2-11); NEUTROPHILS 75.8 % (40-80); RBC 4.18 10x6/uL (4.20-6.10); RDW 14.5 % (11.5-14.5); WBC 7.1 10x3/uL (4.8-10.8)
[2019-10-04 08:04] LABS: PLATELET COUNT 176 10x3/uL (130-400)
[2019-10-04 08:45] VITALS: BP 123/75
--- NOTE | 2019-10-04 08:58 | NUR ---
PT ALERT X 4. BREATH SOUNDS CLEAR BILAT. IV TO RIGHT FOREARM, PATENT, DRESSING CDI. PT REPORTING PAIN OF 10/10, NO MEDICATION AVAILABLE AT THIS TIME. REDDENED OPEN WOUND TO RIGHT UPPER THIGH. JOAQUINA TO BLE. BED LOW, CALL LIGHT IN REACH. NO OTHER NEEDS AT THIS TIME.
[2019-10-04] MEDS ORDERED: FLORAJEN3 CAPS460 MG PO (09:47)
[2019-10-04] MEDS ORDERED: XARELTO15 MG PO (09:47)
[2019-10-04] MEDS ORDERED: CLEOCIN HCL300 MG PO (09:48)
[2019-10-04 14:25] VITALS: BP 118/67
[2019-10-04 18:33] VITALS: BP 159/72
[2019-10-04 20:00] VITALS: BP 119/74
[2019-10-05] VITALS: BP 107/71
[2019-10-05 04:00] VITALS: BP 115/66; BP 175/75
--- NOTE | 2019-10-05 05:11 | NUR ---
I have reviewed this patient and I concur with the Shift Assessment completed by the Licensed Practical Nurse today this shift.
[2019-10-05 06:06] LABS: BASOPHILS 0.4 % (0-2); EOSINOPHILS 6.5 % (0-7); HEMATOCRIT 37.8 % (42.0-54.0); HEMOGLOBIN 11.9 g/dL (13.5-17.5); IMMATURE GRANULOCYTES 0.5 % (0-5); LYMPHOCYTES 17.6 % (15-50); MCHC 31.5 g/dL (31.0-37.0); MEAN PLATELET VOLUME 9.3 fL (7.4-10.4); MONOCYTES 11.3 % (2-11); NEUTROPHILS 63.7 % (40-80); PLATELET COUNT 180 10x3/uL (130-400); RBC 4.11 10x6/uL (4.20-6.10); RDW 14.7 % (11.5-14.5); WBC 5.6 10x3/uL (4.8-10.8)
[2019-10-05 06:16] LABS: CALC OSMOLALITY 278 mosm/kg (275-300); CALCIUM 7.9 mg/dL (8.5-10.1); CARBON DIOXIDE 28.1 mmol/L (21.0-32.0); CHLORIDE - SERUM 106 mmol/L (98-107); CREATININE - SERUM 0.7 mg/dL (0.6-1.3); GLUCOSE 97 mg/dL (74-106); PHOSPHOROUS 2.8 mg/dL (2.5-4.9); POTASSIUM - SERUM 4.4 mmol/L (3.5-5.1); SODIUM 139 mmol/L (136-145); UREA NITROGEN 15 mg/dL (7-18); eGFR NON AFRICAN AMERICAN > 90 mL/min (90-120)
--- NOTE | 2019-10-05 09:34 | NUR ---
PT ALERT X 4. PARAPLEGIC. BREATH SOUNDS DIMINISHED TO LOWER LOBES, ENCOURAGED USE OF INCENTIVE SPIROMETER, INSTRUCTED PT ON USE. GENERALIZED EDEMA. PT REPORTING NO BM SINCE ADMISSION, BOWEL SOUNDS HYPO ALL WONG, WILL ADDRESS WITH DOCTOR. IV TO RIGHT FOREARM, PATENT, DRESSING CDI. JOAQUINA WRAPS TO BLE. PT REPORTING PAIN OF 10/10, MEDICATED PER ORDERS, WILL CONTINUE TO MONITOR. BED LOW, CALL LIGHT IN REACH. NO OTHER NEEDS AT THIS TIME.
[2019-10-05 09:50] VITALS: BP 137/89
--- NOTE | 2019-10-05 13:03 | MORECARE ---
CASE MANAGEMENT DISCHARGE SUMMARY PATIENT: SIDNEY KOWALSKI UNIT: [id number] ADM DATE: 10/01/19 AGE: 48 : 74 SEX: M ROOM/BED: D.2219 AUTHOR: MARIAN WALL PHYSICIAN: REFERRING PHYSICIAN: BLANCO RIVERA MD DATE OF SERVICE: 10/05/19 Discharge Plan Patient Name: SIDNEY KOWALSKI Facility: [facility]:[place] : 1970 Planned Disposition: Home or Self Care Anticipated Discharge Date: Discharge Date: Expected LOS: Initial Reviewer: [email or web address] Initial Review Date: 10/01/2019 Generated: 10/05/19 2:03 pm DCPIA - Discharge Planning Initial Assessment Updated by [email or web address]: Flakita Bonner on 10/05/19 1:00 pm * Is the patient Alert and Oriented? Yes * PCP none * [facility] * Preadmission Environment Home with Family * ADLs Partial Dependent * Equipment Wheelchair * List name and contact numbers for known caregivers / representatives who currently or will assist patient after discharge: candido (mom) [phone] * Verbal permission to speak to the caregivers and representatives has been obtained from the patient. N/A * Community resources currently utilized None * Additional services required to return to the preadmission environment? No * Can the patient safely return to the preadmission environment? Yes * Has this patient been hospitalized within the prior 30 days at any hospital? No Patient Name: SIDNEY KOWALSKI Page [phone] at 1303 All edits/amendments must be made on the electronic document DICTATION DATE: 10/05/19 1303 CEMETERY LABORER: MENG 10/05/19 1303 RPT#: [id number] DC DATE: STATUS: ADM IN [facility] [address] [place] [address] END OF REPORT
--- NOTE | 2019-10-05 13:17 | MORECARE ---
CASE MANAGEMENT DISCHARGE SUMMARY PATIENT: SIDNEY KOWALSKI UNIT: [id number] ADM DATE: 10/01/19 AGE: 48 : 74 SEX: M ROOM/BED: D.2213 AUTHOR: MARIAN WALL PHYSICIAN: REFERRING PHYSICIAN: BLANCO RIVERA MD DATE OF SERVICE: 10/05/19 Discharge Plan Patient Name: SIDNEY KOWALSKI Facility: [facility]:[place] : 1970 Planned Disposition: Home or Self Care Anticipated Discharge Date: Discharge Date: Expected LOS: Initial Reviewer: [email or web address] Initial Review Date: 10/01/2019 Generated: 10/05/19 2:17 pm Comments DCP- Discharge Planning Updated by [email or web address]: Flakita Bonner on 10/05/19 12:[address] Patient Name: SIDNEY KOWALSKI Admission Status: ER Accout number: [id number] Admission Date: 10-01-2019 : 1970 Admission Diagnosis:OTHER SPECIFIED SOFT TISSUE DISORDERS Attending: TRISTIN Current LOS: 4 Anticipated DC Date: Planned Disposition: Home or Self Care Primary Insurance: MEDICARE A & B Discharge Planning Comments: CM met with patient to complete initial dc planning assessment. CM educated patient on the CM role and verbal consent given by patient to complete assessment. Patient lives at home with his mom who is his caregiver. At discharge patient plans to return home. CM discussed availability of home health, rehab services, and medical equipment. He does not have a PCP, he does have a wheelchair. I explained the IMM to the patient and he would not sign it. I left him a copy of the IMM. I have provided a Xarelto Coupon for the patient to use. I spoke with his mom about his discharge, she stated that she will be here at 1600 to pick him up. CM will continue to follow and will assist as needed with dc plans/needs. Hand I Blocker: Flakita Bonner DCPIA - Discharge Planning Initial Assessment Updated by [email or web address]: Flakita Bonner on 10/05/19 1:00 pm * Is the patient Alert and Oriented? Yes * PCP none * [facility] * Preadmission Environment Home with Family * ADLs Partial Dependent * Equipment Wheelchair * List name and contact numbers for known caregivers / representatives who currently or will assist patient after discharge: candido (mom) [phone] * Verbal permission to speak to the caregivers and representatives has been obtained from the patient. N/A * Community resources currently utilized None * Additional services required to return to the preadmission environment? No * Can the patient safely return to the preadmission environment? Yes * Has this patient been hospitalized within the prior 30 days at any hospital? No Coverage Notice Reviewer: [email or web address] Ela Bonner Notice Issued Date-Time: 10/05/2019 13:00 Notice Type: IM Discharge Notice Notice Delivered To: Patient Relationship to Patient: Miller Apprentice Name: Delivery Method: - Daniella Days: Prior Verbal Notification: Recipient Understood Notice: Yes Recipient Signature: Med Rec Note Co-signed by Attending: Coverage Notice Comment: would not sign the IMM I verbally explained to him and left copy with him Last DP export: 10/05/19 12:03 pm Patient Name: SIDNEY KOWALSKI Page [phone] at 1317 All edits/amendments must be made on the electronic document DICTATION DATE: 10/05/19 1317 TRIBAL DELEGATE: MENG 10/05/19 1317 RPT#: [id number] DC DATE: STATUS: ADM IN [facility] [address] [place] [address] END OF REPORT
[2019-10-05 13:28] VITALS: BP 130/79
--- NOTE | 2019-10-05 16:51 | NUR ---
PT WOULD NOT SIGN DISCHARGE PAPERWORK, SAID HIS MOM COULD SIGN FOR HIM. DISCUSSED DISCHARGE INSTRUCTIONS AND ANSWERED ALL QUESTIONS. IV TO RIGHT FOREARM DC'D, TIP INTACT, PRESSURE DRESSING APPLIED. PT TRANSFERRED SELF TO WHEELCHAIR. ESCORTED OUT.
--- NOTE | 2019-10-05 17:16 | MORECARE ---
CASE MANAGEMENT DISCHARGE SUMMARY PATIENT: SIDNEY OKWALSKI UNIT: [id number] ADM DATE: 10/01/19 AGE: 48 : 74 SEX: M ROOM/BED: D.2219 AUTHOR: MARIAN WALL PHYSICIAN: REFERRING PHYSICIAN: BLANCO RIVERA MD DATE OF SERVICE: 10/05/19 Discharge Plan Patient Name: SIDNEY KOWALSKI Facility: [facility]:[place] : 1970 Planned Disposition: Home or Self Care Anticipated Discharge Date: Discharge Date: 10/05/2019 Expected LOS: Initial Reviewer: [email or web address] Initial Review Date: 10/01/2019 Generated: 10/05/19 6:15 pm Comments DCP- Discharge Planning Updated by [email or web address]: Flakita Bonner on 10/05/19 12:[address] Patient Name: SIDNEY KOWALSKI Admission Status: ER Accout number: [id number] Admission Date: 10-01-2019 : 1970 Admission Diagnosis:OTHER SPECIFIED SOFT TISSUE DISORDERS Attending: TRISTIN Current LOS: 4 Anticipated DC Date: Planned Disposition: Home or Self Care Primary Insurance: MEDICARE A & B Discharge Planning Comments: CM met with patient to complete initial dc planning assessment. CM educated patient on the CM role and verbal consent given by patient to complete assessment. Patient lives at home with his mom who is his caregiver. At discharge patient plans to return home. CM discussed availability of home health, rehab services, and medical equipment. He does not have a PCP, he does have a wheelchair. I explained the IMM to the patient and he would not sign it. I left him a copy of the IMM. I have provided a Xarelto Coupon for the patient to use. I spoke with his mom about his discharge, she stated that she will be here at 1600 to pick him up. CM will continue to follow and will assist as needed with dc plans/needs. Foundry Molder: Flakita Bonner DCPIA - Discharge Planning Initial Assessment Updated by [email or web address]: Flakita Bonner on 10/05/19 1:00 pm * Is the patient Alert and Oriented? Yes * PCP none * [facility] * Preadmission Environment Home with Family * ADLs Partial Dependent * Equipment Wheelchair * List name and contact numbers for known caregivers / representatives who currently or will assist patient after discharge: candido (mom) [phone] * Verbal permission to speak to the caregivers and representatives has been obtained from the patient. N/A * Community resources currently utilized None * Additional services required to return to the preadmission environment? No * Can the patient safely return to the preadmission environment? Yes * Has this patient been hospitalized within the prior 30 days at any hospital? No Coverage Notice Reviewer: [email or web address] Ela Bonner Notice Issued Date-Time: 10/05/2019 13:00 Notice Type: IM Discharge Notice Notice Delivered To: Patient Relationship to Patient: Apparel Designer Name: Delivery Method: - Daniella Days: Prior Verbal Notification: Recipient Understood Notice: Yes Recipient Signature: Med Rec Note Co-signed by Attending: Coverage Notice Comment: would not sign the IMM I verbally explained to him and left copy with him Last DP export: 10/05/19 12:17 pm Patient Name: SIDNEY KOWALSKI Page [phone] at 1716 All edits/amendments must be made on the electronic document DICTATION DATE: 10/05/191714 TRAINING AND DEVELOPMENT REP: MENG 10/05/191714 RPT#: [id number] DC DATE:10/05/19 STATUS: DIS IN [facility] [address] [place] [address] END OF REPORT
== END 2019-10-05 17:00 | disposition home or self-care (01) | DRG 872 ==
LOC: D.ER 07:44 → D.MS 11:28
PROVIDERS: Family Medicine; ADMIT Family Medicine; ATTEND Family Medicine
DX: A41.9 Sepsis, unspecified organism (principal); L03.115 Cellulitis of right lower limb; G82.20 Paraplegia, unspecified; Z86.73 Personal history of transient ischemic attack (TIA), and cerebral infarction without residual deficits; Z86.718 Personal history of other venous thrombosis and embolism; Z79.01 Long term (current) use of anticoagulants

== ENCOUNTER 2019-10-15 23:22 | Observation (INO) | payer MEDICARE ==
[~2019-10-15] VITALS: Ht 180.3 cm; Wt 97.7 kg
[~2019-10-15 23:22] MED LIST changes: +XARELTO15 MG PO
[2019-10-15 23:44] LABS: BASOPHILS 0.4 % (0-2); EOSINOPHILS 5.3 % (0-7); HEMATOCRIT 38.4 % (42.0-54.0); HEMOGLOBIN 12.2 g/dL (13.5-17.5); IMMATURE GRANULOCYTES 0.6 % (0-5); LYMPHOCYTES 13.4 % (15-50); MCH 29.4 pg (26.0-34.0); MCHC 31.8 g/dL (31.0-37.0); MCV 92.5 fL (80.0-100.0); MEAN PLATELET VOLUME 9.7 fL (7.4-10.4); MONOCYTES 11.3 % (2-11); PLATELET COUNT 170 10x3/uL (130-400); RBC 4.15 10x6/uL (4.20-6.10); RDW 14.4 % (11.5-14.5); WBC 8.3 10x3/uL (4.8-10.8)
[2019-10-15 23:56] LABS: CALC OSMOLALITY 278 mosm/kg (275-300); CALCIUM 8.5 mg/dL (8.5-10.1); CARBON DIOXIDE 29.8 mmol/L (21.0-32.0); CHLORIDE - SERUM 105 mmol/L (98-107); CREATININE - SERUM 0.7 mg/dL (0.6-1.3); GLUCOSE 98 mg/dL (74-106); POTASSIUM - SERUM 4.1 mmol/L (3.5-5.1); SODIUM 139 mmol/L (136-145); UREA NITROGEN 14 mg/dL (7-18); eGFR NON AFRICAN AMERICAN > 90 mL/min (90-120)
[2019-10-16 00:08] LABS: ALBUMIN 3.2 g/dL (3.4-5.0); ALKALINE PHOSPHATASE 151 U/L (30-120); ALT (SGPT) 16 U/L (10-68); BILIRUBIN - TOTAL 0.28 mg/dL (0.2-1.3); C-REACTIVE PROTEIN 2.1 mg/dL (0.0-0.9); CREATINE KINASE 93 UL (21-232); LIPASE 72 U/L (73-393); MAGNESIUM - SERUM 2.1 mg/dL (1.8-2.4); PRO BNP 57 pg/mL (0-125); PROTEIN - SERUM 6.9 g/dL (6.4-8.2); THYROID STIMULATING HORMONE 0.76 uIU/mL (0.36-3.74); TROPONIN-I < 0.017 ng/mL (0.000-0.060)
--- NOTE | 2019-10-16 01:04 | NUR ---
PT ARRIVED VIA STRETCHER TO ROOM 210. NO DISTRESS NOTED.
[2019-10-16] MEDS ORDERED: XARELTO15 MG PO (01:21)
[2019-10-16] MEDS ORDERED: CLINDAMYCIN HC300 MG PO (01:21)
[2019-10-16] MEDS ORDERED: FLORAJEN3 CAPS460 MG PO (01:22)
[2019-10-16 01:24] VITALS: BP 144/86; Ht 180.3 cm; Wt 97.7 kg
--- NOTE | 2019-10-16 01:42 | NUR ---
ADMISSION ASESSMENT, HISTORY AND HOME MEDS LIST COMPLETED. PTSTATES HE HAS NOT TAKEN ANY OF HIS MEDS SINCE [facility] BROUGHT RX BOTTLES TO ER. WHEN ASK WHY HE DID NOT TAKE THEM HE SHRUGGED AND STATED HE DIDN'T KNOW. PT ALERT AND ORIENTED TO PERSON, PLACE AND TIME. PT IS A PARAPALEGIC. IV TO R HAND SL. LUNGS DIMINISHED IN BASES BILAT. FEET AND LOWER LEGS WITH 1+PTIING EDEMA, RED AND WARM TO TOUCH. SEVERAL SMALL SORES NOTED. PT HAS VERY POOR HYGEINE. GROUND IN DIRT NOTED TO BILAT FEET. MOTHER AT BEDSIDE. SR UP X2,CALL LIGHT WITHIN REACH.
--- NOTE | 2019-10-16 02:39 | NUR ---
PT BATHED. PT TOLERATED ACTIVITY WELL.
--- NOTE | 2019-10-16 03:03 | NUR ---
PT HAS C/O PAIN TO HIS FEET. INFORMED PT THAT HAVE NO ORDERS FOR PAIN MEDS. [facility] PAGED AT [phone].
--- NOTE | 2019-10-16 03:10 | NUR ---
Jennifer DAVIES RETURNS PAGE. INFORMED OF PT'S C/O SEVERE PAIN TO FEET. NEW ORDERS RECEIVED AND NOTED.
--- NOTE | 2019-10-16 03:31 | NUR ---
[facility] 5/325 PO GIVEN FOR C/O BILAT FOOT PAIN.
[2019-10-16 04:00] VITALS: BP 107/59
--- NOTE | 2019-10-16 04:20 | NUR ---
PT STATES FOOT PAIN STILL 11/06. URINE SENT OT LAB.
[2019-10-16 04:29] LABS: BILIRUBIN NEGATIVE (NEGATIVE); GLUCOSE NEGATIVE (NEGATIVE); KETONE NEGATIVE (NEGATIVE); NITRITE NEGATIVE (NEGATIVE); UROBILINOGEN NORMAL (NORMAL)
--- NOTE | 2019-10-16 06:14 | NUR ---
VSS SINCE ADMISSION. PT STATES [facility] DID NOT TOUCH HIS PAIN. WILLCONTINUE TO MONITOR.
--- NOTE | 2019-10-16 07:20 | NUR ---
RECIEVE REPORT. SITTING UP IN BED. ALERT AND ORIENTED X4. FAMILY AT BEDSIDE. NO SIGNS OF DISTRESS. DENIES ANY NEEDS. CONTINUE PLAN OF CARE AND SAFETY PRECAUTIONS.
[2019-10-16 08:00] VITALS: BP 118/60
--- NOTE | 2019-10-16 09:59 | NUR ---
WHEN GIVING PAIN MEDICATION PATIENT STATES I DONT WANT TO GET SICK ON AN EMPTY STOMACH. PATIENTS STATES MOTHER ATE HIS BREAKFAST TRAY. OFFER SNACK. DENIES ANY OTHER NEEDS AT THIS TIME.
[2019-10-16 11:00] VITALS: BP 100/58
[2019-10-16 15:00] VITALS: BP 117/72
[2019-10-16 20:00] VITALS: BP 105/65
--- NOTE | 2019-10-16 20:00 | NUR ---
INITAIL ROUNDS COMPLETED AT 1910 HRS. PT RESTING WITH EYES CLOSED. RESP EVEN AND REGULAR. ASSESSMENT COMPLETED AT 1940 HRS. ALERT AND ORIENTED TO PERSON, PLACE AND TIME. PT IS A PARAPALEGIC. LUNGS ESSENTIALLY CTA. ABD SOFT WITH ACTIVE BS NOTED. NUMEROUS SORES, SCRATCHES NOTED TO ABD AND HIPS. LOWER EXTREMITIES RED WITH NUMEROUS SMALL SORES. 1+ PITTING EDEMA. IV TO R HANDSL. SR UP X2,CALL LIGHT WITHIN REACH.
--- NOTE | 2019-10-16 22:34 | NUR ---
NORCO 10/325 PO GIVEN FOR C/O FOOT PAIN 01/06. WILL CONTINUE TO MONITOR.
--- NOTE | 2019-10-16 23:48 | NUR ---
LASIX 40MG SIVP GIVEN PER ORDERS. NO DISTRSS NOTED. CALL LIGHT WITHIN REACH.
[2019-10-17] VITALS: BP 108/65
--- NOTE | 2019-10-17 01:50 | NUR ---
PT AWAKE DRINKING COFFEE. NO DISTRESS NOTED. CALL LIGHT WITHIN REACH.
[2019-10-17 04:00] VITALS: BP 102/54
--- NOTE | 2019-10-17 04:23 | NUR ---
PT RESTING WITH EYES CLOSED. RESP EVEN AND REGULAR. SR UP X2,CALL LIGHT WITHIN REACH.
--- NOTE | 2019-10-17 05:50 | NUR ---
VSS THROUGHOUT NIGHT. PT STATES NORCO 10/325 DOES NOT TOUCH HIS PAIN. RESTED WELL DURING SHIFT. NEEDS MET; WILL CONTINUE TO MONITOR.
--- NOTE | 2019-10-17 07:46 | NUR ---
RECIEVE REPORT. PATIENT LYING IN BED. ALERT AND ORIENTED X4. DENIES ANY NEEDS AT THIS TIME. CONTINUE PLAN OF CARE AND USE OF SAFETY PRECAUTIONS.
[2019-10-17 08:10] VITALS: BP 99/59
--- NOTE | 2019-10-17 10:49 | NUR ---
MEPILEX DRESSING PLACED ON RIGHT POSTERIOR UPPER LEG OVER SKIN BREAKDOWN. LINEN CHANGED AND BED BATH GIVEN. CALL LIGHT IN REACH. PATIENT DENIES ANY NEEDS AT THIS TIME.
[2019-10-17 11:24] VITALS: BP 107/73
[2019-10-17] MEDS ORDERED: HYDROCODON-ACE1 EA10 PO (13:10)
[2019-10-17] MEDS ORDERED: HCTZ25 MG PO (13:11)
[2019-10-17] MEDS ORDERED: CALMOSEPTINE OI71 GM TOPICAL (13:17)
[2019-10-17 13:30] LABS: BASOPHILS 0.3 % (0-2); HEMATOCRIT 40.3 % (42.0-54.0); HEMOGLOBIN 12.8 g/dL (13.5-17.5); IMMATURE GRANULOCYTES 0.4 % (0-5); LYMPHOCYTES 20.2 % (15-50); MCHC 31.8 g/dL (31.0-37.0); MCV 91.2 fL (80.0-100.0); MEAN PLATELET VOLUME 8.9 fL (7.4-10.4); MONOCYTES 9.7 % (2-11); NEUTROPHILS 64.4 % (40-80); RBC 4.42 10x6/uL (4.20-6.10); RDW 14.5 % (11.5-14.5); WBC 7.8 10x3/uL (4.8-10.8)
[2019-10-17 13:43] LABS: PLATELET COUNT 271 10x3/uL (130-400)
[2019-10-17 13:50] LABS: CALCIUM 8.7 mg/dL (8.5-10.1); CARBON DIOXIDE 34.4 mmol/L (21.0-32.0); CHLORIDE - SERUM 100 mmol/L (98-107); GLUCOSE 126 mg/dL (74-106); POTASSIUM - SERUM 3.8 mmol/L (3.5-5.1); SODIUM 137 mmol/L (136-145)
[2019-10-17 13:52] LABS: CALC OSMOLALITY 278 mosm/kg (275-300); CREATININE - SERUM 0.9 mg/dL (0.6-1.3); UREA NITROGEN 22 mg/dL (7-18); eGFR NON AFRICAN AMERICAN > 90 mL/min (90-120)
--- NOTE | 2019-10-17 13:54 | NUR ---
WRITTEN SCRIPT FOR NORCO 10 MG GIVEN TO PATIENT AND COPY OF IT TO CHART.
--- NOTE | 2019-10-17 13:55 | NUR ---
Rehab Note- Acute Inpatient Rehab prescreen order received. The tomás has not had a PT Eval during this acute hospital stay and has a discharge order at this time. He has previously been here in the acute hospital and was noted to wheelchair bound and paraplegic. Thank you for this referral! Shreya Mcwilliams RN Clinical Liaison, [facility] Rehab
--- NOTE | 2019-10-17 16:20 | NUR ---
D/C INSTRUCTIONS GIVEN. PATIENT SIGNS D/C PAPERS. D/C IV, TIP INTACT. PATIENT HOME WITH MOTHER VIA WHEELCHAIR. ESCORT VIA WHEELCHAIR.
== END 2019-10-17 17:54 | disposition home health service (06) ==
LOC: D.ER 23:22 → OBSVTIME 10-16 00:07 → D.M2 10-16 00:07
PROVIDERS: Family Medicine; ADMIT Family Medicine; ATTEND Family Medicine
DX: I87.8 Other specified disorders of veins (principal); G82.20 Paraplegia, unspecified; R60.0 Localized edema; K21.9 Gastro-esophageal reflux disease without esophagitis

== ENCOUNTER 2020-01-09 06:54 | Emergency (ER) | payer MEDICARE ==
[~2020-01-09] VITALS: Ht 180.3 cm; Wt 97.7 kg
[~2020-01-09 06:54] MED LIST changes: +CALMOSEPTINE OI71 GM TOPICAL; +CLINDAMYCIN HC300 MG PO; +HCTZ25 MG PO; +HYDROCODON-ACE1 EA10 PO
[2020-01-09 07:03] VITALS: Ht 180.3 cm; Wt 97.7 kg
[2020-01-09 07:44] LABS: CALC OSMOLALITY 266 mosm/kg (275-300); CALCIUM 8.9 mg/dL (8.5-10.1); CARBON DIOXIDE 28.1 mmol/L (21.0-32.0); CHLORIDE - SERUM 98 mmol/L (98-107); CREATININE - SERUM 0.7 mg/dL (0.6-1.3); GLUCOSE 83 mg/dL (74-106); POTASSIUM - SERUM 4.2 mmol/L (3.5-5.1); SODIUM 134 mmol/L (136-145); UREA NITROGEN 12 mg/dL (7-18); eGFR NON AFRICAN AMERICAN > 90 mL/min (90-120)
[2020-01-09 07:46] LABS: BASOPHILS 0.4 % (0-2); EOSINOPHILS 3.2 % (0-7); HEMATOCRIT 48.7 % (42.0-54.0); HEMOGLOBIN 15.8 g/dL (13.5-17.5); IMMATURE GRANULOCYTES 1.2 % (0-5); LYMPHOCYTES 11.3 % (15-50); MCH 28.9 pg (26.0-34.0); MCHC 32.4 g/dL (31.0-37.0); MEAN PLATELET VOLUME 10.6 fL (7.4-10.4); MONOCYTES 9.7 % (2-11); NEUTROPHILS 74.2 % (40-80); RBC 5.47 10x6/uL (4.20-6.10); RDW 14.9 % (11.5-14.5); WBC 7.8 10x3/uL (4.8-10.8)
[2020-01-09 07:48] LABS: PLATELET COUNT 134 10x3/uL (130-400)
[2020-01-09 07:50] LABS: ALBUMIN 3.6 g/dL (3.4-5.0); ALKALINE PHOSPHATASE 187 U/L (30-120); ALT (SGPT) 20 U/L (10-68); BILIRUBIN - TOTAL 0.92 mg/dL (0.2-1.3); C-REACTIVE PROTEIN 3.6 mg/dL (0.0-0.9); PROTEIN - SERUM 7.9 g/dL (6.4-8.2)
[2020-01-09 08:58] LABS: UDS - AMPHET NEGATIVE QUAL (NEGATIVE); UDS - BARB NEGATIVE QUAL (NEGATIVE); UDS - BENZO NEGATIVE QUAL (NEGATIVE); UDS - COCAINE NEGATIVE QUAL (NEGATIVE); UDS - OPIATE NEGATIVE QUAL (NEGATIVE); UDS - PCP NEGATIVE QUAL (NEGATIVE); UDS - THC POSITIVE QUAL (NEGATIVE)
[2020-01-09] MEDS ORDERED: BACTRIM DS TAB1 EAC1 PO (09:20)
[2020-01-09 09:34] LABS: NITRITE NEGATIVE (NEGATIVE)
[2020-01-09 09:35] LABS: BACTERIA FEW HPF (NONE SEEN); BILIRUBIN NEGATIVE (NEGATIVE); EPITHELIAL CELLS 0-5 /hpf (0-5); KETONE MODERATE mg/dL (NEGATIVE); UROBILINOGEN NORMAL mg/dL (< 2); WHITE CELLS - URINE 25-50 HPF (0-1)
[2020-01-09 09:46] VITALS: BP 115/75
== END 2020-01-09 09:46 | disposition home or self-care (01) ==
LOC: D.ER 06:54
PROVIDERS: Family Medicine
DX: G82.20 Paraplegia, unspecified (principal); R60.0 Localized edema; L03.90 Cellulitis, unspecified; K21.9 Gastro-esophageal reflux disease without esophagitis

== ENCOUNTER 2020-06-18 14:33 | Inpatient (IN) | payer MEDICARE ==
[~2020-06-18] VITALS: Ht 180.3 cm; Wt 91.0 kg
[~2020-06-18 14:33] MED LIST changes: +BACTRIM DS TAB1 EAC1 PO
[2020-06-18 15:25] LABS: BASOPHILS 0.1 % (0-2); EOSINOPHILS 0 % (0-7); HEMATOCRIT 34.9 % (42.0-54.0); HEMOGLOBIN 11.4 g/dL (13.5-17.5); IMMATURE GRANULOCYTES 0.3 % (0-5); LYMPHOCYTE ABS# 0.57 10x3/uL (1.32-3.57); LYMPHOCYTES 4.7 % (15-50); MCH 28.1 pg (26.0-34.0); MCHC 32.7 g/dL (31.0-37.0); MCV 86.2 fL (80.0-100.0); MEAN PLATELET VOLUME 8.3 fL (7.4-10.4); MONOCYTES 2.7 % (2-11); NEUTROPHIL ABS# 11.13 10x3/uL (1.78-5.38); NEUTROPHILS 92.2 % (40-80); RBC 4.05 10x6/uL (4.20-6.10); RDW 15.9 % (11.5-14.5); WBC 12.1 10x3/uL (4.8-10.8)
[2020-06-18 15:27] LABS: PLATELET COUNT 204 10x3/uL (130-400)
[2020-06-18 15:30] LABS: APTT 33.8 SECONDS (22.8-39.4); CALC OSMOLALITY 257 mosm/kg (275-300); CALCIUM 8.5 mg/dL (8.5-10.1); CARBON DIOXIDE 27.6 mmol/L (21.0-32.0); CHLORIDE - SERUM 92 mmol/L (98-107); CREATININE - SERUM 1.2 mg/dL (0.6-1.3); GLUCOSE 99 mg/dL (74-106); INR 1.32 (0.85-1.17); POTASSIUM - SERUM 3.6 mmol/L (3.5-5.1); PROTIME 15.2 SECONDS (11.6-15.0); SODIUM 128 mmol/L (136-145); UREA NITROGEN 15 mg/dL (7-18); eGFR NON AFRICAN AMERICAN 69 mL/min (90-120)
[2020-06-18 15:45] LABS: ALKALINE PHOSPHATASE 124 U/L (30-120); ALT (SGPT) 15 U/L (10-68); PRO BNP 250 pg/mL (0-125); PROTEIN - SERUM 8.1 g/dL (6.4-8.2); TROPONIN-I < 0.017 ng/mL (0.000-0.060)
[2020-06-18 17:43] LABS: INFLUENZA TYPE A NEGATIVE (NEGATIVE); INFLUENZA TYPE B NEGATIVE (NEGATIVE); SARS-CoV-2 ANTIGEN NEGATIVE- SARS-COV-2 (NEGATIVE)
[2020-06-18 18:28] LABS: BILIRUBIN NEGATIVE (NEGATIVE); KETONE NEGATIVE (NEGATIVE); NITRITE POSITIVE (NEGATIVE); UROBILINOGEN NORMAL mg/dL (< 2)
[2020-06-18 18:29] LABS: BACTERIA MODERATE HPF (NONE SEEN); WHITE CELLS - URINE >50 HPF (0-1)
[2020-06-18 18:41] VITALS: BP 116/76
--- NOTE | 2020-06-18 19:50 | NUR ---
REPORT RECEIVED, WILL CONT POC. PT A&O, UP IN BED ASLEEP. NO S/S OF DISTRESS OBSERVED. RR EVEN & UNLABORED ON RA. BED LOCKED & LOWERED, CL IN REACH. ASSESSMENT COMPLETED AT THIS TIME. WILL CONT TO MONITOR.
[2020-06-19] VITALS (7 sets, daily range): BP systolic 93–119; BP diastolic 54–85; Ht 180.3 cm; Wt 91.0 kg
[2020-06-19 06:48] LABS: BASOPHILS 0.2 % (0-2); EOSINOPHILS 0.5 % (0-7); HEMATOCRIT 29.7 % (42.0-54.0); HEMOGLOBIN 9.5 g/dL (13.5-17.5); IMMATURE GRANULOCYTES 0.2 % (0-5); LYMPHOCYTE ABS# 0.51 10x3/uL (1.32-3.57); LYMPHOCYTES 8.6 % (15-50); MCH 27.5 pg (26.0-34.0); MCV 85.8 fL (80.0-100.0); MEAN PLATELET VOLUME 8.4 fL (7.4-10.4); MONOCYTES 7.6 % (2-11); NEUTROPHIL ABS# 4.94 10x3/uL (1.78-5.38); NEUTROPHILS 82.9 % (40-80); PLATELET COUNT 171 10x3/uL (130-400); RBC 3.46 10x6/uL (4.20-6.10)
[2020-06-19 06:59] LABS: ALKALINE PHOSPHATASE 92 U/L (30-120); ALT (SGPT) 14 U/L (10-68); BILIRUBIN - TOTAL 0.31 mg/dL (0.2-1.3); CALC OSMOLALITY 270 mosm/kg (275-300); CALCIUM 7.8 mg/dL (8.5-10.1); CARBON DIOXIDE 26.2 mmol/L (21.0-32.0); CHLORIDE - SERUM 100 mmol/L (98-107); GLUCOSE 129 mg/dL (74-106); MAGNESIUM - SERUM 1.9 mg/dL (1.8-2.4); POTASSIUM - SERUM 3.5 mmol/L (3.5-5.1); PROTEIN - SERUM 6.3 g/dL (6.4-8.2); SODIUM 134 mmol/L (136-145); UREA NITROGEN 14 mg/dL (7-18); eGFR NON AFRICAN AMERICAN 85 mL/min (90-120)
[2020-06-19 07:02] LABS: ALBUMIN 2.2 g/dL (3.4-5.0)
--- NOTE | 2020-06-19 08:41 | NUR ---
AM MEDS GIVEN PER EMAR. RR EVEN NON LABORED ON ROOM AIR. PT AWAKE AND ALERT. PT DENIES ANY NEEDS. C/O PAIN , WILL GIVE PRN MEDICATION PER EMAR. CLWR.
--- NOTE | 2020-06-19 21:24 | NUR ---
PT SITTING UP IN THE BED TALKING ON THE PHONE WITH HIS MOTHER. PT IS AAOX4. PT IS ON ROOM AIR, DENIES SOB. URINAL AT BEDSIDE. IV IN RIGHT FOREARM ACCIDENTALLY REMOVED BY PATIENT. FIRST ATTEMPT UNSUCCESSFUL, A SECOND NURSE TO TRY. BS 110 NO COVERAGE NEEDED. PT C/O PAIN IN BLE PAIN MEDICATION GIVEN ORDERED. WHEN ASKED ABOUT MULTIPLE SORES ON ARMS, PT STATED IT IS FROM "CENTIPEDES AND FRUIT FLIES"
--- NOTE | 2020-06-20 00:15 | NUR ---
WOUND CARE PERFORMED ON BILATERAL LEGS. CLEANED WITH BETADINE AND WRAPPED WITH GAUZE AND COBAND. SCANT DRAINAGE FROM OPEN WOUND ON THE LATERAL RIGHT CALF.
[2020-06-20 04:00] VITALS: BP 118/77
[2020-06-20 06:13] LABS: BASOPHILS 0.2 % (0-2); EOSINOPHILS 5.2 % (0-7); HEMATOCRIT 30.6 % (42.0-54.0); HEMOGLOBIN 9.8 g/dL (13.5-17.5); LYMPHOCYTE ABS# 0.74 10x3/uL (1.32-3.57); LYMPHOCYTES 16.1 % (15-50); MCH 27.8 pg (26.0-34.0); MCV 86.7 fL (80.0-100.0); MEAN PLATELET VOLUME 8.7 fL (7.4-10.4); MONOCYTES 13.7 % (2-11); NEUTROPHIL ABS# 2.99 10x3/uL (1.78-5.38); NEUTROPHILS 64.8 % (40-80); PLATELET COUNT 183 10x3/uL (130-400); RBC 3.53 10x6/uL (4.20-6.10); WBC 4.6 10x3/uL (4.8-10.8)
[2020-06-20 06:21] LABS: ALBUMIN 2.2 g/dL (3.4-5.0); ALKALINE PHOSPHATASE 90 U/L (30-120); ALT (SGPT) 12 U/L (10-68); BILIRUBIN - TOTAL 0.24 mg/dL (0.2-1.3); CALC OSMOLALITY 268 mosm/kg (275-300); CALCIUM 7.3 mg/dL (8.5-10.1); CARBON DIOXIDE 30.5 mmol/L (21.0-32.0); CHLORIDE - SERUM 100 mmol/L (98-107); CREATININE - SERUM 0.8 mg/dL (0.6-1.3); GLUCOSE 97 mg/dL (74-106); MAGNESIUM - SERUM 2.1 mg/dL (1.8-2.4); POTASSIUM - SERUM 3.9 mmol/L (3.5-5.1); PROTEIN - SERUM 6.1 g/dL (6.4-8.2); SODIUM 135 mmol/L (136-145); eGFR NON AFRICAN AMERICAN > 90 mL/min (90-120)
[2020-06-20 06:23] LABS: UREA NITROGEN 9 mg/dL (7-18)
[2020-06-20 07:56] VITALS: BP 107/71
[2020-06-20 11:19] VITALS: BP 102/61
--- NOTE | 2020-06-20 11:34 | NUR ---
INFLUENZA SWAB DONE TO BOTH NOSTRILS. TOLERATED WELL
[2020-06-20 13:55] LABS: INFLUENZA TYPE A NEGATIVE (NEGATIVE); INFLUENZA TYPE B NEGATIVE (NEGATIVE)
--- NOTE | 2020-06-20 15:01 | NUR ---
REHAB PRESCREENING Rehab referral received and chart reviewed. Case discussed with acute PT and OT. Both disciplines state that this patient is not a good candidate for acute inpatient rehab. Recommend SNF or home with home health. Thank you for this referral! Kellee Dominguez, CLINCHING MACHINE OPERATOR Rehab PD
[2020-06-20 15:53] VITALS: BP 136/87
[2020-06-20 20:00] VITALS: BP 104/68
--- NOTE | 2020-06-20 20:10 | NUR ---
REPORT RECEIVED, WILL CONT POC. PT A&O, UP IN BED. NO S/S OF DISTRESS OBSERVED. RR EVEN & UNLABORED ON RA. BED LOCKED AND LOWERED, CL IN REACH. ASSESSMENT COMPLETED AT THIS TIME. WILL CONT TO MONITOR.
--- NOTE | 2020-06-21 01:35 | NUR ---
EXPLAINED TO PT THAT DAILY DRESSING CHANGES WERE ORDERED BY DR. VIZCAINO AND THAT THIS NURSE NEEDED TO CHANGE BOTH DRESSINGS ON EACH LEG. PT STATED "NO, LET'S NOT DO THAT RIGHT NOW." ASKED PT IF THIS NURSE COULD COME BACK IN 2 HOURS AND CHANGE THE DRESSINGS. PT STATED "SOUNDS LIKE YOU'RE PLOTTING AGAINST ME". TOLD PT THAT THIS NURSE'S ONLY INTENTION WAS TO CHANGE HIS BANDAGES TO PREVENT INFECTION. PT STATED "NO, NO, NO. SOUNDS LIKE YOU'RE PLOTTING AGAINST ME. THEY CHANGED MY DRESSINGS DURING THE DAY". REMINDED PT THAT JESSICA HORTON CHANGED HIS DRESSING AT 0100 ON 06/20/20. PT STATED THAT THEY CHANGED IT DURING THE DAY. JESSICA BORJA DAY SHIFT TOLD THIS NURSE IN SHIFT REPORT THAT SHE DID NOT DO A DRESSING CHANGE ON HER SHIFT. CURRENT DRESSINGS ARE DATED FOR 06/20/20 WITH JESSICA HORTON INITIALS ON BANDAGES. WILL REPORT TO DAY SHIFT NURSE THAT PT STILL NEEDS DRESSING CHANGE FOR 06/21/20.
[2020-06-21 04:00] VITALS: BP 111/58
[2020-06-21 05:34] LABS: BASOPHILS 0.2 % (0-2); EOSINOPHILS 5.1 % (0-7); HEMATOCRIT 32.7 % (42.0-54.0); HEMOGLOBIN 10.2 g/dL (13.5-17.5); IMMATURE GRANULOCYTES 0.2 % (0-5); LYMPHOCYTE ABS# 0.82 10x3/uL (1.32-3.57); LYMPHOCYTES 20.1 % (15-50); MCH 27.3 pg (26.0-34.0); MCHC 31.2 g/dL (31.0-37.0); MCV 87.7 fL (80.0-100.0); MEAN PLATELET VOLUME 8.3 fL (7.4-10.4); MONOCYTES 12.5 % (2-11); NEUTROPHIL ABS# 2.52 10x3/uL (1.78-5.38); NEUTROPHILS 61.9 % (40-80); PLATELET COUNT 195 10x3/uL (130-400); RBC 3.73 10x6/uL (4.20-6.10); WBC 4.1 10x3/uL (4.8-10.8)
[2020-06-21 06:13] LABS: ALBUMIN 2.3 g/dL (3.4-5.0); ALKALINE PHOSPHATASE 85 U/L (30-120); ALT (SGPT) 11 U/L (10-68); BILIRUBIN - TOTAL 0.27 mg/dL (0.2-1.3); CALC OSMOLALITY 270 mosm/kg (275-300); CALCIUM 7.9 mg/dL (8.5-10.1); CHLORIDE - SERUM 102 mmol/L (98-107); CREATINE KINASE 43 UL (21-232); GLUCOSE 119 mg/dL (74-106); MAGNESIUM - SERUM 2.1 mg/dL (1.8-2.4); POTASSIUM - SERUM 4.1 mmol/L (3.5-5.1); PROTEIN - SERUM 6.8 g/dL (6.4-8.2); SODIUM 136 mmol/L (136-145); TROPONIN-I < 0.017 ng/mL (0.000-0.060); UREA NITROGEN 8 mg/dL (7-18); eGFR NON AFRICAN AMERICAN 85 mL/min (90-120)
[2020-06-21 09:57] VITALS: BP 104/66
--- NOTE | 2020-06-21 10:36 | NUR ---
OT NOTE: HOLD PER NURSE. THANK YOU, DOLORES DOMINGO
[2020-06-21] MEDS ORDERED: KLOR-CON M2020 MEQ PO (10:48)
[2020-06-21] MEDS ORDERED: LASIX40 MG PO (10:48)
[2020-06-21] MEDS ORDERED: CLEOCIN HCL300 MG PO (10:48)
--- NOTE | 2020-06-21 12:47 | NUR ---
Nutrition Follow-up: Good/fair PO intake. Covid (-). Noted plans to d/c today. Diet: Cardiac PO intake: 50-75% Wt: 200# (06/21) Labs noted: Glu 119, Ca 7.9, Alb 2.3 Meds noted: Lasix, KDur, electrolyte protocol -Encourage PO intake and honor food preferences within diet restrictions. -RD will follow up within 5-7 days if pt still admitted.
--- NOTE | 2020-06-21 14:13 | NUR ---
DISCHARGE HOME WITH SISTER. REVIEWED DISCHARGE INSTRUCTIONS WITH PT & MEDICATIONS. VERBALIZED UNDERSTANDING. DRESSING SUPPLIES IN ROOM WAS SENT WITH PT. ASKED ABOUT PAIN MEDICATIONS FOR HOME EXPLAINED THAT NONE WERE ORDERED. PT WAS OK WITH IT. HAD SOME DIFFICULTY WITH TRANSFER FROM TO PRIVATE VEHICLE. WISHED WELL
--- NOTE | 2020-06-23 16:48 | MORECARE ---
CASE MANAGEMENT DISCHARGE SUMMARY PATIENT: SIDNEY KOWALSKI UNIT: [id number] ADM DATE: 06/18/20 AGE: 49 : 74 SEX: M ROOM/BED: D.2128 AUTHOR: DUKE,DOC PHYSICIAN: REFERRING PHYSICIAN: DAVID KATZ MD DATE OF SERVICE: 06/23/20 Case Management Discharge Planning Summary CT Patient Name: SIDNEY KOWALSKI Attending MD : BARBARA KATZ, Medical Record: [id number] Encounter : [id number] Facility : [address] [place] [address] Admission Date : 118:10 Center Discharge Date : 06/21/[address] [place] [address] Date of : DC Plan ID : [id number] Age/Sex/Martia : 49/ M/D Printed on : 06/23/20 16:47 CT DCP Review Details Anticipated D/C: Expected LOS : 0 Case Status : NOTSTART - Initial Reviewe: [id number] - Tahmina Maravilla Initial Review: 06/23/2020 Planned Disposi: - Final Discharge: - Home or Self Care (Routine Discharge) Final Reviewer : [email or web address] : Tahmina Maravilla Final Review : 06/23/2020 DCP Focus Questions & Answers [facility] SIDNEY KOWALSKI MR#: [id number] /Age/Sex/Mioomi65-Hlt-77 /49/M /D Attending Physician Name: Hill [id number] Patient Account:[id number] [facility] Page -1 of 1 All edits/amendments must be made on the electronic document DICTATION DATE: 06/23/201646 CAMERA SUPERVISOR: DM 06/23/201646 RPT#: [id number] DC DATE:06/21/20 STATUS: [place] [id number] END OF REPORT
--- NOTE | 2020-06-25 10:42 | EC ---
PATIENT:SIDNEY KOWALSKI DATE OF SERVICE: 06/18/20 SEX: M MEDICAL RECORD: [id number] DATE OF : 74 LOCATION:D.M2 D.212 AGE OF PATIENT: 49 ADMISSION DATE: 06/18/20 REFERRING PHYSICIAN: INTERPRETING PHYSICIAN: OLIVIA MONTANO MD ECHOCARDIOGRAM REPORT ECHO CHARGES 4 ECHO COMPLETE Date: 06/21/20 CLINICAL DIAGNOSIS: CP ECHOCARDIOGRAPHIC MEASUREMENTS (adult normal given) AC root (d.<3.7cm) 3.3 cm LV Septum d (<1.2 cm> 0.8 cm Valve Excursion 2.3 cm LV Septum (systole) 1.2 cm Left Atria (s.<4.0cm> 4.2 cm LVPW d(<1.2cm) 1.0 cm RV (d.<2.3cm) 3.0 cm LVPW (sytole) 1.3 cm LV diastole(<5.6CM) 5.0 cm MV E-F(>70mm/sec) cm LV systole 4.0 cm LVOT Diameter 2.1 cm MV exc.(>10mm) 1.6 cm Est.ejection fraction (50-75%) % DOPPLER: LVIT cm/sec A 53 cm/sec E 82 cm/sec LA cm/sec RVSP 27 mmHg LVOT 83 cm/sec AOP1/2T m/s Asc. Ao 95 cm/sec RVOT 53 cm/sec RA cm/sec PA 83 cm/sec AV Gradient Peak 3.6 mmHg AV Mean 2.0 mmHg AV Area 3.0 cm MV Gradient Peak 4.2 mmHg MV Mean 1.5 mmHg MV Area cm COMMENTS: Botanical Technical Officer: Josue [facility] Manufacturing Engineering Manager: 3 Dr. Caputo TAPE# Pericardial Effusion N DATE OF SERVICE: Adequate 2D, color flow imaging, spectral Doppler, and M-Mode. No LVH. LV internal dimension is normal. Wall motion is normal. EF is greater than or equal to 55%. Aortic valve is tricuspid. No evidence of stenosis by Doppler interrogation. Left atrium is mildly dilated at 4.2 cm. Mitral valve shows no prolapse. Mild MR. Right side is grossly normal. Trace TR. TRANSINT:[id number] Voice Confirmation ID: [id number] DOCUMENT ID: [id number] ECHOCARDIOGRAM REPORT [id number] YANDELL,SIDNEYOLIVIA HOYOS MD at 1042 CC: [id number] DICTATION DATE: 06/21/20 1256 FRAMING SPECIALIST: 06/21/20 1309 DIS IN 06/21/20 [id number] [place] [address]
--- NOTE | 2020-07-01 19:48 | MORECARE ---
CASE MANAGEMENT DISCHARGE SUMMARY PATIENT: SIDNEY KOWALSKI UNIT: [id number] ADM DATE: 06/18/20 AGE: 49 : 74 SEX: M ROOM/BED: D.6406 AUTHOR: DUKE,DOC PHYSICIAN: REFERRING PHYSICIAN: DAVID KATZ MD DATE OF SERVICE: 07/01/20 Case Management Discharge Planning Summary CT Patient Name: SIDNEY KOWALSKI Attending MD : BARBARA KATZ, Medical Record: [id number] Encounter : [id number] Facility : [address] [place] [address] Admission Date : 118:10 Center Discharge Date : 06/21/[address] [place] [address] Date of : DC Plan ID : [id number] Age/Sex/Martia : 49/ M/D Printed on : 07/01/20 19:47 CT DCP Review Details Anticipated D/C: Expected LOS : 0 Case Status : COMPLET - Initial Reviewe: [id number] - Tahmina Maravilla Initial Review: 06/23/2020 Planned Disposi: 01 - Home or Self Care (Routine Discharge) Final Discharge: 01 - Home or Self Care (Routine Discharge) Final Reviewer : [id number] : Tahmina Maravilla Final Review : 06/23/[address] Entered Date Type Reviewer 07/01/20 19:42 CT Discharge Planning Emily Brady Comment LATE ENTRY 06/21/20 CM spoke with patient to complete initial dc planning assessment. CM educated patient on the CM role and verbal consent given by patient to complete assessment. Patient lives at home with family. Patient is independent. At discharge patient plans to return home and feels this is a safe discharge. CM discussed availability of home health, rehab services, and medical equipment. Patient will have family to transport home. Patient denied known discharge needs at this time. CM will continue to follow and will assist as needed with dc plans/needs. D/C IMM SIGNED 06/21/20 @ 1222 DCP Focus Questions & Answers DCP Screen High Risk Factors: Hosp related to CHF, COPD, DM, End Stage Ds, CVA, CA DCP Evaluation Patient's ability to cope with chronic illness d. No chronic illness Would patient like to participate in any Care Not applicable Coordination programs (if applicable): Mental health screen: No mental health history DCP Re-evaluation Would patient like to participate in any Care Not applicable Coordination programs (if applicable): [facility] SIDNEY KOWALSKI MR#: [id number] /Age/Sex/Rbfiuz24-Kni-25 /49/M /D Attending Physician Name: STERLING [id number] Patient Account:[id number] [facility] Page -1 of 1 All edits/amendments must be made on the electronic document DICTATION DATE: 07/01/201945 APPLICATION PENETRATION TESTER: MENG 07/01/201945 RPT#: [id number] DC DATE:06/21/20 STATUS: DIS IN [facility] [address] [place] [address] END OF REPORT
--- NOTE | 2020-07-01 20:00 | MORECARE ---
CASE MANAGEMENT DISCHARGE SUMMARY PATIENT: SIDNEY KOWALSKI UNIT: [id number] ADM DATE: 06/18/20 AGE: 49 : 74 SEX: M ROOM/BED: D.5708 AUTHOR: DUKE,DOC PHYSICIAN: REFERRING PHYSICIAN: DAVID KATZ MD DATE OF SERVICE: 07/01/20 Case Management Discharge Planning Summary CT Patient Name: SIDNEY KOWALSKI Attending MD : BARBARA KATZ, Medical Record: [id number] Encounter : [id number] Facility : [address] [place] [address] Admission Date : 118:10 Center Discharge Date : 06/21/[address] [place] [address] Date of : DC Plan ID : [id number] Age/Sex/Martia : 49/ M/D Printed on : 07/01/20 19:59 CT DCP Review Details Anticipated D/C: Expected LOS : 0 Case Status : COMPLET - Initial Reviewe: [id number] - Tahmina Maravilla Initial Review: 06/23/2020 Planned Disposi: 01 - Home or Self Care (Routine Discharge) Final Discharge: 01 - Home or Self Care (Routine Discharge) Final Reviewer : [id number] : Tahmina Maravilla Final Review : 06/23/[address] Entered Date Type Reviewer 07/01/20 19:42 CT Discharge Planning Emily Brady Comment LATE ENTRY 06/21/20 CM spoke with patient to complete initial dc planning assessment. CM educated patient on the CM role and verbal consent given by patient to complete assessment. Patient lives at home with family. Patient is independent. At discharge patient plans to return home and feels this is a safe discharge. CM discussed availability of home health, rehab services, and medical equipment. Patient will have family to transport home. Patient denied known discharge needs at this time. CM will continue to follow and will assist as needed with dc plans/needs. D/C IMM SIGNED 06/21/20 @ 1222 DCP Focus Questions & Answers DCP Screen High Risk Factors: Hosp related to CHF, COPD, DM, End Stage Ds, CVA, CA DCP Evaluation Patient and/or caregiver agree upon recommended Yes discharge plan? Patient's current cognitive status: *Oriented to person, place, situation, time and present Patient gives permission to discuss discharge MATT KOWALSKI - MOTHER [phone] plans with: (name, relationship and number) Patient's ability to cope with chronic illness d. No chronic illness Functional screen assessment: Noticeable poor ADL management Physical Status: Mobility impaired Physical Status: Compromised skin integrity Living Arrangements: Home with Parents Partial Dependence, assistance required for: Dressing Partial Dependence, assistance required for: Bathing Partial Dependence, assistance required for: Ambulation / Mobility Results of this evaluation have been discussed Patient with: Patient with capacity for self-care or can be Yes cared for in same environment as prior to hospitalization? Living arrangements comments: LIVES W MOTHER Baseline cognitive status: *Oriented to person, place, situation, time and present Pharmacy name(s): [facility] Does Patient have transportation to get home and Yes to follow-up medical appointments when discharged from the hospital? Would patient like to participate in any Care Not applicable Coordination programs (if applicable): Does the patient have electricity at home? Yes Does the patient have running water in their Yes house? Mental health screen: No mental health history DCP Re-evaluation Would patient like to participate in any Care Not applicable Coordination programs (if applicable): [facility] SIDNEY KOWALSKI MR#: [id number] /Age/Sex/Mjflkp19-Ktl-38 /49/M /D Attending Physician Name: STERLING [id number] Patient Account:[id number] [facility] Page -1 of 1 All edits/amendments must be made on the electronic document DICTATION DATE: 07/01/201958 TREATING AND PUMPING SUPERVISOR: MENG 07/01/201958 RPT#: [id number] DC DATE:06/21/20 STATUS: DIS IN [facility] [address] [place] [address] END OF REPORT
== END 2020-06-21 14:00 | disposition home or self-care (01) | DRG 871 ==
LOC: D.ER 14:33 → D.M2 18:10
PROVIDERS: Family Medicine; ADMIT Family Medicine; ATTEND Family Medicine
PROC: 0H9LXZZ Drainage of Left Lower Leg Skin, External Approach (ICD-10-PCS; principal; 2020-06-18)
PROC: 0H9KXZZ Drainage of Right Lower Leg Skin, External Approach (ICD-10-PCS; 2020-06-18)
DX: A41.9 Sepsis, unspecified organism (principal); I50.31 Acute diastolic (congestive) heart failure; L03.116 Cellulitis of left lower limb; L03.115 Cellulitis of right lower limb; E87.1 Hypo-osmolality and hyponatremia; Z20.822 Contact with and (suspected) exposure to COVID-19; K21.9 Gastro-esophageal reflux disease without esophagitis; R07.89 Other chest pain; Z86.73 Personal history of transient ischemic attack (TIA), and cerebral infarction without residual deficits

== ENCOUNTER 2020-09-06 01:22 | Inpatient (IN) | payer MEDICARE ==
[~2020-09-06] VITALS: Ht 180.3 cm; Wt 113.6 kg
[~2020-09-06 01:22] MED LIST changes: +KLOR-CON M2020 MEQ PO
[2020-09-06 02:30] LABS: BASOPHILS 0.6 % (0-2); EOSINOPHILS 5.6 % (0-7); HEMATOCRIT 33.2 % (42.0-54.0); HEMOGLOBIN 10.6 g/dL (13.5-17.5); LYMPHOCYTES 14.7 % (15-50); MCH 26.8 pg (26.0-34.0); MCHC 31.9 g/dL (31.0-37.0); MCV 83.9 fL (80.0-100.0); MEAN PLATELET VOLUME 6.6 fL (7.4-10.4); MONOCYTES 10.2 % (2-11); NEUTROPHILS 68.9 % (40-80); RBC 3.95 10x6/uL (4.20-6.10); RDW 16.6 % (11.5-14.5); WBC 6.3 10x3/uL (4.8-10.8)
[2020-09-06 02:31] LABS: CALC OSMOLALITY 273 mosm/kg (275-300); CALCIUM 8.1 mg/dL (8.5-10.1); CARBON DIOXIDE 32.9 mmol/L (21.0-32.0); CHLORIDE - SERUM 103 mmol/L (98-107); CREATININE - SERUM 0.8 mg/dL (0.6-1.3); GLUCOSE 95 mg/dL (74-106); POTASSIUM - SERUM 3.6 mmol/L (3.5-5.1); SODIUM 138 mmol/L (136-145); UREA NITROGEN 8 mg/dL (7-18); eGFR NON AFRICAN AMERICAN > 90 mL/min (90-120)
[2020-09-06 02:35] LABS: PLATELET COUNT 314 10x3/uL (130-400)
[2020-09-06 02:36] LABS: BILIRUBIN NEGATIVE (NEGATIVE); KETONE NEGATIVE (NEGATIVE); NITRITE POSITIVE (NEGATIVE); UROBILINOGEN NORMAL mg/dL (< 2)
[2020-09-06 02:38] LABS: UDS - AMPHET NEGATIVE QUAL (NEGATIVE); UDS - BARB NEGATIVE QUAL (NEGATIVE); UDS - BENZO NEGATIVE QUAL (NEGATIVE); UDS - COCAINE NEGATIVE QUAL (NEGATIVE); UDS - OPIATE NEGATIVE QUAL (NEGATIVE); UDS - PCP NEGATIVE QUAL (NEGATIVE); UDS - THC POSITIVE QUAL (NEGATIVE)
[2020-09-06 02:39] LABS: BACTERIA FEW HPF (NONE SEEN); SQUAMOUS EPITHELIAL 0-5 HPF (0-4)
[2020-09-06 02:45] LABS: ALBUMIN 2.6 g/dL (3.4-5.0); ALKALINE PHOSPHATASE 135 U/L (30-120); ALT (SGPT) 11 U/L (10-68); BILIRUBIN - TOTAL 0.55 mg/dL (0.2-1.3); CREATINE KINASE 103 UL (21-232); PRO BNP 299 pg/mL (0-125); PROTEIN - SERUM 7.8 g/dL (6.4-8.2); THYROID STIMULATING HORMONE 1.65 uIU/mL (0.36-3.74); TROPONIN-I < 0.017 ng/mL (0.000-0.060)
[2020-09-06 02:48] LABS: LIPASE 18 U/L (73-393)
[2020-09-06 03:00] VITALS: BP 143/73
[2020-09-06 04:00] VITALS: BP 131/83
[2020-09-06 05:00] VITALS: BP 104/69
--- NOTE | 2020-09-06 05:52 | NUR ---
PT ON BROADLOOM WEAVER, SINUS RHYTHM OF 87. PT AROUSES TO VERBAL STIMULI, DENIES NEEDS. NAD NOTED.
[2020-09-06 06:00] VITALS: BP 123/64
[2020-09-06 09:59] VITALS: BP 118/70
--- NOTE | 2020-09-06 17:55 | NUR ---
PT REPORT GIVEN TO ANANYA LOPEZ
--- NOTE | 2020-09-06 19:40 | NUR ---
PATIENT IS REQUESTING PAIN MEDICATIONS WELL MEDICATION FOR RASH, STATED THAT HE DID NOT GET ANYTHING IN ER BUT WOULD LIKE SOMETHING NOW, WILL PAGE BIRDIE HAQ.PATIENT HAS RASH ALL OVER LOWER BACK, BLE AND BUE. SCABBED OVER AND SOME BLEEDING. CONTINUE WITH PLAN OF CARE
[2020-09-06 20:00] VITALS: BP 127/72
--- NOTE | 2020-09-06 22:30 | NUR ---
PATIENT ON CL REQUESTING PAIN MEDICATION AND SOMETHING TO RELIEVE ITCHING, ADMINISTERED PRN MEDICATIONSNO OTHER NEEDS AT THIS TIME. CONTINUE WITH PLAN OF CARE
[2020-09-07] VITALS: BP 105/55
--- NOTE | 2020-09-07 00:38 | NUR ---
PATIENT ON CL REQUESTING PAIN MEDICATION AGIN, INFORMED HIM JUST ADMINISTERED NOT TOO LONG AGO AND UNABLE TO ADMINISTER ANY MORE FOR ANOTHER 2 HOURS, PATIENT THEN REQUESTED MEDICATION TO ASSIST HIM TO SLEEP. INFORMED HIM HE HAD BENADRYL BUT I WILL PAGE VENEER PULLER TUNNEL KILN OPERATOR AND RELAY REQUEST. CONTINUE WITH PLAN OF CARE
[2020-09-07 04:00] VITALS: BP 121/71
--- NOTE | 2020-09-07 05:49 | NUR ---
PATIENT C/O NAUSEA, ADMINISTERED PRN MEDICATION AND GAVE SALTINES. NO OTHER NEEDS AT THIS TIME. CONTINUE WITH PLAN OF CARE
[2020-09-07 06:55] LABS: BASOPHILS 0.5 % (0-2); EOSINOPHILS 6.1 % (0-7); HEMATOCRIT 29.5 % (42.0-54.0); HEMOGLOBIN 9.8 g/dL (13.5-17.5); LYMPHOCYTES 11.9 % (15-50); MCH 27.6 pg (26.0-34.0); MCHC 33.2 g/dL (31.0-37.0); MCV 83.3 fL (80.0-100.0); MEAN PLATELET VOLUME 6.6 fL (7.4-10.4); MONOCYTES 9.6 % (2-11); NEUTROPHILS 71.9 % (40-80); PLATELET COUNT 274 10x3/uL (130-400); RBC 3.54 10x6/uL (4.20-6.10); RDW 16.1 % (11.5-14.5)
[2020-09-07 06:57] LABS: ALBUMIN 2.4 g/dL (3.4-5.0); ALKALINE PHOSPHATASE 116 U/L (30-120); ALT (SGPT) 12 U/L (10-68); BILIRUBIN - TOTAL 0.35 mg/dL (0.2-1.3); CALC OSMOLALITY 267 mosm/kg (275-300); CALCIUM 7.7 mg/dL (8.5-10.1); CARBON DIOXIDE 29.5 mmol/L (21.0-32.0); CHLORIDE - SERUM 102 mmol/L (98-107); CREATININE - SERUM 0.6 mg/dL (0.6-1.3); GLUCOSE 77 mg/dL (74-106); MAGNESIUM - SERUM 2.1 mg/dL (1.8-2.4); PHOSPHOROUS 2.7 mg/dL (2.5-4.9); POTASSIUM - SERUM 3.2 mmol/L (3.5-5.1); PROTEIN - SERUM 7.2 g/dL (6.4-8.2); SODIUM 136 mmol/L (136-145); UREA NITROGEN 3 mg/dL (7-18); eGFR NON AFRICAN AMERICAN > 90 mL/min (90-120)
[2020-09-07 07:37] VITALS: BMI 34.9
[2020-09-07 08:56] VITALS: BP 121/70
--- NOTE | 2020-09-07 09:20 | NUR ---
AAOX4 UPON ENTERING. ADMINISTERED MORNING MEDICATION AT THIS TIME, NO DIFFICULTIES. RESTING UPRIGT IN BED. PRN MORPHINE FOR BACK PAIN, TOLERATED WELL. DENIES ANY NEEDS AT THIS TIME. BED IN LOWEST POSITION, BED RAILS X2, CALL LIGHT WITHIN REACH. WILL CONTINUE POC . ASSESSMENT PERFORMED AT THIS TIME.
[2020-09-07 12:42] VITALS: Ht 180.3 cm; Wt 113.6 kg
[2020-09-07 12:46] VITALS: BP 112/65
--- NOTE | 2020-09-07 13:58 | NUR ---
HUNG IV FLUIDS. PRN MORPHINE FOR PAIN IN BACK. UPRIGHT IN BED EMPTIED 1000ML URINE FROM URINAL. DENIES FURTHER NEEDS AT THIS TIME. WILL CONTINUE POC.
--- NOTE | 2020-09-07 16:45 | NUR ---
BACK FROM CT. REQUESTED PAIN MEDICATION, INFORMED NOT TIME YET, SAID "OKAY". RESTING COMFORTABLY. DENIES ANY NEEDS. WILL CONTINUE POC.
[2020-09-07 17:27] VITALS: BP 135/80
--- NOTE | 2020-09-07 18:30 | NUR ---
PRN MORPHINE FOR BACK PAIN. REQUESTED FRESH WATER, PROVIDED. DENIES FURTHER NEEDS AT THIS TIME. WILL CONTINUE POC.
[2020-09-07 20:00] VITALS: BP 130/71
--- NOTE | 2020-09-08 04:00 | NUR ---
LEFT UPPER ARM IV SWOLLEN AND NO LONGER PATENT. 20G IV RESITED TO RIGHT HAND BY MERCEDES ARAGON FIRST ATTEMPT. GAVE MORPHINE 2MG IV FOR PAIN 01/06 AND RESUMED IV FLUIDS AND SCHEDULED PIGGYBACK.
[2020-09-08 06:46] LABS: BASOPHILS 0.5 % (0-2); EOSINOPHILS 3.5 % (0-7); HEMATOCRIT 30.3 % (42.0-54.0); HEMOGLOBIN 9.9 g/dL (13.5-17.5); LYMPHOCYTES 8.6 % (15-50); MCHC 32.8 g/dL (31.0-37.0); MCV 82.3 fL (80.0-100.0); MEAN PLATELET VOLUME 6.6 fL (7.4-10.4); MONOCYTES 10.3 % (2-11); NEUTROPHILS 77.1 % (40-80); PLATELET COUNT 315 10x3/uL (130-400); RBC 3.68 10x6/uL (4.20-6.10); RDW 16.1 % (11.5-14.5)
[2020-09-08 07:16] LABS: ALKALINE PHOSPHATASE 223 U/L (30-120); BILIRUBIN - TOTAL 0.58 mg/dL (0.2-1.3); CALC OSMOLALITY 267 mosm/kg (275-300); CALCIUM 8.1 mg/dL (8.5-10.1); CARBON DIOXIDE 26.1 mmol/L (21.0-32.0); CHLORIDE - SERUM 98 mmol/L (98-107); CREATININE - SERUM 0.5 mg/dL (0.6-1.3); GLUCOSE 93 mg/dL (74-106); MAGNESIUM - SERUM 2.1 mg/dL (1.8-2.4); PHOSPHOROUS 2.5 mg/dL (2.5-4.9); POTASSIUM - SERUM 3.7 mmol/L (3.5-5.1); PROTEIN - SERUM 7.5 g/dL (6.4-8.2); SODIUM 135 mmol/L (136-145); UREA NITROGEN 6 mg/dL (7-18); eGFR NON AFRICAN AMERICAN > 90 mL/min (90-120)
[2020-09-08 07:17] LABS: ALBUMIN 3.1 g/dL (3.4-5.0); ALT (SGPT) 32 U/L (10-68)
--- NOTE | 2020-09-08 07:30 | NUR ---
REC'D IN BED AWAKE AND ALERT. RSP EVEN AND UNLABORED WITH NO DISTRESS NOTED. CAN EXPRESS NEEDS AND WANTS. NO C/O NOTED OR VOICED. ASSESSMENT COMPLETED. C/L IN REACH AT BEDSIDE.
[2020-09-08 09:19] VITALS: BP 159/98
--- NOTE | 2020-09-08 11:15 | NUR ---
I have reviewed this patient and I concur with the Shift Assessment completed by the Licensed Practical Nurse today this shift.
[2020-09-08 12:51] VITALS: BP 135/79
[2020-09-08] MEDS ORDERED: LEVOFLOXACIN500 MG PO (15:33)
--- NOTE | 2020-09-08 17:58 | NUR ---
[facility] HERE FOR TRANSPORT PT IN STABLE CONDITION UPON DEPARTURE WITH ALL PERSONAL BELONGING.
--- NOTE | 2020-09-08 18:00 | MORECARE ---
CASE MANAGEMENT DISCHARGE SUMMARY PATIENT: SIDNEY KOWALSKI UNIT: [id number] ADM DATE: 09/06/20 AGE: 49 : 74 SEX: M ROOM/BED: D.2214 AUTHOR: DUKE,DOC PHYSICIAN: REFERRING PHYSICIAN: SREE DU MD DATE OF SERVICE: 09/08/20 Case Management Discharge Planning Summary DCP REVIEW SUMMARY ANTICIPATED D/C DATE: 09/08/2020 EXPECTED LOS : 2 CASE STATUS: DCP Initiated INITIAL REVIEW: 09/06/2020 INITIAL REVIEWER: Drew Russo FINAL DISCHARGE DISPOSITION: : FINAL REVIEWER: FINAL REVIEW DATE: DCP Focus Questions & Answers QUESTION: ANSWER : PATIENT: SIDNEY KOWALSKI ENCOUNTER: [id number] MEDICAL RECORD#: [id number] ADMISSION DATE: 09/06/2020 DISCHARGE DATE: ATTENDING MD: SREE MEDINA : AGE: 49 MARITAL STATUS: D DC PLAN ID: [id number] FACILITY: [facility] PRINTED ON: 09/08/20 18:00 CT All edits/amendments must be made on the electronic document DICTATION DATE: 09/08/201799 RESEARCH ASSOC: DM 09/08/20 1800 RPT#: [id number] DC DATE: STATUS: ADM IN [facility] [address] [place] [address] END OF REPORT
--- NOTE | 2020-09-08 18:11 | MORECARE ---
CASE MANAGEMENT DISCHARGE SUMMARY PATIENT: SIDNEY VUONG UNIT: [id number] ADM DATE: 09/06/20 AGE: 49 : 74 SEX: M ROOM/BED: D.2214 AUTHOR: MARIAN WALL PHYSICIAN: REFERRING PHYSICIAN: SREE DU MD DATE OF SERVICE: 09/08/20 Case Management Discharge Planning Summary COMMENTS ENTERED DATE: 09/08/20 18:05 CT COMMENT TYPE: Discharge Planning REVIEWER: Drew Russo CM met with patient to complete DC plan and to evaluate needs. Patient lives independently with his mother, Andressa Vuong, . Patient stated that his home is safe and has electricity and running water. Patient stated that he is a paraplegic and has a wheelchair at home that is sufficient for his mobility needs. Patient stated that he has no problems paying for medications and he fills his medications at [facility] pharmacy or [facility]. At discharge, the patient plans to return home and feels this is a safe discharge. CM discussed availability of home health, rehab services, and medical equipment. Patient declined HHS, SNF, IPR, and DME. Patient voiced no other needs at this time and is satisfied with DC plan. DC IMM delivered, telephonically explained and signed by the patient per isolation protocol, and placed in chart. Signed form also left with the patient. CM will continue to follow and will assist as needed with dc plans/needs DCP REVIEW SUMMARY ANTICIPATED D/C DATE: 09/08/2020 EXPECTED LOS : 2 CASE STATUS: DCP Initiated INITIAL REVIEW: 09/06/2020 INITIAL REVIEWER: Drew Russo FINAL DISCHARGE DISPOSITION: : FINAL REVIEWER: FINAL REVIEW DATE: DCP Focus Questions & Answers DCP Evaluation QUESTION: ANSWER Patient gives permission to discuss discharge plans with: (name, relationship and number) : mother, Andressa Vuong, Patient's ability to cope with chronic illness : d. No chronic illness Patient's current cognitive status: : *Oriented to person, place, situation, time and present Family / Caregiver's ability to cope with chronic illness: : a. Adequate (ability to meet patient's medical needs, ensures patient attends medical appts.) Patient and/or caregiver agree upon recommended discharge plan? : Yes Physical Status: : Mobility impaired Physical Status: : Partial care dependence Family / Caregiver's ability to cope with chronic illness: : a. Adequate (ability to meet patient's medical needs, ensures patient attends medical appts.) Functional screen assessment: : Basic needs can adequately be met by self Does the patient have the ability to pay for or attain post discharge needs / services? : Yes Partial Dependence, assistance required for: : Ambulation / Mobility Partial Dependence, assistance required for: : Dressing Living Arrangements: : Home with Extended Family Is there a likelihood that the patient will require additional services to return to the preadmission environment? : Yes Equipment needed for post hospitalization: : Walker - Rolling Baseline cognitive status: : *Oriented to person, place, situation, time and present Patient with capacity for self-care or can be cared for in same environment as prior to hospitalization? : Yes Physical environment modification needed / anticipated for discharge: : No Medication Management: : Patient states can afford medications Medication Management: : Patient states can read and understand medication labels Pharmacy name(s): : [facility] or [facility] Does Patient have transportation to get home and to follow-up medical appointments when discharged from the hospital? : Yes Would patient like to participate in any Care Coordination programs (if applicable): : Not applicable Does the patient have electricity at home? : Yes Does the patient have running water in their house? : Yes Equipment in use: : Wheelchair Mental health screen: : No mental health history DCP Re-evaluation QUESTION: ANSWER Would patient like to participate in any Care Coordination programs (if applicable): : Not applicable PATIENT: SIDNEY VUONG ENCOUNTER: [id number] MEDICAL RECORD#: [id number] ADMISSION DATE: 09/06/2020 DISCHARGE DATE: 09/08/2020 ATTENDING MD: SREE MEDINA : AGE: 49 MARITAL STATUS: D DC PLAN ID: [id number] FACILITY: [facility] PRINTED ON: 09/08/20 18:11 CT All edits/amendments must be made on the electronic document DICTATION DATE: 09/08/201810 TOWER SUPERVISOR: MENG 09/08/201810 RPT#: [id number] DC DATE:09/08/20 STATUS: DIS IN [id number] [place] [address] END OF REPORT
--- NOTE | 2020-09-11 15:47 | MORECARE ---
CASE MANAGEMENT DISCHARGE SUMMARY PATIENT: SIDNEY VUONG UNIT: [id number] ADM DATE: 09/06/20 AGE: 49 : 74 SEX: M ROOM/BED: D.2214 AUTHOR: MARIAN WALL PHYSICIAN: REFERRING PHYSICIAN: SREE DU MD DATE OF SERVICE: 09/11/20 Case Management Discharge Planning Summary COMMENTS ENTERED DATE: 09/08/20 18:05 CT COMMENT TYPE: Discharge Planning REVIEWER: Drew Russo CM met with patient to complete DC plan and to evaluate needs. Patient lives independently with his mother, Andressa Vuong, . Patient stated that his home is safe and has electricity and running water. Patient stated that he is a paraplegic and has a wheelchair at home that is sufficient for his mobility needs. Patient stated that he has no problems paying for medications and he fills his medications at [facility] pharmacy or [facility]. At discharge, the patient plans to return home and feels this is a safe discharge. CM discussed availability of home health, rehab services, and medical equipment. Patient declined HHS, SNF, IPR, and DME. Patient voiced no other needs at this time and is satisfied with DC plan. DC IMM delivered, telephonically explained and signed by the patient per isolation protocol, and placed in chart. Signed form also left with the patient. CM will continue to follow and will assist as needed with dc plans/needs DCP REVIEW SUMMARY ANTICIPATED D/C DATE: 09/08/2020 EXPECTED LOS : 2 CASE STATUS: DCP Initiated INITIAL REVIEW: 09/06/2020 INITIAL REVIEWER: Drew Russo FINAL DISCHARGE DISPOSITION: : FINAL REVIEWER: FINAL REVIEW DATE: DCP Focus Questions & Answers DCP Evaluation QUESTION: ANSWER Patient gives permission to discuss discharge plans with: (name, relationship and number) : mother, Andressa Vuong, Patient's ability to cope with chronic illness : d. No chronic illness Patient's current cognitive status: : *Oriented to person, place, situation, time and present Family / Caregiver's ability to cope with chronic illness: : a. Adequate (ability to meet patient's medical needs, ensures patient attends medical appts.) Patient and/or caregiver agree upon recommended discharge plan? : Yes Physical Status: : Mobility impaired Physical Status: : Partial care dependence Family / Caregiver's ability to cope with chronic illness: : a. Adequate (ability to meet patient's medical needs, ensures patient attends medical appts.) Functional screen assessment: : Basic needs can adequately be met by self Does the patient have the ability to pay for or attain post discharge needs / services? : Yes Partial Dependence, assistance required for: : Ambulation / Mobility Partial Dependence, assistance required for: : Dressing Living Arrangements: : Home with Extended Family Is there a likelihood that the patient will require additional services to return to the preadmission environment? : Yes Equipment needed for post hospitalization: : Walker - Rolling Baseline cognitive status: : *Oriented to person, place, situation, time and present Patient with capacity for self-care or can be cared for in same environment as prior to hospitalization? : Yes Physical environment modification needed / anticipated for discharge: : No Medication Management: : Patient states can afford medications Medication Management: : Patient states can read and understand medication labels Pharmacy name(s): : [facility] Does Patient have transportation to get home and to follow-up medical appointments when discharged from the hospital? : Yes Would patient like to participate in any Care Coordination programs (if applicable): : Not applicable Does the patient have electricity at home? : Yes Does the patient have running water in their house? : Yes Equipment in use: : Wheelchair Mental health screen: : No mental health history DCP Re-evaluation QUESTION: ANSWER Would patient like to participate in any Care Coordination programs (if applicable): : Not applicable PATIENT: SIDNEY VUONG ENCOUNTER: [id number] MEDICAL RECORD#: [id number] ADMISSION DATE: 09/06/2020 DISCHARGE DATE: 09/08/2020 ATTENDING MD: SREE MEDINA : AGE: 49 MARITAL STATUS: D DC PLAN ID: [id number] FACILITY: [facility] PRINTED ON: 09/11/20 15:47 CT All edits/amendments must be made on the electronic document DICTATION DATE: 09/11/201546 REHABILITATION THERAPY AIDE: MENG 09/11/201546 RPT#: [id number] DC DATE:09/08/20 STATUS: DIS IN [id number] [place] [address] END OF REPORT
== END 2020-09-08 18:00 | disposition home or self-care (01) | DRG 593 ==
LOC: D.ER 01:22 → D.EDHOLD 03:07 → D.MS 03:07
PROVIDERS: Family Medicine; ADMIT Emergency Medicine; ATTEND Emergency Medicine
DX: L89.309 Pressure ulcer of unspecified buttock, unspecified stage (principal); G82.20 Paraplegia, unspecified; N39.0 Urinary tract infection, site not specified; L89.159 Pressure ulcer of sacral region, unspecified stage; R62.7 Adult failure to thrive; Z68.35 Body mass index [BMI] 35.0-35.9, adult; D64.9 Anemia, unspecified; B88.0 Other acariasis; G89.29 Other chronic pain; M54.9 Dorsalgia, unspecified; K21.9 Gastro-esophageal reflux disease without esophagitis; Z86.73 Personal history of transient ischemic attack (TIA), and cerebral infarction without residual deficits; R21 Rash and other nonspecific skin eruption